=== PATIENT | male | born 1985 | race Caucasian/White ===

== ENCOUNTER 2017-11-02 05:52 | Emergency (ER) | payer OTHER ==
[~2017-11-02] VITALS: Ht 190.5 cm; Wt 108.9 kg
[2017-11-02] MEDS ORDERED: NORCO 5-325 TA1 EACH PO (06:20)
== END 2017-11-02 06:31 | disposition home or self-care (01) ==
LOC: ED 05:52
DX: M54.41 Lumbago with sciatica, right side (principal); Z79.899 Other long term (current) drug therapy
CPT/HCPCS: 99283

== ENCOUNTER 2019-03-28 10:15 | Emergency (ER) | payer OTHER ==
[~2019-03-28] VITALS: Ht 190.5 cm; Wt 90.7 kg
--- OUTSIDE RECORDS SUMMARY | ~2019-03-28 | XMS | Encounter Summary ---
Demographics + + + | Address | [address] | | | [place] [address] | + + + | Home Phone | | + + + | Preferred Language | Unknown | + + + | Marital Status | Single | + + + | Yazidism Affiliation | 1013 | + + + | Race | Unknown | + + + | Ethnic Group | Unknown | + + + Author + + + | Author | [facility] | | | and [place] | + + + | Organization | [facility] | | | and [place] [...] Team Providers + +------+ + | Care Rivet Passer Name | Role | Phone | + +------+ + PCP | Unavailable | + +------+ + Encounter Details +--------+ + + + + | Date | Type | Department | Care Team | Description | +--------+ + + + + | 08/11/ | Hospital | [facility] | | | | 1996 | Encounter | MED CTR GENERIC OP | | | | | | CONV DEPT [address] | | | | | | [place], | | | | | | [place] [address] | | | | | | [phone] | | | +--------+ + + + [...]
--- OUTSIDE RECORDS SUMMARY | ~2019-03-28 | XMS | Clinical Summary ---
Demographics + + + | Address | [address] | | | [place] [address] | + + + | Home Phone | | + + + | Preferred Language | Unknown | + + + | Marital Status | Single | + + + | Gnosticism Affiliation | 1013 | + + + | Race | Unknown | + + + | Ethnic Group | Unknown | + + + Author + + + | Author | [facility] | | | and [place] | + + + | Organization | [facility] | | | and [place] [...] Team Providers + +------+ + | Care Personal Computer Network Analyst Name | Role | Phone | [...]
--- OUTSIDE RECORDS SUMMARY | ~2019-03-28 | XMS | Clinical Summary ---
Demographics + + + | Address | [address] | | | [place] [address] | + + + | Home Phone | | + + + | Preferred Language | Unknown | + + + | Marital Status | Single | + + + | Yazdanism Affiliation | 1013 | + + + | Race | Unknown | + + + | Ethnic Group | Unknown | + + + Author + + + | Author | [facility] | | | and [place] | + + + | Organization | [facility] | | | and [...] Team Providers + +------+ + | Care Commercial Field Inspector Name | Role | Phone | [...]
--- OUTSIDE RECORDS SUMMARY | ~2019-03-28 | XMS | Encounter Summary ---
Demographics + + + | Address | [address] | | | [place] [address] | + + + | Home Phone | | + + + | Preferred Language | Unknown | + + + | Marital Status | Single | + + + | Jainism Affiliation | 1013 | + + + | Race | Unknown | + + + | Ethnic Group | Unknown | + + + Author + + + | Author | [facility] | | | and [place] | + + + | Organization | [facility] | | | and [...] Team Providers + +------+ + | Care Quill Fixer Name | Role | Phone | + +------+ + PCP | Unavailable | + +------+ + Encounter Details +--------+ + + + + | Date | Type | Department | Care Team | Description | +--------+ + + + + | 08/11/ | Hospital | [facility] | | | | 1996 | Encounter | MED CTR GENERIC OP | | | | | | CONV DEPT [address] | | | | | | [place], | | | | | | [place] [address] | | | | | | [phone] | | | +--------+ + + + [...]
[~2019-03-28 10:15] MED LIST: NORCO 5-325 TA1 EACH PO
== END 2019-03-28 14:20 | disposition home or self-care (01) ==
LOC: ED 10:15
DX: J10.1 Influenza due to other identified influenza virus with other respiratory manifestations (principal)
CPT/HCPCS: 71045; 80053; 80176; 85025; 87502; 96360; 96361; 99283-25; G0480; J7030

== ENCOUNTER 2019-03-29 18:33 | Observation (INO) | payer OTHER ==
[~2019-03-29] VITALS: Ht 190.5 cm; Wt 110.6 kg
--- OUTSIDE RECORDS SUMMARY | ~2019-03-29 | XMS | Clinical Summary ---
Demographics + + + | Address | [address] | | | [place] [address] | + + + | Home Phone | | + + + | Preferred Language | Unknown | + + + | Marital Status | Single | + + + | Sikhism Affiliation | 1013 | + + + | Race | Unknown | + + + | Ethnic Group | Unknown | + + + Author + + + | Author | [facility] | | | and [place] | + + + | Organization | [facility] | | | and [place] | [...] Team Providers + +------+ + | Care Top Spotter Name | Role | Phone | + +------+ + PCP | Unavailable | + +------+ + Allergies Not on File Medications Not on file Active Problems Not on file Social History + +-------+ +--------+------+ | Tobacco [...] recent travel history available. | + + Last Filed Vital Signs Not on file Plan of Treatment + + + + + | Health Maintenance | Due Date | Last Done | Comments | + + + + + | Vaccine: | | | | | Dtap/Tdap/Td (1 - | 2 | | | | Tdap) | | | | + + + + + | Vaccine: Influenza | | | | | (#1) | 9 | | | + + + + + Results Not on filefrom Last 3 Months"
--- OUTSIDE RECORDS SUMMARY | ~2019-03-29 | XMS | Encounter Summary ---
Demographics + + + | Address | [address] | | | [place] [address] | + + + | Home Phone | | + + + | Preferred Language | Unknown | + + + | Marital Status | Single | + + + | Latter Day Affiliation | 1013 | + + + | Race | Unknown | + + + | Ethnic Group | Unknown | + + + Author + + + | Author | [facility] | | | and [place] | + + + | Organization | [facility] [...] Team Providers + +------+ + | Care Customer Management Specialist Name | Role | Phone | + +------+ + PCP | Unavailable | + +------+ + Encounter Details +--------+ + + + + | Date | Type | Department | Care Team | Description | +--------+ + + + + | 08/11/ | Hospital | [facility] | | | | 1996 | Encounter | MED CTR GENERIC OP | | | | | | CONV DEPT [address] | | | | | | [place], | | | | | | [place] [address] | | | | | | [phone] | | | +--------+ + + + [...]
--- OUTSIDE RECORDS SUMMARY | ~2019-03-29 | XMS | Encounter Summary ---
Demographics + + + | Address | [address] | | | [place] [address] | + + + | Home Phone | | + + + | Preferred Language | Unknown | + + + | Marital Status | Single | + + + | Adventism Affiliation | 1013 | + + + | Race | Unknown | + + + | Ethnic Group | Unknown | + + + Author + + + | Author | [facility] | | | and [place] | + + + | Organization | [facility] | | | and [place] [...] Team Providers + +------+ + | Care Laminating Machine Operator Helper Name | Role | Phone | + +------+ + PCP | Unavailable | + +------+ + Encounter Details +--------+ + + + + | Date | Type | Department | Care Team | Description | +--------+ + + + + | 08/11/ | Hospital | [facility] | | | | 1996 | Encounter | MED CTR GENERIC OP | | | | | | CONV DEPT [address] | | | | | | [place], | | | | | | [place] [address] | | | | | | [phone] | | | +--------+ + + + [...]
--- OUTSIDE RECORDS SUMMARY | ~2019-03-29 | XMS | Encounter Summary ---
Demographics + + + | Address | [address] | | | [place] [address] | + + + | Home Phone | | + + + | Preferred Language | Unknown | + + + | Marital Status | Single | + + + | Lutheran Affiliation | 1013 | + + + | Race | Unknown | + + + | Ethnic Group | Unknown | + + + Author + + + | Author | [facility] | | | and [place] | + + + | Organization | [facility] | | | and [place] [...] Team Providers + +------+ + | Care Clicker Operator Name | Role | Phone | + +------+ + PCP | Unavailable | + +------+ + Encounter Details +--------+ + + + + | Date | Type | Department | Care Team | Description | +--------+ + + + + | 08/11/ | Hospital | [facility] | | | | 1996 | Encounter | MED CTR GENERIC OP | | | | | | CONV DEPT [address] | | | | | | [place], | | | | | | [place] [address] | | | | | | [phone] | | | +--------+ + + + [...]
--- OUTSIDE RECORDS SUMMARY | ~2019-03-29 | XMS | Encounter Summary ---
Demographics + + + | Address | [address] | | | [place] [address] | + + + | Home Phone | | + + + | Preferred Language | Unknown | + + + | Marital Status | Single | + + + | Jewish Affiliation | 1013 | + + + | Race | Unknown | + + + | Ethnic Group | Unknown | + + + Author + + + | Author | [facility] | | | and [place] | + + + | Organization | [facility] [...] Team Providers + +------+ + | Care Retail Service Specialist Name | Role | Phone | + +------+ + PCP | Unavailable | + +------+ + Encounter Details +--------+ + + + + | Date | Type | Department | Care Team | Description | +--------+ + + + + | 08/11/ | Hospital | [facility] | | | | 1996 | Encounter | MED CTR GENERIC OP | | | | | | CONV DEPT [address] | | | | | | [place], | | | | | | [place] [address] | | | | | | [phone] | | | +--------+ + + + [...]
--- OUTSIDE RECORDS SUMMARY | ~2019-03-29 | XMS | Clinical Summary ---
Demographics + + + | Address | [address] | | | [place] [address] | + + + | Home Phone | | + + + | Preferred Language | Unknown | + + + | Marital Status | Single | + + + | Mu-Ism Affiliation | 1013 | + + + | Race | Unknown | + + + | Ethnic Group | Unknown | + + + Author + + + | Author | [facility] | | | and [place] | + + + | Organization | [facility] | | | and [place] [...] Team Providers + +------+ + | Care Tentmaker Name | Role | Phone | + +------+ + | No, Physician | PCP | Unavailable | + +------+ + Allergies No Known Allergies Medications No known medications Active Problems + + + | Problem | Noted Date | + + + | 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 | + + + Encounters +--------+ + + + + | Date | Type | Specialty | Care Team | Description | +--------+ + + + + | 03/30/ | Hospital | Internal Medicine | Adilia Powers MD | | | 2019 | Encounter | | | | +--------+ + + + [...] + + + | Blood Pressure | 127/76 | 03/30/2019 3:48 PM | | | | | PST | | + + + + + | Pulse | 72 | 03/30/2019 3:48 PM | | | | | PST | | + + + + + | Temperature | 36.8 C (98.2 F) | 03/30/2019 3:48 PM | | | | | PST | | + + + + + | Respiratory Rate | 16 | 03/30/2019 3:48 PM | | | | | PST | | + + + + + | Oxygen Saturation | 95% | 03/30/2019 3:48 PM | | | | | PST | | + + + + + | Inhaled Oxygen | - | - | | | Concentration | | | | + + + + + | Weight | - | - | | + + + + + | Height | 190.5 cm (6' 3") | 03/30/2019 1:10 PM | | | | | PST | | + + + + + | Body Mass Index | - | - | | + + + + + Plan of Treatment + + + + [...] | | + + + + + Procedures The patient is currently admitted. The information in this section might not be complete un til the patient is discharged. + +--------+ + + + | Procedure [...] section. | + +--------+ + + + from Last [address] Angiogram Head Neck w Contrast (03/30/2019 [...] | | | + +---------+ + + from Last 3 Months Advance Directives + + + + + | Type | Date Recorded | Patient | Explanation | | | | Crosstie Inspector | | + + + + + | Power of | | | | | Pathology Laboratory Director | | | | + + + + + | Advance | 03/30/2019 | | | | Directive | 3:09 PM | | | + + + + + + + + + + | Code Status | Date | Date | Comments | | | Activated | Inactivated | | + + + + + | Full Code | 03/30/2019 | | | | | 1:16 PM | | | + + + + +
--- OUTSIDE RECORDS SUMMARY | ~2019-03-29 | XMS | Encounter Summary ---
Demographics + + + | Address | [address] | | | [place] [address] | + + + | Home Phone | | + + + | Preferred Language | Unknown | + + + | Marital Status | Single | + + + | Moravian Affiliation | 1013 | + + + | Race | Unknown | + + + | Ethnic Group | Unknown | + + + Author + + + | Author | [facility] | | | and [place] | + + + | Organization | [facility] | | | and [place] | [...] Team Providers + +------+ + | Care Information Support Project Manager Name | Role | Phone | + +------+ + | No, Physician | PCP | Unavailable | + +------+ + Encounter Details +--------+ + + + + | Date | Type | Department | Care Team | Description | +--------+ + + + + | 03/30/ | Hospital | [facility] | Adilia Powers MD | | | 2019 | Encounter | [facility] | [address] | | | | | CARE [address]LO[address] | [place] [address] | | | | | [address] | [phone] | | | | | [place], [place] | | | | | | [address] | | | | | | [phone] | | | +--------+ + + + [...] + + + documented in this encounter Plan of Treatment + +------+--------+ + + | Name | Type | Priori | Associated Diagnoses | Date/Time | | | | ty | | | + +------+--------+ + + | Hypercoag Consult, | Lab | Routin | | 03/30/2019 2:21 PM | | Extended Panel | | e | | PST | + +------+--------+ + + + + +--------+ + + | Name | Type | Priori | Associated Diagnoses | Order Schedule | | | | ty | | | + + +--------+ + + | ECHO Complete | Echocardiog | Routin | | One time imaging One | | | magdaleno | e | | time imaging for 1 | | | | | | Occurrences starting | | | | | | 03/30/2019 until | | | | | | 03/30/2019 | + + +--------+ + + | Oxygen Therapy | Respiratory | Routin | | Until Discontinued | | | Care | e | | until discontinued | | | | | | starting 03/30/2019 | + + +--------+ + + | POCT Glucose | Point of | Routin | | BID As Needed until | | | Care | e | | discontinued | | | Testing | | | starting 03/30/2019 | + + +--------+ + + | CBC with | Lab | Routin | | AM Lab Morning Lab | | Differential | | e | | for 1 Days starting | | | | | | 03/31/2019 until | | | | | | 03/31/2019 | + + +--------+ + + | Comprehensive | Lab | Routin | | AM Lab Morning Lab | | Metabolic Panel | | e | | for 1 Days starting | | | | | | 03/31/2019 until | | | | | | 03/31/2019 | + + +--------+ + + | Hemoglobin A1C | Lab | Routin | | AM Lab Morning Lab | | | | e | | for 1 Days starting | | | | | | 03/31/2019 until | | | | | | 03/31/2019 | + + +--------+ + + | Lipid Panel | Lab | Routin | | AM Lab Morning Lab | | | | e | | for 1 Days starting | | | | | | 03/31/2019 until | | | | | | 03/31/2019 | + + +--------+ + + | MRI Brain w wo | Imaging | Routin | | One time imaging One | | Contrast | | e | | time imaging for 1 | | | | | | Occurrences starting | | | | | | 03/30/2019 until | | | | | | 03/30/2019 | + + +--------+ + + | Hypercoag Consult, | Lab | Routin | | One Time for 1 | | Extended Panel | | e | | Occurrences starting | | | | | | 03/30/2019 until | | | | | | 03/30/2019 | + + +--------+ + + documented as of this encounter Procedures The patient is currently admitted. The [...] + + documented in this encounter Results CT Angiogram Head Neck w Contrast [...] | Signed by: John Paul Emanuel Richard Sign Date/Time: 03/30/2019 4:24 | | | [...] + | Diagnosis | + + | embolic CVA - Primary | + + documented in this encounter Administered Medications + +--------+---------+------+------+------+ | Medication Order | MAR | Action | Dose | Rate | Site | | | Action | Date | | | | + +--------+---------+------+------+------+ + +---+ | aspirin EC tablet 325 mg 325 | | | mg, Oral, DAILY, First dose on | | | 03/31/19 at 0900, Do not cut | | | or crush., | | + +---+ | | | + +---+ | aspirin suppository 300 mg 300 | | | mg, Rectal, DAILY, First dose on | | | 03/31/19 at 0900 | | + +---+ | | | + +---+ + +-------+ +-------+---+---+ | atorvaSTATin (LIPITOR) tablet | Given | 03/30/20 | 80 mg | | | | 80 mg 80 mg, Oral, DAILY, First | | 19 2:26 | | | | | dose on Fri03/30/19 at 1345 | | PM PST | | | | + +-------+ +-------+---+---+ +---+---+ | | | +---+---+ + +-------+ +-------+---+ + | enoxaparin (LOVENOX) 40 mg/0.4 | Given | 03/30/20 | 40 mg | | Abdomen- | | mL injection 40 mg 40 mg, | | 19 2:26 | | | RLQ | | Subcutaneous, EVERY 24 HOURS | | PM PST | | | | | (Daily), First dose on Fri | | | | | | | 03/30/19 at 1400 | | | | | | + +-------+ +-------+---+ + + +---+ | | | + +---+ | gadobutrol (GADAVIST) injection | | | 10 mL 10 mL, Intravenous, ONCE | | | PRN, Other, Starting 03/30/19 | | | at 1654, For 1 dose, MRI | | + +---+ | | | + +---+ | influenza quadrivalent | | | (FLUZONE, FLUARIX, AFLURIA | | | QUADRIVALENT) vaccine injection | | | (syringe) 0.5 mL 0.5 mL, | | | Intramuscular, ONE TIME VACCINE, | | | 03/31/19 at 1000, For 1 dose, | | | Give patient education | | | information. Jonatan prior to use., | | | | | + +---+ | | | + +---+ +---+ | | +---+ + +--------+ +--------+------+------+ | Medication Order | MAR | Action | Dose | Rate | Site | | | Action | Date | | | | + +--------+ +--------+------+------+ | aspirin chewable tablet 324 mg | Given | 03/30/20 | 324 mg | | | | 324 mg, Oral, ONCE, e 03/30/19 | | 19 2:26 | | | | | at 1345, For 1 dose | | PM PST | | | | + +--------+ +--------+------+------+ +---+---+ | | | +---+---+ + +-------+ +---------+---+---+ | iohexol (OMNIPAQUE 350) [...]
--- OUTSIDE RECORDS SUMMARY | ~2019-03-29 | XMS | Clinical Summary ---
Demographics + + + | Address | [address] | | | [place] [address] | + + + | Home Phone | | + + + | Preferred Language | Unknown | + + + | Marital Status | Single | + + + | Latter-Day Affiliation | 1013 | + + + | Race | Unknown | + + + | Ethnic Group | Unknown | + + + Author + + + | Author | [facility] | | | and [place] | + + + | Organization | [facility] | | | and [place] [...] Team Providers + +------+ + | Care Employment Attorney Name | Role | Phone | + [...]
--- OUTSIDE RECORDS SUMMARY | ~2019-03-29 | XMS | Clinical Summary ---
Demographics + + + | Address | [address] | | | [place] [address] | + + + | Home Phone | | + + + | Preferred Language | Unknown | + + + | Marital Status | Single | + + + | Scientology Affiliation | 1013 | + + + | Race | Unknown | + + + | Ethnic Group | Unknown | + + + Author + + + | Author | [facility] | | | and [place] | + + + | Organization | [facility] | [...] Team Providers + +------+ + | Care Business Management Manager Name | Role | Phone | [...]
--- OUTSIDE RECORDS SUMMARY | 2019-03-29 18:36 | XMS ---
PreManage Notification: EILEEN ROWE Security Visual Educator Events No recent Security Events currently on file CRITERIA MET - [facility] - 2 Visits in 30 Days CARE PROVIDERS There are no care providers on record at this time. Eugenio has no Care Guidelines for this patient. [facility] NOTE: Visits indicate total known visits. ED/C VISIT TRACKING (12 MO.) 03/29/2019 18:[address] [facility] [place] TYPE: Emergency COMPLAINT: - ALTERED LOC 03/28/2019 10:15 [facility] [place] TYPE: Emergency COMPLAINT: - DISORIENTED INPATIENT VISIT TRACKING (12 MO.) No inpatient visits to display in this time frame [email or web address]
--- NOTE | 2019-03-29 23:24 | NUR ---
PT ADMITTED TO ROOM 121 FROM ED. ALTERED MENTAL STATUS. PT ANSWERED QUESTIONS, BUT DID ASK FATHER FOR ANSWERS. AWARE OF SURROUNDINGS. STEADY ON FEET, HOWEVER WITH HIS RECENT MENTAL STATUS, BED ALARM WILL BE USED. DENIED NEED TO USE BATHROOM. EDUCATED TO CALL LIGHT, AND TO NOT GET UP, HE WAS TOLD THE BED ALARM WAS PLACED FOR HIS SAFETY.
--- NOTE | 2019-03-30 00:01 | NUR ---
ASSESSMENT COMPLETE. SCHEDULED MEDS GIVEN WITH PUDDING TO PREVENT STOMACH IRRITATION, NO ISSUES NOTED. PT ANSWERING QUESTIONS APPROPRIATELY, ALERT AND ORIENTED X 3. DENIES PAIN OR NAUSEA. REORIENTED TO ROOM AND CALL LIGHT. BED ALARM ON FOR SAFETY. CALL LIGHT IN REACH.
--- NOTE | 2019-03-30 02:16 | NUR ---
FAMILY AT BEDSIDE. PT RESTING WITH EYES CLOSED ON LEFT SIDE, NO APPARENT DISTRESS. RR EVEN AND UNLABORED. IVF INFUSING PER ORDER. CALL LIGHT IN REACH.
--- NOTE | 2019-03-30 05:55 | NUR ---
PT UP TO BR WITH SBA TO VOID 500 ML YELLOW URINE. PT A LITTLE UNSTEADY WHEN FIRST STANDING BUT AFTER STANDING FOR A FEW SECONDS GAIT BECAME STEADY. BACK TO BED, RAHAT WELL. PT ALERT AND ORIENTED X 3. SLOW TO RESPOND AT TIMES WHEN ASKED QUESTIONS BUT ANSWERS APPROPRIATELY. RECALLS THAT HIS FATHER AND SISTER BROUGHT HIM TO THE ED BECAUSE THEY WERE CONCERNED ABOUT HIS WELL BEING. IVF INFUSING. PT DENIES OTHER NEEDS, CALL LIGHT WITHIN REACH. BED ALARM ON.
--- NOTE | 2019-03-30 06:00 | NUR ---
PT ADMITTED FOR ALTERED SENSORIUM. SLEPT WELL. ALERT AND ORIENTED TO PERSON, PLACE, AND TIME. AT TIMES SLOW TO RESPOND TO QUESTIONS OR COMMANDS. DENIES PAIN OR NAUSEA. IVF. VOIDING QS. SBA. BED ALARM. REG DIET.
--- NOTE | 2019-03-30 07:15 | NUR ---
Patient leaves unit with imaging to MRI
--- NOTE | 2019-03-30 07:30 | NUR ---
Report received, orders acknowledged.
--- NOTE | 2019-03-30 07:45 | NUR ---
Patient returned to floor from imaging
--- NOTE | 2019-03-30 08:30 | NUR ---
Patient laying in bed watching tv with parents at bedside. Patient reports nausea, prn antiemetic given. Denies pain. LR running at 150 mls/hr. Assessment complete. Denies further needs at this time, call light within reach.
--- NOTE | 2019-03-30 09:20 | NUR ---
No breakfast delivered, patient denies need for breakfast. Patient encouraged to eat breakfast, continues to deny need for breakfast. Family in room, call light within reach.
--- NOTE | 2019-03-30 09:40 | NUR ---
PATIENT RESTING IN BED. PARENTS IN ROOM. VITAL SIGNS AND I&O DONE. PATIENT REFUSED TO ORDER BREAKFAST. CALL LIGHT WITHIN REACH. NO OTHER NEEDS AT THIS TIME
--- NOTE | 2019-03-30 09:45 | NUR ---
Patient sleeping in bed, rouses to voice. Denies nausea, states antiemetic helped. Family in room. Denies further needs at this time, call light within reach.
--- NOTE | 2019-03-30 11:40 | NUR ---
Transport arrived to take patient to [facility]. Report given. Patient leaves unit via stretcher. 1150: Report given to JOHN Villa at [facility]
--- NOTE | 2019-03-30 13:05 | NUR ---
SPENT QUITE A BIT OF TIME WITH PARENTS. HE SHARED WITH ME THAT HE HAD A STROKE AT THE SAME AGE HIS SON-ALITTLE UNNERVING FOR HIM. HAD PRAYER WITH PARENTS, GAVE THEM A LF PACKING LIST AND ESCORTED THEM OUT WITH PT EMT ARRIVED TO TRANSFER TO [facility]. GAVE ENCOURAGEMENT TO PT WELL.
== END 2019-03-30 11:40 | disposition short-term general hospital (02) ==
LOC: ED 18:33 → MS 18:34 → ED 22:36 → MS 22:36
PROVIDERS: ADMIT Internal Medicine
DX: I63.9 Cerebral infarction, unspecified (principal); E87.6 Hypokalemia; R93.0 Abnormal findings on diagnostic imaging of skull and head, not elsewhere classified; Z82.49 Family history of ischemic heart disease and other diseases of the circulatory system
CPT/HCPCS: 70450; 70551; 80053; 81001; 84270; 84403; 85025; 86140; 96360; 96361; 96374; 99284-25; G0378; J2405; J7030; J7121

== ENCOUNTER 2019-04-03 16:01 | Emergency (ER) | payer OTHER ==
[~2019-04-03] VITALS: Ht 190.5 cm; Wt 110.7 kg
--- OUTSIDE RECORDS SUMMARY | ~2019-04-03 | XMS | Encounter Summary ---
Demographics + + + | Address | [address] | | | [place] [address] | + + + | Home Phone | | + + + | Preferred Language | Unknown | + + + | Marital Status | Single | + + + | Scientologist Affiliation | [id number] | + + + | Race | Unknown | + + + | Ethnic Group | Unknown | + + + Author + + + | Author | [facility] | | | and [place] | + + + | Organization | [facility] | | | and [place] | + + + | Address | [...] Team Providers + +------+ + | Care [employer] Name | Role | Phone | + +------+ + | Ignacio Little DO | PCP | | + +------+ + Reason for Visit + + + | Reason | Comments | + + + | Disability Form | | + + + Encounter Details +--------+ + + + + | Date | Type | Department | Care Team | Description | +--------+ + + + + | 04/02/ | Telephone | [facility] | Janie Patel | Disability Form | | 2019 | | [address] | T, RN | | | | | [place] | | | | | | [phone] | | | | | | [phone] | | | +--------+ + + + [...] as of this encounter Plan of Treatment Not on filedocumented as of this encounter Visit Diagnoses Not on filedocumented in this encounter"
--- OUTSIDE RECORDS SUMMARY | ~2019-04-03 | XMS | Encounter Summary ---
Demographics + + + | Address | [address] | | | [place] [address] | + + + | Home Phone | | + + + | Preferred Language | Unknown | + + + | Marital Status | Single | + + + | Taoist Affiliation | 1013 | + + + | Race | Unknown | + + + | Ethnic Group | Unknown | + + + Author + + + | Author | [facility] | | | and [place] | + + + | Organization | [facility] | | | and [place] | [...] Team Providers + +------+ + | Care Platform Builder Name | Role | Phone | + +------+ + | No, Physician | PCP | Unavailable | + +------+ + Reason for Referral Evaluate & Treat (Urgent) +--------+ + + + + + | Status | Reason | Specialty | Diagnoses / | Referred By | Referred To | | | | | Procedures | Contact | Contact | +--------+ + + + + + | Closed | Specialty | Occupational | Diagnoses | Koko, | [facility] | | | Services | Therapy | | MD Jessica | [address] | | | Required | | Cerebrovascu | [address] | | | | | lar accident | [address] | [place] | | | | | (CVA) due | [place] | [address] | | | | | to embolism | [address] | Phone: | | | | | of middle | Phone: | [phone] | | | | | cerebral | [phone] | Fax: | | | | | artery, | Fax: | [phone] | | | | | unspecified | [phone] | | | | | | blood vessel | | | | | | | laterality | | | | | | | (HCC) | | | | | | | Procedures | | | | | | | OT Adult | | | +--------+ + + + + + Evaluate & Treat (Routine) +--------+ + + + + + | Status | Reason | Specialty | Diagnoses / | Referred By | Referred To | | | | | Procedures | Contact | Contact | +--------+ + + + + + | Closed | Specialty | Physical | Diagnoses | Koko | [facility] | | | Services | Therapy | | MD Jessica | [address] | | | Required | | Cerebrovascu | [address] | | | | | lar accident | [address]VD | [place] | | | | | (CVA) due | [place], [place] | [address] | | | | | to embolism | [address] | Phone: | | | | | of middle | Phone: | [phone] | | | | | cerebral | [phone] | Fax: | | | | | artery, | Fax: | [phone] | | | | | unspecified | [phone] | | | | | | blood vessel | | | | | | | laterality | | | | | | | ([facility]) | | | +--------+ + + + + + Evaluate & Treat (Urgent) +--------+ + + + + + | Status | Reason | Specialty | Diagnoses / | Referred By | Referred To | | | | | Procedures | Contact | Contact | +--------+ + + + + + | Closed | Specialty | Speech | Diagnoses | Koko, | | | | Services | Pathology / | | MD Jessica | | | | Required | Speech | Cerebrovascu | [address] | | | | | Therapy | lar accident | [address] | | | | | | (CVA) due | [place] | | | | | | to embolism | [address] | | | | | | of [facility] | Phone: | | | | | | cerebral | [phone] | | | | | | artery, | Fax: | | | | | | unspecified | [phone] | | | | | | blood vessel | | | | | | | laterality | | | | | | | (HCC) | | | +--------+ + + + + + Consultation (Routine) + + + + + + + | Status | Reason | Specialty | Diagnoses / | Referred By | Referred To | | | | | Procedures | Contact | Contact | + + + + + + + | Pending | Specialty | Neurology | Diagnoses | Koko, | | | Review | Services | | | MD Jessica | | | | Required | | Cerebrovascu | [address] | | | | | | lar accident | [address] | | | | | | (CVA) due | [place] | | | | | | to embolism | [address] | | | | | | of [facility] | Phone: | | | | | | cerebral | [phone] | | | | | | artery, | Fax: | | | | | | unspecified | [phone] | | | | | | blood vessel | | | | | | | laterality | | | | | | | (HCC) | | | + + + + + + + Reason for Visit Auth/Cert +--------+--------+ + + + + | Status | Reason | Specialty | Diagnoses / | Referred By | Referred To | | | | | Procedures | Contact | Contact | +--------+--------+ + + + + | | | | Diagnoses | | | | | | | EMbolic CVA | | | +--------+--------+ + + + + Encounter Details +--------+ + + + + | Date | Type | Department | Care Team | Description | +--------+ + + + + | 03/30/ | Hospital | [facility] | Adilia Powers MD | Cerebrovascular | | 2019 - | Encounter | [facility] | [address] | accident (CVA) due | | | | CARE FLOOR [address] | [place] [address] | to embolism of | | 04/01/ | | [address] | [phone] | middle cerebral | | 2019 | | [place], [place] | | artery, unspecified | | | | [address] | Jessica Sutherland MD | blood vessel | | | | [phone] | [address] | laterality (HCC) | | | | | [place] [address] | (Primary Dx); Acute | | | | | [phone] | ischemic stroke | | | | | | (HCC); Acute lacunar | | | | | | stroke (HCC); | | | | | | Encephalopathy acute | +--------+ + + + + Social [...] + + documented as of this encounter Last Filed Vital Signs + + + + + | Vital Sign | Reading | Time Taken | Comments | + + + + + | Blood Pressure | 107/64 | 04/01/2019 11:07 AM | | | | | PST | | + + + + + | Pulse | 72 | 04/01/2019 11:07 AM | | | | | PST | | + + + + + | Temperature | 36.6 C (97.8 F) | 04/01/2019 11:07 AM | | | | | PST | | + + + + + | Respiratory Rate | 17 | 04/01/2019 11:07 AM | | | | | PST | | + + + + + | Oxygen Saturation | 93% | 04/01/2019 11:07 AM | | | | | PST | | + + + + + | Inhaled Oxygen | - | - | | | Concentration | | | | + + + + + | Weight | 111 kg (244 lb 12.8 | 04/01/2019 3:24 AM | | | | oz) | PST | | + + + + + | Height | 190.5 cm (6' 3") | 03/30/2019 1:10 PM | | | | | PST | | + + + + + | Body Mass Index | 30.6 | 03/30/2019 1:10 PM | | | | | PST | | + + + + + documented in this encounter Discharge Summaries Jessica Sutherland MD - 04/01/2019 1:18 PM PSTFormatting of this note might be different from zenobia voss. Patient: Cristino Hickman : 1985 Date of Admission: 03/30/2019 Date of Discharge: 04/01/2019 Treatment Team: Timothy Carson MD Discharging Provider: Jessica Sutherland MD Discharge Diagnoses: Principal Problem: embolic CVA Procedures Performed: Chief Complaint: No chief complaint on file. 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 Patient was living with his girlfriend and parents in [facility] when they noted that he was altered. He had difficulty with com munication and memory impairment. He also had symptoms suggestive of apraxia he was seen i n the emergency department and was diagnosed with influenza B and was discharged home his sister checked up on him and since there was no improvement of his symptoms she decided to t parker him to [facility] yesterday. Patient denies any headache, blurry vision, nausea, vomiting, facial droop but does have slow thought process. Patient denies any upp er or lower extremity weakness or paresthesias he denies any chest pain or shortness of dante th. He denies any tobacco use, alcohol use, illicit drug use. He was taking testosterone shots for questionable low testosterone levels but has not taken anything since the last 1 month. At [facility] his vitals were stable.Labs were unremarkable. UDS was ne gative. CT head showed pituitary lesion likely representing a micro-or macroadenoma but wi th nonspecific white matter changes with consideration of demyelinating process. He was ad mitted overnight for observation by the hospitalist team and underwent an MRI today which sh owed multiple bilateral and small periventricular and subcortical white matter infarcts prim arily involving the middle cerebral artery distribution. Patient has been transferred for further neurological evaluation. He was on tele , remained sinus. ekg showed sinus. Was started on asa, high dose statins. BP management. His bp remained low 100's with no meds. Echo did not show any PFO's, valv e issues. Pt/ot/speech consulted. Recommended outpt f/u. Dr Lieberman consulted for recs. Hypercoag w/u pending. referrral to [facility] neuro done. Needs g enetic testing, notch3 gene testing,etc. Needs pcp, but family said they will get their own pcp setup. I offered CM to setup [facility] pcp, but they declined. [facility] neuro referral al so done. [place] papers signed. Discharge Exam and Data: Vital Signs: BP 107/64 | Pulse 72 | Temp 36.6 C (97.8 F) (Oral) | Resp 17 | Ht 1.905 m (6' 3") | Wt 111 kg (244 lb 12.8 oz) | SpO2 93% | BMI 30.60 kg/m Physical Exam Physical Exam: Constitutional: Alert and oriented to person, place, and time. Appears well-developed and w ell-nourished. HEENT: Neck supple, no JVD, non icteric sclera. Cardiovascular: Normal rate, regular rhythm, normal heart sounds with S1 and S2, Exam re veals no gallop and no friction rub. No murmur heard. No S3, No S4 Pulmonary/Chest: Effort normal and breath sounds normal. No stridor. No respiratory distres s. no wheezes. no rales. exhibits no tenderness. Abdominal: Soft. Bowel sounds are normal. exhibits no distension and no palpable mass. Ther e is no tenderness. There is no rebound and no guarding. Extremeties/Musculoskeletal: Normal range of motion.exhibits no tenderness. exhibits no ed sho. Neurological: Alert and oriented to person, place, and time. Motor, sensation intact. Fol lows commands. Perrla language and speech seem adequate. No slurred speech. Skin: Skin is warm and dry. Recent Labs Recent Labs Lab 03/31/19 0512 WBC 8.46 HGB 15.7 HCT 44.1 PLT 269 Recent Labs Lab 03/31/19 0512 NA 139 K 3.7 CL 108 CO2 26 BUN 12 CALCIUM 9.5 No results for input(s): INR in the last 168 hours. Recent Radiology Results Recent Results (from the past 360 hour(s)) CT Angiogram Head Neck w Contrast Impression 1. Decreased attenuation corresponds to areas of diffusion restriction seen on MRI consistent with subacute ischemia. No new areas identified. 2. No hemorrhagic transformation is demonstrated. 3. No intracranial aneurysm or occlusion. 4. No high-grade stenosis, aneurysm or dissection of the cervical arterial vasculature. Signed by: John Paul Emanuel Richard Sign Date/Time: 03/30/2019 4:[address] Angiogram Head Neck W Contrast Result Date: 03/30/2019 CT ANGIOGRAM OF THE HEAD WITHOUT AND WITH CONTRAST; CT ANGIOGRAM OF THE NECK WITH CONTRAST CLINICAL INFORMATION: Stroke yesterday. COMPARISON: None PROCEDURE: CT Head: Axial images we re obtained through the brain IV without contrast. CT Angiogram Head: Thin section axial daren ges were obtained through the brain during the arterial phase after IV administration. CT An giogram Neck: Thin section axial images were obtained through the neck during the arterial p hase after IV administration. NASCET criteria applied for internal carotid stenosis determin ation. 3D and multiplanar reconstructions were obtained from the acquisition data. Contrast: 100 ml omnipaque 350 IV. At least one of the following CT dose optimization techniques were used: Automated exposure control; Adjustment of mA and/or kV according to patient size; Use of iterative reconstruction technique. FINDINGS: CT Head: Brain: No midline shift is presen t. No uncal or tonsillar herniation is present. Decreased attenuation of the periventricul ar and subcortical white matter is noted, in similar distribution to areas of diffusion rest riction and prior T2 FLAIR signal. Ventricles and extra-axial fluid spaces: Normal. Paranasa l sinuses and mastoid air cells: There is mild mucosal thickening of the bilateral maxillary sinuses. There is debris along the external auditory canal bilaterally. Calvarium and extr acranial soft tissues: Normal. Orbits: Imaged portions of the orbits are normal. CTA Head: I ntracranial Segments of the Internal Carotid Arteries: Normal contrast enhancement without e vidence of occlusion, intraluminal thrombus, significant stenosis, or aneurysm. Middle Cereb ral Arteries: Normal contrast enhancement without evidence of occlusion, intraluminal thromb us, significant stenosis, or aneurysm. Anterior Cerebral Arteries: Normal contrast enhanceme nt without evidence of occlusion, intraluminal thrombus, significant stenosis, or aneurysm. Posterior Circulation: Intracranial segments of the vertebral arteries, basilar artery, infe rior cerebellar, superior cerebellar, and posterior cerebral arteries demonstrate normal con trast enhancement without evidence of occlusion, intraluminal thrombus, significant stenosis , or aneurysm. CTA Neck: Aortic Arch: Conventional anatomy. Brachiocephalic and subclavian a rteries demonstrate normal contrast enhancement without evidence of occlusion, intraluminal thrombus, or significant stenosis. Right Carotid Artery: Carotid origin, common carotid lissa ry, carotid bifurcation, external carotid artery, and cervical segments of the internal lynch tid artery demonstrate normal contrast enhancement without evidence of occlusion, intralumin al thrombus, dissection, or significant stenosis. The internal carotid artery measures 6.4 mm on image 130 of series 8 and distally measures 4.3 mm consistent with 0% stenosis. Left C arotid Artery: Carotid origin, common carotid artery, carotid bifurcation, external carotid artery, and cervical segments of the internal carotid artery demonstrate normal contrast enh ancement without evidence of occlusion, intraluminal thrombus, dissection, or significant st enosis. The internal carotid artery measures 7.1 mm on image 133 of series 8 and distally m easures 5.7 mm consistent with 0% stenosis by NASCET criteria. Vertebral Arteries: Vertebral artery origins and cervical segments of the vertebral arteries demonstrate normal contrast enhancement without evidence of occlusion, intraluminal thrombus, dissection, or significant stenosis. 1. Decreased attenuation corresponds to areas of diffusion restriction seen on MRI consiste nt with subacute ischemia. No new areas identified. 2. No hemorrhagic transformation is dem onstrated. 3. No intracranial aneurysm or occlusion. 4. No high-grade stenosis, aneurysm or dissection of the cervical arterial vasculature. Signed by: John Paul Emanuel Richard Sign Date/ Time: 03/30/2019 4:24 PM Outstanding Issues: Neuro f/u Discharge Information: Follow up: Current active diet order is: Diet Diet fat and cholesterol modified; Effective Now No follow-up provider specified. Discharge Medications New Medications Details aspirin 325 MG EC tablet Take 1 tablet by mouth Daily. Start: April 02, 2019 atorvaSTATin 40 mg tablet Take 1 tablet by mouth Daily. aka: LIPITOR Start: April 02, 2019 . Disposition: home Condition: Stable Code Status: Full Code Discharge took 40 minutes, to include final examination, discussion of admission, and prepa ration of prescriptions, instructions for on-going care, follow-up and documentation of disc harge summary. Jessica Sutherland MD 1:27 PM 04/01/2019 documented in this encou nter Discharge Instructions AttachmentsThe following attachments cannot be sent through Care Everywhere.Aspirin, ASA or al tablets (Belgian)Atorvastatin tablets (Belgian)documented in this encounter Medications at Time of Discharge + + + +---------+ + + | Medication | Sig | Dispensed | Refills | Start | End Date | | | | | | Date | | + + + +---------+ + + | aspirin 325 MG EC | Take 1 tablet by | | 0 | 04/02/20 | | | tablet | mouth Daily. | | | 19 | | + + + +---------+ + + | atorvaSTATin | Take 1 tablet by | 30 | 2 | 04/02/20 | | | (LIPITOR) 40 mg | mouth Daily. | tablet | | 19 | | | tablet | | | | | | + + + +---------+ + + documented as of this encounter Progress Notes Janie Garcia RN - 04/01/2019 1:58 PM PSTPt alert and oriented x4. VSS. Neuro checks done. 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 Patient was living with his girlfriend and parents in [facility] when they noted that he was altered. He had difficulty with communi cation and memory impairment. He also had symptoms suggestive of apraxia he was seen in the emergency department 2 days ago and was diagnosed with influenza B and was discharged home his sister checked up on him and since there was no improvement of his symptoms she decided to take him to [facility] yesterday. Patient denies any headache, blurry visi on, nausea, vomiting, facial droop but does have slow thought process. Patient denies any u pper or lower extremity weakness or paresthesias he denies any chest pain or shortness of br eath. He denies any tobacco use, alcohol use, illicit drug use. He was taking testosterone shots for questionable low testosterone levels but has not taken anything since the last 1 month. At [facility] his vitals were stable. Labs were unremarkable. UDS was negat jesus manuel. CT head showed pituitary lesion likely representing a micro-or macroadenoma but with n onspecific white matter changes with consideration of demyelinating process. He was admitte d overnight for observation by the hospitalist team and underwent an MRI today which showed multiple bilateral and small periventricular and subcortical white matter infarcts primarily involving the middle cerebral artery distribution. Patient has been transferred for [facility] neurological evaluation. SUBJECTIVE Feels fine. Denies any weakness, sob, numbness OBJECTIVE Vital Signs: BP 109/61 | Pulse 56 | Temp 36.6 C (97.9 F) (Oral) | Resp 16 | Ht 1.905 m (6' 3") | SpO2 94% Physical Exam Physical Exam: Constitutional: Alert and oriented to person, place, and time. Appears well-developed and w ell-nourished. HEENT: Neck supple, no JVD, non icteric sclera. Cardiovascular: Normal rate, regular rhythm, normal heart sounds with S1 and S2, Exam re veals no gallop and no friction rub. No murmur heard. No S3, No S4 Pulmonary/Chest: Effort normal and breath sounds normal. No stridor. No respiratory distres s. no wheezes. no rales. exhibits no tenderness. Abdominal: Soft. Bowel sounds are normal. exhibits no distension and no palpable mass. Ther e is no tenderness. There is no rebound and no guarding. Extremeties/Musculoskeletal: Normal range of motion.exhibits no tenderness. exhibits no ed sho. Neurological: Alert and oriented to person, place, and time. PERRLA FOLLOWS SIMPLE COMMANDS Skin: Skin is warm and dry. MEDS Scheduled Meds: aspirin 325 mg Oral Daily Or aspirin 300 mg Rectal Daily atorvaSTATin 80 mg Oral Daily enoxaparin 40 mg Subcutaneous Daily influenza IM vaccine 0.5 mL Intramuscular One Time Vaccine Continuous Infusions: PRN Meds:.gadobutrol DATA No results for input(s): INR in the last 168 hours. Recent Labs Lab 03/31/19 0512 WBC 8.46 HGB 15.7 HCT 44.1 PLT 269 No results for input(s): TROPONINT, CKMB in the last 168 hours. Invalid input(s): CKTOTAL, TROPONINI, CKMBINDEX, PCOTNI No results for input(s): CLARITYU, LEUKOCYTESUR, UROBILINOGEN, PHUR, BLOODU, KETONES, BILIR UBINUR, GLUCOSEU, RBCU, BACTERIA, COMU in the last 168 hours. Invalid input(s): UCOL, SPECGRAV, NITRITE, UPRO Ct Angiogram Head Neck W Contrast Result Date: 03/30/2019 1. Decreased attenuation corresponds to areas of diffusion restriction seen on MRI consiste nt with subacute ischemia. No new areas identified. 2. No hemorrhagic transformation is dem onstrated. 3. No intracranial aneurysm or occlusion. 4. No high-grade stenosis, aneurysm or dissection of the cervical arterial vasculature. Signed by: John Paul Emanuel Richard Sign Date/ Time: 03/30/2019 4:24 PM PROBLEM LIST Principal Problem: embolic CVA IMPRESSION/PLAN: Subacute CVA: Patient has short-term memory impairment and acute encephalopathy. Hx mentions taking excessive use of dayquil, nyquill. Recent Flu B infection. Imaging reviewed. Neuro consulted for recs Echo with bubble hypercoagulable work-up. labs pending He may need genetic testing for CADASIL due to his family history. We will continue aspirin, statin. Pituitary adenoma: Evident on CT but not on MRI. He has been told of low testosterone leve ls in the past. MRI with contrast has been ordered for further Recent Flu B infection Not sure if was treated, Tamiflu? Looks clinically improved. Jessica Sutherland MD 8:54 AM 03/31/2019 documented in this encou nter Plan of Treatment + +------+--------+ + + | Name | Type | Priori | Associated Diagnoses | Date/Time | | | | ty | | | + +------+--------+ + + | Lipid Panel | Lab | Routin | | 03/31/2019 5:12 AM | | | | e | | PST | + +------+--------+ + + | Hypercoag Consult, | Lab | Routin | | 03/30/2019 2:21 PM | | Extended Panel | | e | | PST | + +------+--------+ + + + + +--------+ + + | Name | Type | Priori | Associated Diagnoses | Order Schedule | | | | ty | | | + + +--------+ + + | Ambulatory referral | Outpatient | Routin | Cerebrovascular | Ordered: 04/01/2019 | | to Neurology | Referral | e | accident (CVA) due | | | | | | to embolism of | | | | | | middle cerebral | | | | | | artery, unspecified | | | | | | blood vessel | | | | | | laterality (HCC) | | + + +--------+ + + | AMB REFERRAL TO | Outpatient | Routin | Cerebrovascular | Ordered: 04/01/2019 | | [facility] | Referral | e | accident (CVA) due | | | THERAPY | | | to embolism of | | | | | | middle cerebral | | | | | | artery, unspecified | | | | | | blood vessel | | | | | | laterality ([facility]) | | + + +--------+ + + | Ambulatory Referral | Outpatient | Routin | Cerebrovascular | Ordered: 04/01/2019 | | to Located Within [facility] Physical | Referral | e | accident (CVA) due | | | Therapy | | | to embolism of | | | | | | middle cerebral | | | | | | artery, unspecified | | | | | | blood vessel | | | | | | laterality ([facility]) | | + + +--------+ + + | Ambulatory Referral | Outpatient | Routin | Cerebrovascular | Ordered: 04/01/2019 | | to Located Within [facility] | Referral | e | accident (CVA) due | | | Occupational Therapy | | | to embolism of | | | | | | middle cerebral | | | | | | artery, unspecified | | | | | | blood vessel | | | | | | laterality ([facility]) | | + + +--------+ + + documented as of this encounter Procedures + +--------+ + + + | Procedure Name | Priori | Date/Time | Associated Diagnosis | Comments | | | ty | | | | + +--------+ + + + | DIAGNOSTIC REPORT - | | 04/02/2019 | | Results for this | | EXTERNAL SCAN | | 12:00 AM | | procedure are in the | | | | PST | | results section. | + +--------+ + + + | ECHO COMPLETE | Routin | 03/31/2019 | | Results for this | | | e | 3:00 PM | | procedure are in the | | | | PST | | results section. | + +--------+ + + + | CBC WITH | Routin | 03/31/2019 | | Results for this | | DIFFERENTIAL | e | 5:12 AM | | procedure are in the | | | | PST | | results section. | + +--------+ + + + | HEMOGLOBIN A1C | Routin | 03/31/2019 | | Results for this | | | e | 5:12 AM | | procedure are in the | | | | PST | | results section. | + +--------+ + + + | COMPREHENSIVE | Routin | 03/31/2019 | | Results for this | | METABOLIC PANEL | e | 5:12 AM | | procedure are in the | | | | PST | | results section. | + +--------+ + + + | CT ANGIOGRAM HEAD | Routin | 03/30/2019 | | Results for this | | NECK | e | 3:49 PM | | procedure are in the | | | | PST | | results section. | + +--------+ + + + documented in this encounter Results DIAGNOSTIC REPORT - EXTERNAL SCAN (04/02/2019 12:00 AM PST) + + + | Narrative | Performed At | + + + | Ordered by an | | | unspecified provider. | | + + + ECHO Complete (03/31/2019 3:00 PM PST) + +--------+ + + + | Component | Value | Ref Range | Performed | Pathologist | | | | | At | Signature | + +--------+ + + + | Patient | [address] LB | | [facility] IMAGING | | | Weight | | | | | | (lbs) | | | | | + +--------+ + + + | Patient | 73 IN | | [facility] | | | Height | | | | | + +--------+ + + + | LVIDd | 4.83 | cm | [facility] | | + +--------+ + + + | FS | 37 | % | [facility] | | + +--------+ + + + | LA volume | 60.4 | mL | [facility] | | + +--------+ + + + | Ascending | 3.3 | cm | [facility] | | | aorta | | | | | + +--------+ + + + | AV mean | 3.24 | mmHg | [facility] | | | gradient | | | | | + +--------+ + + + | Aortic | 3.58 | cm2 | [facility] | | | Valve Area | | | | | | by | | | | | | Continuity | | | | | | VTI | | | | | + +--------+ + + + | MV Area by | 2.24 | cm2 | [facility] | | | P 1/2 | | | | | | method | | | | | + +--------+ + + + | PV peak | 5.08 | mmHg | [facility] | | | gradient | | | | | + +--------+ + + + | Pulm vein | 26.86 | | [facility] | | | S/D ratio | | | | | + +--------+ + + + | LVOT | 2.28 | cm | [facility] | | | diameter | | | | | + +--------+ + + + | LVOT peak | 90.65 | cm/s | [facility] | | | medardo | | | | | + +--------+ + + + | LVOT peak | 18.54 | cm | [facility] | | | VTI | | | | | + +--------+ + + + | AV peak medardo | 124.73 | cm/s | [facility] | | + +--------+ + + + | AV VTI | 21.12 | cm | [facility] | | + +--------+ + + + | AV peak | 6.22 | mmHg | [facility] | | | gradient | | | | | + +--------+ + + + | TV peak | 0.69 | mmHg | [facility] | | | gradient | | | | | + +--------+ + + + | PV mean | 2.68 | mmHg | [facility] | | | gradient | | | | | + +--------+ + + + | MV Pressure | 98.07 | msec | [facility] | | | 1/2 time | | | | | + +--------+ + + + | Pulm Vein | 48.85 | cm/s | [facility] | | | Peak S Medardo | | | | | + +--------+ + + + | Pulm Vein | 40.18 | cm/s | [facility] | | | Peak D Medardo | | | | | + +--------+ + + + | LA Volume | 25 | mL/m2 | [facility] | | | Index | | | | | + +--------+ + + + | AV LVOT | 3.29 | mmHg | [facility] | | | Peak | | | | | | Gradient | | | | | + +--------+ + + + | AV LVOT | 1.81 | mmHg | [facility] | | | Mean | | | | | | Gradient | | | | | + +--------+ + + + | TR Peak | 32 | mmHg | [facility] | | | Gradient | | | | | + +--------+ + + + | TR Velocity | 283.58 | cm | [facility] | | + +--------+ + + + | PI Peak | 112.69 | cm/s | [facility] | | | Velocity | | | | | + +--------+ + + + | LV | 8.92 | cm | [facility] | | | Diastolic | | | | | | Length 4C | | | | | + +--------+ + + + | RV | 3.49 | cm | [facility] | | | Diastolic | | | | | | Basal | | | | | | Diameter | | | | | + +--------+ + + + | LV | 67 | % | [facility] | | | Davidson's | | | | | | Biplane EF | | | | | + +--------+ + + + | LV ED | 132.83 | ml | [facility] | | | Volume | | | | | | (Davidson's) | | | | | + +--------+ + + + | LV ED | 56 | ml/m2 | [facility] | | | Volume | | | | | | Index | | | | | + +--------+ + + + | LV ES | 44.48 | ml | [facility] | | | Volume | | | | | + +--------+ + + + | LVOT Mean | 63.06 | cm/s | [facility] | | | Velocity | | | | | + +--------+ + + + | MV E' | 10.61 | cm/s | [facility] | | | Lateral | | | | | | Velocity | | | | | + +--------+ + + + | MV E' | 7.77 | cm/s | [facility] | | | Septal | | | | | | Velocity | | | | | + +--------+ + + + | MV | 302.82 | msec | [facility] | | | Deceleratio | | | | | | n Time | | | | | + +--------+ + + + | MV E/A | 1.05 | | [facility] | | | Ratio | | | | | + +--------+ + + + | MV Peak | 56.55 | cm/s | [facility] | | | A-Wave | | | | | + +--------+ + + + | MV Peak | 59.11 | cm/s | [facility] | | | E-Wave | | | | | + +--------+ + + + | TV | 255.39 | msec | [facility] | | | Deceleratio | | | | | | n Time | | | | | + +--------+ + + + | TV Peak | 27.52 | cm/s | [facility] | | | A-Wave | | | | | + +--------+ + + + | TV Peak | 41.43 | cm/s | [facility] | | | E-Wave | | | | | + +--------+ + + + | PV Mean | 76.23 | cm/s | [facility] | | | Velocity | | | | | + +--------+ + + + | AV Mean | 85.03 | cm/s | [facility] | | | Velocity | | | | | + +--------+ + + + | RA Area | 16.55 | cm2 | [facility] | | + +--------+ + + + | LA Area | 18.41 | cm2 | [facility] | | + +--------+ + + + | LA Systolic | 8.96 | mmHg | [facility] | | | Pressure | | | | | + +--------+ + + + | MV E/E | 7.61 | | [facility] | | | SEPTAL | | | | | + +--------+ + + + | MV E/E | 5.57 | | [facility] | | | LATERAL | | | | | + +--------+ + + + | LA Major | 0.2112 | cm | [facility] | | + +--------+ + + + | LV ES | 19 | ml/m2 | [facility] | | | Volume | | | | | | Index | | | | | + +--------+ + + + | Cardiac | 5.3 | l/min | [facility] | | | Output | | | | | + +--------+ + + + | Cardiac | 2.22 | l/min/m2 | [facility] | | | Index | | | | | + +--------+ + + + | Vitals | 70 | | [facility] | | | Heart Rate | | | | | | Rest | | | | | + +--------+ + + + | Vitals BP | 109 | | [facility] | | | Systolic | | | | | + +--------+ + + + | Vitals BP | 61 | | [facility] | | | Diastolic | | | | | + +--------+ + + + | IVS | 1.2 | cm | [facility] | | | Diastolic | | | | | | Thickness | | | | | | MM | | | | | + +--------+ + + + | LVPW | 1.11 | cm | [facility] | | | Diastolic | | | | | | Thickness | | | | | | MM | | | | | + +--------+ + + + | IVS | 1.46 | cm | [facility] | | | Systolic | | | | | | Thickness | | | | | | MM | | | | | + +--------+ + + + | LV Systolic | 3.04 | cm | [facility] | | | Diameter | | | | | | MM | | | | | + +--------+ + + + | LVPW | 1.76 | cm | [facility] | | | Systolic | | | | | | Thickness | | | | | | MM | | | | | + +--------+ + + + | TAPSE | 2.23 | cm | [facility] | | + +--------+ + + + | LVEF-TTE | 65 | % | [facility] | | | TRANSTHORAC | | | | | | IC ECHO | | | | | + +--------+ + + + + + | Specimen | + + | | + + + + + | Narrative | Performed At | + + + | This is a | [facility] | | normal echocardiographic study, with no evidence for an underlying | | | cardiac cause of his neurologic event. Normal left ventricular | | | systolic function. The left ventricular ejection fraction is 65%. | | | Normal size right ventricle, with normal right ventricular systolic | | | function. No significant valvular abnormalities are noted. There | | | is no interatrial shunt by Doppler and saline contrast. | | | There is no interatrial shunt by Doppler and saline contrast. | | | | | + + + + +---------+ + + | Performing | Address | City/State/Zipcode | Phone Number | | Organization | | | | + +---------+ + + | [facility] | | | | + +---------+ + + Hemoglobin A1C (03/31/2019 5:12 AM PST) + + + + + + | Component | Value | Ref Range | Performed | Pathologist | | | | | At | Signature | + + + + + + | Hemoglobin | 5.8Comment: HbA1c method | 4.0 - 6.0 % | [facility] | | | A1c | is certified by [facility] | | LABORATORY | | | | and traceable to the | | | | | | DCCT reference | | | | | | method.ADA guidelines | | | | | | indicate: | | | | | | Prediabetes: 5.7 - 6.4 | | | | | | Diabetes: >6.4 | | | | | | Glycemic control for | | | | | | adults with diabetes: | | | | | | <7.0Effective 04/29/2018: | | | | | | Note New Method | | | | + + + + + + | Estimated | 120Comment: Estimated | <154 mg/dL | [facility] | | | Average | Average Glucose | | LABORATORY | | | Glucose | calculated from | | | | | | hemoglobin A1c by use of | | | | | | the ADArecommended | | | | | | formula.Testing | | | | | | performed at [facility], [address] | | | | | | [place] [place], | | | | | | [place] [address] | | | | + + + + + + + + | Specimen | + + | Blood | + + + + + + + | Performing | Address | City/State/Zipcode | Phone Number | | Organization | | | | + + + + + | [facility] | [address] | [place] [address] | [phone] | + + + + + Comprehensive Metabolic Panel (03/31/2019 5:12 AM PST) + + + + + + | Component | Value | Ref Range | Performed | Pathologist | | | | | At | Signature | + + + + + + | Na | 139 | 135 - 145 | [facility] | | | | | mmol/L | LABORATORY | | + + + + + + | K | 3.7 | 3.5 - 4.9 | [facility] | | | | | mmol/L | LABORATORY | | + + + + + + | Cl | 108 | 99 - 109 mmol/L | [facility] | | | | | | LABORATORY | | + + + + + + | CO2 | 26 | 23 - 32 mmol/L | [facility] | | | | | | LABORATORY | | + + + + + + | Anion Gap | 9 | 5 - 20 mmol/L | [facility] | | | | | | LABORATORY | | + + + + + + | Glucose | 96 | 65 - 99 mg/dL | [facility] | | | | | | LABORATORY | | + + + + + + | BUN | 12 | 8 - 25 mg/dL | [facility] | | | | | | LABORATORY | | + + + + + + | Creatinine | 1.3 | 0.70 - 1.30 | [facility] | | | | | mg/dL | LABORATORY | | + + + + + + | BUN/Creatin | 9 | | [facility] | | | ine Ratio | | | LABORATORY | | + + + + + + | Calcium | 9.5 | 8.5 - 10.5 | [facility] | | | | | mg/dL | LABORATORY | | + + + + + + | Protein, | 6.9 | 6.3 - 8.2 g/dL | [facility] | | | Total | | | LABORATORY | | + + + + + + | Albumin | 3.4 (L) | 3.6 - 5.0 g/dL | [facility] | | | | | | LABORATORY | | + + + + + + | Globulin | 3.5 | 1.3 - 4.9 g/dL | [facility] | | | | | | LABORATORY | | + + + + + + | A/G Ratio | 1.0 | 1.0 - 2.4 | [facility] | | | | | | LABORATORY | | + + + + + + | BILIRUBIN, | 0.8 | 0.1 - 1.5 mg/dL | [facility] | | | TOTAL | | | LABORATORY | | + + + + + + | ALK PHOS | 65 | 35 - 115 U/L | [facility] | | | | | | LABORATORY | | + + + + + + | AST | 35 | 10 - 45 U/L | [facility] | | | | | | LABORATORY | | + + + + + + | ALT | 88 (H) | 10 - 65 U/L | [facility] | | | | | [facility] | | + + + + + + | Estimated | >60Comment: GFR <60: | >60 | [facility] | | | GFR | CHRONIC KIDNEY DISEASE, | mL/min/1.73m2 | LABORATORY | | | | IF FOUND OVER A 3 MONTH | | | | | | PERIOD.GFR <15: KIDNEY | | | | | | FAILURE.FOR | | | | | | AMERICANS, MULTIPLY THE | | | | | | CALCULATED GFR BY | | | | | | 1.210.This eGFR is | | | | | | calculated using the | | | | | | MDRD IDMS traceable | | | | | | equation.Testing | | | | | | performed at [facility], [address] | | | | | [facility], | | | | | | [place] [address] | | | | + + + + + + + + | Specimen | + + | Blood | + + + + + + + | Performing | Address | City/State/Zipcode | Phone Number | | Organization | | | | + + + + + | [facility] | [address] | [place] [address] | [phone] | + + + + + CBC with Differential (03/31/2019 5:12 AM PST) + + + + + + | Component | Value | Ref Range | Performed | Pathologist | | | | | At | Signature | + + + + + + | WBC | 8.46 | 3.80 - 11.00 | [facility] | | | | | K/uL | LABORATORY | | + + + + + + | RBC | 4.88 | 4.20 - 5.70 | [facility] | | | | | M/uL | LABORATORY | | + + + + + + | Hemoglobin | 15.7 | 13.2 - 17.0 | [facility] | | | | | g/dL | LABORATORY | | + + + + + + | Hematocrit | 44.1 | 39.0 - 50.0 % | [facility] | | | | | | LABORATORY | | + + + + + + | MCV | 90.4 | 80.0 - 100.0 fl | [facility] | | | | | | LABORATORY | | + + + + + + | MCH | 32.2 | 27.0 - 34.0 pg | [facility] | | | | | | LABORATORY | | + + + + + + | MCHC | 35.6 (H) | 32.0 - 35.5 | [facility] | | | | | g/dL | LABORATORY | | + + + + + + | RDW-SD | 41.6 | 37 - 53 fl | [facility] | | | | | | LABORATORY | | + + + + + + | Platelet | 269 | 150 - 400 K/uL | [facility] | | | Count | | | LABORATORY | | + + + + + + | MPV | 10.8 | fl | [facility] | | | | | | LABORATORY | | + + + + + + | Diff Type | AUTOMATED | | [facility] | | | | | | LABORATORY | | + + + + + + | % | 56.02 | % | [facility] | | | Neutrophils | | | LABORATORY | | + + + + + + | % | 31.14 | % | [facility] | | | Lymphocytes | | | LABORATORY | | + + + + + + | Monocyte % | 10.93 | % | [facility] | | | | | | LABORATORY | | + + + + + + | Eosinophils | 1.48 | % | [facility] | | | % | | | LABORATORY | | + + + + + + | Basophils % | 0.43 | % | [facility] | | | | | | LABORATORY | | + + + + + + | Neutrophils | 4.74 | 1.90 - 7.40 | [facility] | | | , Absolute | | K/uL | LABORATORY | | + + + + + + | Absolute | 2.63 | 1.00 - 3.90 | [facility] | | | Lymphocytes | | K/uL | LABORATORY | | + + + + + + | Absolute | 0.92 (H) | 0.00 - 0.80 | [facility] | | | Monocytes | | K/uL | LABORATORY | | + + + + + + | Eosinophils | 0.13 | 0.00 - 0.50 | [facility] | | | , Absolute | | K/uL | LABORATORY | | + + + + + + | Basophils, | 0.04Comment: Testing | 0.00 - 0.10 | [facility] | | | Absolute | performed at [facility], [address] | K/uL | LABORATORY | | | | [address], | | | | | | [place] [address] | | | | + + + + + + + + | Specimen | + + | Blood | + + + + + + + | Performing | Address | City/State/Zipcode | Phone Number | | Organization | | | | + + + + + | [facility] | [address] | [place] [address] | [phone] | + + + + + CT Angiogram Head Neck w Contrast (03/30/2019 3:49 PM PST) + + | Specimen | + + | | + + + + + | Impressions | Performed At | + + + | 1. Decreased attenuation corresponds to areas of diffusion | [facility] | | restriction seen on MRI consistent with subacute ischemia. No new | | | areas identified. 2. No hemorrhagic transformation is demonstrated. | | | 3. No intracranial aneurysm or occlusion. 4. No high-grade stenosis, | | | aneurysm or dissection of the cervical arterial vasculature. | | | Signed by: John Paul Emanuel, Rufus Sign Date/Time: 03/30/2019 4:24 | | | PM | | + + + + + + | Narrative | Performed At | + + + | CT ANGIOGRAM OF THE HEAD WITHOUT AND WITH CONTRAST; CT ANGIOGRAM | [facility] | | OF THE NECK WITH CONTRAST CLINICAL INFORMATION: Stroke | | | yesterday. COMPARISON: None PROCEDURE: CT Head: Axial images | | | were obtained through the brain IV without contrast. CT | | | Angiogram Head: Thin section axial images were obtained through the | | | brain during the arterial phase after IV administration. CT | | | Angiogram Neck: Thin section axial images were obtained through the | | | neck during the arterial phase after IV administration. NASCET | | | criteria applied for internal carotid stenosis determination. 3D | | | and multiplanar reconstructions were obtained from the acquisition | | | data. Contrast: 100 ml omnipaque 350 IV. At least one of the | | | following CT dose optimization techniques were used: Automated | | | exposure control; Adjustment of mA and/or kV according to patient | | | size; Use of iterative reconstruction technique. FINDINGS: CT | | | Head: Brain: No midline shift is present. No uncal or tonsillar | | | herniation is present. Decreased attenuation of the periventricular | | | and subcortical white matter is noted, in similar distribution to | | | areas of diffusion restriction and prior T2 FLAIR signal. | | | Ventricles and extra-axial fluid spaces: Normal. Paranasal sinuses | | | and mastoid air cells: There is mild mucosal thickening of the | | | bilateral maxillary sinuses. There is debris along the external | | | auditory canal bilaterally. Calvarium and extracranial soft | | | tissues: Normal. Orbits: Imaged portions of the orbits are normal. | | | CTA Head: Intracranial Segments of the Internal Carotid | | | Arteries: Normal contrast enhancement without evidence of occlusion, | | | intraluminal thrombus, significant stenosis, or aneurysm. Middle | | | Cerebral Arteries: Normal contrast enhancement without evidence of | | | occlusion, intraluminal thrombus, significant stenosis, or aneurysm. | | | Anterior Cerebral Arteries: Normal contrast enhancement without | | | evidence of occlusion, intraluminal thrombus, significant stenosis, or | | | aneurysm. Posterior Circulation: Intracranial segments of the | | | vertebral arteries, basilar artery, inferior cerebellar, superior | | | cerebellar, and posterior cerebral arteries demonstrate normal | | | contrast enhancement without evidence of occlusion, intraluminal | | | thrombus, significant stenosis, or aneurysm. CTA Neck: Aortic | | | Arch: Conventional anatomy. Brachiocephalic and subclavian arteries | | | demonstrate normal contrast enhancement without evidence of | | | occlusion, intraluminal thrombus, or significant stenosis. Right | | | Carotid Artery: Carotid origin, common carotid artery, carotid | | | bifurcation, external carotid artery, and cervical segments of the | | | internal carotid artery demonstrate normal contrast enhancement | | | without evidence of occlusion, intraluminal thrombus, dissection, or | | | significant stenosis. The internal carotid artery measures 6.4 mm | | | on image 130 of series 8 and distally measures 4.3 mm consistent with | | | 0% stenosis. Left Carotid Artery: Carotid origin, common carotid | | | artery, carotid bifurcation, external carotid artery, and cervical | | | segments of the internal carotid artery demonstrate normal contrast | | | enhancement without evidence of occlusion, intraluminal thrombus, | | | dissection, or significant stenosis. The internal carotid artery | | | measures 7.1 mm on image 133 of series 8 and distally measures 5.7 mm | | | consistent with 0% stenosis by NASCET criteria. Vertebral | | | Arteries: Vertebral artery origins and cervical segments of the | | | vertebral arteries demonstrate normal contrast enhancement without | | | evidence of occlusion, intraluminal thrombus, dissection, or | | | significant stenosis. | | + + + + + | Procedure Note | + + | Gabino, Rad Results In - 03/30/2019 4:28 PM PST | | CT ANGIOGRAM OF THE HEAD WITHOUT AND WITH CONTRAST; CT ANGIOGRAM OF THE | | NECK WITH CONTRAST | | | | CLINICAL INFORMATION: | | Stroke yesterday. | | | | COMPARISON: | | None | | | | PROCEDURE: | | CT Head: Axial images were obtained through the brain IV without | | contrast. | | | | CT Angiogram Head: Thin section axial images were obtained through the | | brain during the arterial phase after IV administration. | | | | CT Angiogram Neck: Thin section axial images were obtained through the | | neck during the arterial phase after IV administration. | | | | NASCET criteria applied for internal carotid stenosis determination. | | | | 3D and multiplanar reconstructions were obtained from the acquisition | | data. | | | | Contrast: 100 ml omnipaque 350 IV. | | | | At least one of the following CT dose optimization techniques were | | used: Automated exposure control; Adjustment of mA and/or kV according | | to patient size; Use of iterative reconstruction technique. | | | | FINDINGS: | | CT Head: | | Brain: No midline shift is present. No uncal or tonsillar herniation | | is present. Decreased attenuation of the periventricular and | | subcortical white matter is noted, in similar distribution to areas of | | diffusion restriction and prior T2 FLAIR signal. | | | | Ventricles and extra-axial fluid spaces: Normal. | | | | Paranasal sinuses and mastoid air cells: There is mild mucosal | | thickening of the bilateral maxillary sinuses. There is debris along | | the external auditory canal bilaterally. | | | | Calvarium and extracranial soft tissues: Normal. | | | | Orbits: Imaged portions of the orbits are normal. | | | | | | CTA Head: | | Intracranial Segments of the Internal Carotid Arteries: Normal contrast | | enhancement without evidence of occlusion, intraluminal thrombus, | | significant stenosis, or aneurysm. | | | | Middle Cerebral Arteries: Normal contrast enhancement without evidence | | of occlusion, intraluminal thrombus, significant stenosis, or aneurysm. | | | | Anterior Cerebral Arteries: Normal contrast enhancement without | | evidence of occlusion, intraluminal thrombus, significant stenosis, or | | aneurysm. | | | | Posterior Circulation: Intracranial segments of the vertebral arteries, | | basilar artery, inferior cerebellar, superior cerebellar, and posterior | | cerebral arteries demonstrate normal contrast enhancement without | | evidence of occlusion, intraluminal thrombus, significant stenosis, or | | aneurysm. | | | | | | CTA Neck: | | Aortic Arch: Conventional anatomy. Brachiocephalic and subclavian | | arteries demonstrate normal contrast enhancement without evidence of | | occlusion, intraluminal thrombus, or significant stenosis. | | | | Right Carotid Artery: Carotid origin, common carotid artery, carotid | | bifurcation, external carotid artery, and cervical segments of the | | internal carotid artery demonstrate normal contrast enhancement without | | evidence of occlusion, intraluminal thrombus, dissection, or | | significant stenosis. The internal carotid artery measures 6.4 mm on | | image 130 of series 8 and distally measures 4.3 mm consistent with 0% | | stenosis. | | | | Left Carotid Artery: Carotid origin, common carotid artery, carotid | | bifurcation, external carotid artery, and cervical segments of the | | internal carotid artery demonstrate normal contrast enhancement without | | evidence of occlusion, intraluminal thrombus, dissection, or | | significant stenosis. The internal carotid artery measures 7.1 mm on | | image 133 of series 8 and distally measures 5.7 mm consistent with 0% | | stenosis by NASCET criteria. | | | | Vertebral Arteries: Vertebral artery origins and cervical segments of | | the vertebral arteries demonstrate normal contrast enhancement without | | evidence of occlusion, intraluminal thrombus, dissection, or | | significant stenosis. | | | | IMPRESSION: | | 1. Decreased attenuation corresponds to areas of diffusion restriction | | seen on MRI consistent with subacute ischemia. No new areas identified. | | 2. No hemorrhagic transformation is demonstrated. | | 3. No intracranial aneurysm or occlusion. | | 4. No high-grade stenosis, aneurysm or dissection of the cervical | | arterial vasculature. | | | | | | | | | | Signed by: John Paul Emanuel Richard | | Sign Date/Time: 03/30/2019 4:24 PM | + + + +---------+ + + | Performing | Address | City/State/Zipcode | Phone Number | | Organization | | | | + +---------+ + + | [facility] | | | | + +---------+ + + documented in this encounter Visit Diagnoses + + | Diagnosis | + + | Cerebrovascular accident (CVA) due to embolism of middle cerebral artery, unspecified | | blood vessel laterality (HCC) | + + | Acute ischemic stroke (HCC) Unspecified cerebral artery occlusion with cerebral | | infarction | + + | Acute lacunar stroke (HCC) Unspecified cerebral artery occlusion with cerebral | | infarction | + + | Encephalopathy acute Encephalopathy, unspecified | + + documented in this encounter Administered Medications + +--------+ +--------+------+------+ | Medication Order | MAR | Action | Dose | Rate | Site | | | Action | Date | | | | + +--------+ +--------+------+------+ | aspirin chewable tablet 324 mg | Given | 03/30/20 | 324 mg | | | | 324 mg, Oral, ONCE, 03/30/19 | | 19 2:26 | | | | | at 1345, For 1 dose | | PM PST | | | | + +--------+ +--------+------+------+ +---+---+ | | | +---+---+ + +-------+ +--------+---+---+ | aspirin EC tablet 325 mg 325 | Given | 04/01/20 | 325 mg | | | | mg, Oral, DAILY, First dose on | | 19 10:23 | | | | | 03/31/19 at 0900, Do not cut | | AM PST | | | | | or crush., | | | | | | + +-------+ +--------+---+---+ +-------+ +--------+---+---+ | Given | 03/31/20 | 325 mg | | | | | 19 8:10 | | | | | | AM PST | | | | +-------+ +--------+---+---+ + +---+ | | | + +---+ | aspirin suppository 300 mg 300 | | | mg, Rectal, DAILY, First dose on | | | 03/31/19 at 0900 | | + +---+ | | | + +---+ + +-------+ +-------+---+---+ | atorvaSTATin (LIPITOR) tablet | Given | 04/01/20 | 80 mg | | | | 80 mg 80 mg, Oral, DAILY, First | | 19 10:23 | | | | | dose on 03/30/19 at 1345 | | AM PST | | | | + +-------+ +-------+---+---+ +-------+ +-------+---+---+ | Given | 03/31/20 | 80 mg | | | | | 19 8:10 | | | | | | AM PST | | | | +-------+ +-------+---+---+ | Given | 03/30/20 | 80 mg | | | | | 19 2:26 | | | | | | PM PST | | | | +-------+ +-------+---+---+ +---+---+ | | | +---+---+ + +-------+ +-------+---+ + | enoxaparin (LOVENOX) 40 mg/0.4 | Given | 03/31/20 | 40 mg | | Abdomen- | | mL injection 40 mg 40 mg, | | 19 2:23 | | | RLQ | | Subcutaneous, EVERY 24 HOURS | | PM PST | | | | | (Daily), First dose on Fri | | | | | | | 03/30/19 at 1400 | | | | | | + +-------+ +-------+---+ + +-------+ +-------+---+ + | Given | 03/30/20 | 40 mg | | Abdomen- | | | 19 2:26 | | | RLQ | | | PM PST | | | | +-------+ +-------+---+ + + +---+ | | | + +---+ | gadobutrol (GADAVIST) injection | | | 10 mL 10 mL, Intravenous, ONCE | | | PRN, Other, Starting Fri03/30/19 | | | at 1654, For 1 dose, MRI | | + +---+ | | | + +---+ | guaiFENesin-dextromethorphan | | | (ROBITUSSIN DM) 100-10 mg/5 mL | | | liquid 10 mL 10 mL, Oral, EVERY | | | 4 HOURS PRN, Cough, Starting Wed | | | 03/31/19 at 0902 | | + +---+ | | | + +---+ + +-------+ +---------+---+---+ | iohexol (OMNIPAQUE 350) 350 | Given | 03/30/20 | 100 mLs | | | | mg/mL injection 100 mL 100 mL, | | 19 3:33 | | | | | Intravenous, ONCE PRN, Other, | | PM PST | | | | | Starting Fri03/30/19 at 1533, | | | | | | | For 1 dose, Cat Scanner | | | | | | + +-------+ +---------+---+---+ +---+---+ | | | +---+---+ documented in this encounter
--- OUTSIDE RECORDS SUMMARY | ~2019-04-03 | XMS | Encounter Summary ---
Demographics + + + | Address | [address] | | | [place] [address] | + + + | Home Phone | | + + + | Preferred Language | Unknown | + + + | Marital Status | Single | + + + | Holiness Affiliation | 1013 | + + + | Race | Unknown | + + + | Ethnic Group | Unknown | + + + Author + + + | Author | [facility] | | | and [place] | + + + | Organization | [facility] | | | and [place] [...] Team Providers + +------+ + | Care Medical Laboratory Technical Officer Name | Role | Phone | + +------+ + PCP | Unavailable | + +------+ + Encounter Details +--------+ + + + + | Date | Type | Department | Care Team | Description | +--------+ + + + + | 08/11/ | Hospital | [facility] | | | | 1996 | Encounter | MED CTR GENERIC OP | | | | | | CONV DEPT [address] | | | | | | [place], | | | | | | [place] [address] | | | | | | [phone] | | | +--------+ + + + [...]
--- OUTSIDE RECORDS SUMMARY | ~2019-04-03 | XMS | Encounter Summary ---
Demographics + + + | Address | [address] | | | [place] [address] | + + + | Home Phone | | + + + | Preferred Language | Unknown | + + + | Marital Status | Single | + + + | Congregation Affiliation | 1013 | + + + | Race | Unknown | + + + | Ethnic Group | Unknown | + + + Author + + + | Author | [facility] | | | and [place] | + + + | Organization | [facility] | | | and [place] [...] Team Providers + +------+ + | Care Billing Analyst Name | Role | Phone | [...] | +--------+ + + + + | 12/19/ | Telephone | [facility] | Pratik Garvin, RN | Paperwork (FMLA) | | 2019 | | [address] | | | | | | [place], [place] | | | | | | [address] | | | | | | [phone] | | | +--------+ + + + [...]
--- OUTSIDE RECORDS SUMMARY | ~2019-04-03 | XMS | Encounter Summary ---
Demographics + + + | Address | [address] | | | [place] [address] | + + + | Home Phone | | + + + | Preferred Language | Unknown | + + + | Marital Status | Single | + + + | Congregational Affiliation | 1013 | + + + | Race | Unknown | + + + | Ethnic Group | Unknown | + + + Author + + + | Author | [facility] | | | and [place] | + + + | Organization | [facility] | | | and [place] [...] Team Providers + +------+ + | Care Hand Marker Name | Role | Phone | + [...] + + | 03/31/ | Telephone | [facility] | Юлия Yeh | Letter for | | 2019 | | [address] | School/Work ([employer] | | | | [place], [place] | | STD) | | | | [address] | | | | | | [phone] | | | +--------+ + + + [...]
--- OUTSIDE RECORDS SUMMARY | ~2019-04-03 | XMS | Encounter Summary ---
Demographics + + + | Address | [address] | | | [place] [address] | + + + | Home Phone | | + + + | Preferred Language | Unknown | + + + | Marital Status | Single | + + + | Episcopal Affiliation | 1013 | + + + | Race | Unknown | + + + | Ethnic Group | Unknown | + + + Author + + + | Author | [facility] | | | and [place] | + + + | Organization | [facility] | | | and [place] | [...] Team Providers + +------+ + | Care Utility Repairer Name | Role | Phone | + [...] + + | 12/20/ | Telephone | [facility] | Janie Patel | Referral | | 2019 | | [address] | | | | | [place], [place] | | | | | | [address] | | | | | | [phone] | | | +--------+ + + + [...]
--- OUTSIDE RECORDS SUMMARY | ~2019-04-03 | XMS | Clinical Summary ---
Demographics + + + | Address | [address] | | | [place] [address] | + + + | Home Phone | | + + + | Preferred Language | Unknown | + + + | Marital Status | Single | + + + | Methodist Affiliation | 1013 | + + + | Race | Unknown | + + + | Ethnic Group | Unknown | + + + Author + + + | Author | [facility] | | | and [place] | + + + | Organization | [facility] | | | and [...] Team Providers + +------+ + | Care Cutter Down Name | Role | Phone | + [...] tablet by | 30 | 2 | 03/15 | | Activ | | (LIPITOR) 40 mg | mouth Daily. | tablet | | 0/20 | | e | | tablet | | | | 19 | [...] + + | 04/02/ | Telephone | [facility] | Janie Patel | Referral | | 2018 | | | [place]i | | +--------+ + + + + | 04/02/ | Telephone | [facility] | Janie Patel | Disability Form | | 2018 | | | [place]i | | +--------+ + + + + | 04/01/ | Telephone | Hospitalist | Pratik Garvin RN | Paperwork (FMLA) | | 2018 | | | | | +--------+ + + + + | 03/31/ | Telephone | Hospitalist | Юлия Yeh | Letter for | | 2018 | | | [address] | School/Work (FMLA | | | | | | [place]) | +--------+ + + + + | 03/30/ | Hospital | Internal Medicine | Adilia Powers MD | Cerebrovascular | | 2019 - | Encounter | | Jessica Sutherland MD | accident (CVA) due | | | | | | to embolism of | | 04/01/ | | | | middle cerebral | | 2018 | | | | artery, unspecified | | | | | | blood vessel | | | | | | laterality (HCC) | | | | | | (Primary Dx); Acute | | | | | | ischemic stroke | | | | | | (HCC); Acute lacunar | | | | | | stroke (HCC); | | | | | | Encephalopathy acute | +--------+ + + + + from [...] + + | Vaccine: Influenza | | 01/18/2011 | | | (#1) | 9 | | | + + + + + Procedures + +--------+ + + + | [...] PANEL | Routin | 03/31/2019 | | | | | e | 5:12 AM | | | | | | PST | | | + +--------+ + + [...] + + from Last 3 Months Results DIAGNOSTIC REPORT - EXTERNAL SCAN (04/02/2019 [...] | | | + +---------+ + + CBC with Differential (03/31/2019 5:12 [...] | | | Absolute | performed at [facility], [address] | [address] | LABORATORY | | | | [address], | | | | | | [place] [address] | | | | + + + + + + + + | Specimen | + + | Blood | + + + + + + + | Performing | Address | City/State/Zipcode | Phone Number | | Organization | | | | + + + + + | [facility] | [address] | [place] [address] | [phone] | + + + + + Hemoglobin A1C (03/31/2019 5:12 AM PST) + + + + + + | Component | Value | Ref Range | Performed | Pathologist | | | | | At | Signature | + + + + + + | Hemoglobin | 5.8Comment: HbA1c method | 4.0 - 6.0 % | [facility] | | | A1c | is [...] | 120Comment: Estimated | <154 mg/dL | [facility] | | | Average | Average Glucose | | LABORATORY | | | Glucose | calculated from | | | | | | hemoglobin A1c by use of | | | | | | the ADArecommended | | | | | | formula.Testing | | | | | | performed at [facility], [address] | | | | | | [facility], | | | | | | [place] [address] | | | | + + + + + + + + | Specimen | + + | Blood | + + + + + + + | Performing | Address | City/State/Zipcode | Phone Number | | Organization | | | | + + + + + | [facility] | [address] | [place] [address] | [phone] | + + + + + Comprehensive [...] | | | | | | MDRD [facility] traceable | | | | | | equation.Testing | | | | | | performed at [facility], [address] | | | | | | [facility], | | | | | | [place] [address] | | | | + + + + + + + + | Specimen | + + | Blood | + + + + + + + | Performing | Address | City/State/Zipcode | Phone Number | | Organization | | | | + + + + + | [facility] | [address] | [place] [address] | [phone] | + + + + + CT [...] + + | Gabino, Rad Results In 03/30/2019 4:28 PM PST | | CT [...] +---------+ + + from Last 3 Months Insurance +-------+--------+ +--------+ + [...] + +------+ | MODA | MODA | [id number] | 04/14/19 | [phone] | [address] | PPO | | | [place] | | 19-Pre | 9 | [phone] | | | | [place] | | sent | | [place], | | | | [place] | | | | [place] [address] | | | | PPO | | [...] | Self | [birth year] | | [address] | | | al/Fam | | 1985 | [phone] | [place] [address] | | | [place] | | | 6 (Home) | | + +--------+ +--------+ + + Advance Directives + + + + + | Type | Date Recorded | Patient | Explanation | | | | Talent Assistant | | + + + + + | Power of | | | | | Central Supply Technician | | | | + + + [...]
--- OUTSIDE RECORDS SUMMARY | ~2019-04-03 | XMS | Encounter Summary ---
Demographics + + + | Address | [address] | | | [place] [address] | + + + | Home Phone | | + + + | Preferred Language | Unknown | + + + | Marital Status | Single | + + + | Alevism Affiliation | 1013 | + + + | Race | Unknown | + + + | Ethnic Group | Unknown | + + + Author + + + | Author | [facility] | | | and [place] | + + + | Organization | [facility] | | | and [...] Team Providers + +------+ + | Care Water Jet Loom Fixer Name | Role | Phone | [...] + + | 04/02/ | Telephone | [facility] | Janie Patel | Disability Form | | 2019 | | [address] | T, RN | | | | | [place] | | | | | | [address] | | | | | | [phone] | | | +--------+ + + + [...]
--- OUTSIDE RECORDS SUMMARY | ~2019-04-03 | XMS | Clinical Summary ---
Demographics + + + | Address | [address] | | | [place] [address] | + + + | Home Phone [...] Author + + + | Author | [facility] | | | and [place] | + + + | Organization | [facility] | | | and [place] [...] Team Providers + +------+ + | Care Instructor Adjunct Surgical Technician Name | Role | Phone | + [...] | | | Absolute | performed at [facility], [address] | [address] | LABORATORY | | | | [address], | | | | | | [place] [address] | | | | + + + + + + + + | Specimen | + + | Blood | + + + + + + + | Performing | Address | City/State/Zipcode | Phone Number | | Organization | | | | + + + + + | [facility] | [address] | [place] [address] | [phone] | + + + + + Hemoglobin A1C (03/31/2019 5:12 AM PST) + + + + + + | Component | Value | Ref Range | Performed | Pathologist | | | | | At | Signature | + + + + + + | Hemoglobin | 5.8Comment: HbA1c method | 4.0 - 6.0 % | [facility] | | | A1c | is [...] | 120Comment: Estimated | <154 mg/dL | [facility] | | | Average | Average Glucose | | LABORATORY | | | Glucose | calculated from | | | | | | hemoglobin A1c by use of | | | | | | the ADArecommended | | | | | | formula.Testing | | | | | | performed at [facility], [address] | | | | | | [facility], | | | | | | [place] [address] | | | | + + + + + + + + | Specimen | + + | Blood | + + + + + + + | Performing | Address | City/State/Zipcode | Phone Number | | Organization | | | | + + + + + | [facility] | [address] | [place] [address] | [phone] | + + + + + Comprehensive [...] | | | | | | MDRD [facility] traceable | | | | | | equation.Testing | | | | | | performed at [facility], [address] | | | | | | [facility], | | | | | | [place] [address] | | | | + + + + + + + + | Specimen | + + | Blood | + + + + + + + | Performing | Address | City/State/Zipcode | Phone Number | | Organization | | | | + + + + + | [facility] | [address] | [place] [address] | [phone] | + + + + + CT [...] + +------+ | MODA | MODA | [id number] | 04/14/19 | [phone] | [address] | PPO | | | [place] | | 19-Pre | 9 | [phone] | | | | [place] | | sent | | [place], | | | | [place] | | | | [place] [address] | | | | PPO | | [...] | 1985 | [phone] | [place] [address] | | | [place] | | | 6 (Home) | | + +--------+ +--------+ + + Advance Directives + + + + + | Type | Date Recorded | Patient | Explanation | | | | Swimmer | | + + + + + | Power of | | | | | Master Merchandiser | | | | + + + [...]
--- OUTSIDE RECORDS SUMMARY | ~2019-04-03 | XMS | Encounter Summary ---
Demographics + + + | Address | [address] | | | [place] [address] | + + + | Home Phone | | + + + | Preferred Language | Unknown | + + + | Marital Status | Single | + + + | Mandaen Affiliation | 1013 | + + + | Race | Unknown | + + + | Ethnic Group | Unknown | + + + Author + + + | Author | [facility] | | | and [place] | + + + | Organization | [facility] | | | and [place] [...] Providers + +------+ + | Care Aircraft Powertrain Repairer Name | Role | Phone | [...] + + | 03/31/ | Telephone | [facility] | Юлия Yeh | Letter for | | 2019 | | [address] | School/Work ([employer] | | | | [place], [place] | | STD) | | | | [address] | | | | | | [phone] | | | +--------+ + + + [...]
--- OUTSIDE RECORDS SUMMARY | ~2019-04-03 | XMS | Encounter Summary ---
Demographics + + + | Address | [address] | | | [place] [address] | + + + | Home Phone | | + + + | Preferred Language | Unknown | + + + | Marital Status | Single | + + + | Advent Affiliation | 1013 | + + + | Race | Unknown | + + + | Ethnic Group | Unknown | + + + Author + + + | Author | [facility] | | | and [place] | + + + | Organization | [facility] | | | and [place] | + [...] Team Providers + +------+ + | Care Freedom Of Information Officer Name | Role | Phone | [...] [address] | | | | | | [place], [place] | | | | | | [address] | | | | | | [phone] | | | +--------+ + + + [...]
--- OUTSIDE RECORDS SUMMARY | ~2019-04-03 | XMS | Encounter Summary ---
Demographics + + + | Address | [address] | | | [place] [address] | + + + | Home Phone | | + + + | Preferred Language | Unknown | + + + | Marital Status | Single | + + + | Tenriism Affiliation | 1013 | + + + | Race | Unknown | + + + | Ethnic Group | Unknown | + + + Author + + + | Author | [facility] | | | and [place] | + + + | Organization | [facility] | | | and [...] Team Providers + +------+ + | Care Political Scientist Name | Role | Phone | + [...] | | lar accident | [address] | [place] | | | | | (CVA) due | [place] | [address] | | | | | to embolism | [address] | Phone: | | | | | of middle | Phone: | [phone] | | | | | cerebral | [phone] | Fax: | | | | | artery, | Fax: | [phone] | | | | | unspecified | [phone] | | | | | | blood [...] | | | | (CVA) due | [place], [place] | [address] | | | | | to embolism | [address] | Phone: | | | | | of middle | Phone: | [phone] | | | | | cerebral | [phone] | Fax: | | | | | artery, | Fax: | [phone] | | | | | unspecified | [phone] | | | | | | blood vessel | | | | | | | laterality | | | | | | | ([facility]) | | | +--------+ + + + [...] | | | (CVA) due | [place] | | | | | | to embolism | [address] | | | | | | [facility] | Phone: | | | | | | cerebral | [phone] | | | | | | artery, | Fax: | | | | | | unspecified | [phone] | | | | | | blood [...] | | | | to embolism | [address] | | | | | | of [facility] | Phone: | | | | | | cerebral | [phone] | | | | | | artery, | Fax: | | | | | | unspecified | [phone] | | | | | | blood [...] + + | 03/30/ | Hospital | [facility] | Adilia Powers MD | Cerebrovascular | | 2019 - | Encounter | [facility] | [address] | accident (CVA) due | | | | CARE FLOOR [address] | [place] [address] | to embolism of | | 04/01/ | | [address] | [phone] | middle cerebral | | 2019 | | [place], [place] | | artery, unspecified | | | | [address] | Jessica Sutherland MD | blood vessel | | | | [phone] | [address] | laterality (HCC) | | | | | [place] [address] | (Primary Dx); Acute | | | | | [phone] | ischemic stroke | | | | [...] of 46 who was transferred here from [facility] for altered mental status. Patient was living with his girlfriend and parents in [place] when they noted that he was [...] she decided to t parker him to [facility] yesterday. Patient denies any headache, blurry vision, [...] anything since the last 1 month. At [facility] his vitals were stable.Labs were unremarkable. UDS [...] for recs. Hypercoag w/u pending. referrral to [facility] neuro done. Needs g enetic testing, notch3 gene testing,etc. Needs pcp, but family said they will get their own pcp setup. I offered CM to setup [facility] pcp, but they declined. [facility] neuro referral al so done. 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 Patient was living with his girlfriend and parents in [place] when they noted that he was [...] symptoms she decided to take him to [facility] yesterday. Patient denies any headache, blurry visi [...] anything since the last 1 month. At [facility] his vitals were stable. Labs were unremarkable. [...] distribution. Patient has been transferred for [facility] neurological evaluation. SUBJECTIVE Feels fine. Denies any [...] | Cerebrovascular | Ordered: 04/01/2019 | | [facility] | Referral | e | accident (CVA) due | | | THERAPY | | | to embolism of | | | | | | middle cerebral | | | | | | artery, unspecified | | | | | | blood vessel | | | | | | laterality ([facility]) | | + + +--------+ + + [...] | | | | | | laterality ([facility]) | | + + +--------+ + + [...] | | | | | | laterality ([facility]) | | + + +--------+ + + [...] method | 4.0 - 6.0 % | [facility] | | | A1c | is certified by [facility] | | LABORATORY | | | [...] | 120Comment: Estimated | <154 mg/dL | [facility] | | | Average | Average Glucose | | LABORATORY | | | Glucose | calculated from | | | | | | hemoglobin A1c by use of | | | | | | the ADArecommended | | | | | | formula.Testing | | | | | | performed at [facility], [address] | | | | | | [address], | | | | | | [place] [address] | | | | + + + + + + + + | Specimen | + + | Blood | + + + + + + + | Performing | Address | City/State/Zipcode | Phone Number | | Organization | | | | + + + + + | [facility] | [address] | [place] [address] | [phone] | + + + + + Comprehensive [...] | >60Comment: GFR <60: | >60 | [facility] | | | GFR | CHRONIC KIDNEY [...] | | | | | performed at [facility], [address] | | | | | | [facility], | | | | | | [place] [address] | | | | + + + + + + + + | Specimen | + + | Blood | + + + + + + + | Performing | Address | City/State/Zipcode | Phone Number | | Organization | | | | + + + + + | [facility] | [address] | [place] [address] | [phone] | + + + + + CBC [...] | | | Absolute | performed at [facility], [address] | [address] | LABORATORY | | | | [address], | | | | | | [place] [address] | | | | + + + + + + + + | Specimen | + + | Blood | + + + + + + + | Performing | Address | City/State/Zipcode | Phone Number | | Organization | | | | + + + + + | [facility] | [address] | [place] [address] | [phone] | + + + + + CT [...]
--- OUTSIDE RECORDS SUMMARY | ~2019-04-03 | XMS | Encounter Summary ---
Demographics + + + | Address | [address] | | | [place] [address] | + + + | Home Phone | | + + + | Preferred Language | Unknown | + + + | Marital Status | Single | + + + | Zoroastrian Affiliation | 1013 | + + + | Race | Unknown | + + + | Ethnic Group | Unknown | + + + Author + + + | Author | [facility] | | | and [place] | + + + | Organization | [facility] [...] Providers + +------+ + | Care Supervisor Roller Printing Name | Role | Phone | + [...] + + | 12/20/ | Telephone | [facility] | Janie Patel | Referral | | 2019 | | [address] | | | | | [place], [place] | | | | | | [address] | | | | | | [phone] | | | +--------+ + + + [...]
--- OUTSIDE RECORDS SUMMARY | ~2019-04-03 | XMS | Encounter Summary ---
Demographics + + + | Address | [address] | | | [place] [address] | + + + | Home Phone | | + + + | Preferred Language | Unknown | + + + | Marital Status | Single | + + + | Confucianist Affiliation | 1013 | + + + | Race | Unknown | + + + | Ethnic Group | Unknown | + + + Author + + + | Author | [facility] | | | and [place] | + + + | Organization | [facility] | | | and [place] | [...] Team Providers + +------+ + | Care Esthetician/Spa Coordinator Name | Role | Phone | + +------+ + PCP | Unavailable | + +------+ + Encounter Details +--------+ + + + + | Date | Type | Department | Care Team | Description | +--------+ + + + + | 08/11/ | Hospital | [facility] | | | | 1996 | Encounter | MED [facility] GENERIC OP | | | | | | CONV DEPT [address] | | | | | | [address], | | | | | | [place] [address] | | | | | | [phone] | | | +--------+ + + + [...]
--- OUTSIDE RECORDS SUMMARY | 2019-04-03 16:04 | XMS ---
PreManage Notification: EILEEN ROWE Security Mailroom Clerk Events No recent Security Events currently on file CRITERIA MET - Group Notification - [facility] - 2 Visits in 30 Days CARE PROVIDERS Mehreen Castro PA-C Treatment Current PHONE: Unknown Eugenio has no Care Guidelines for this patient. [place] VISIT COUNT (12 MO.) 3 [facility] TOTAL 3 NOTE: Visits indicate total known visits. 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 [place] TYPE: Observation COMPLAINT: - ENCEPHALOPATHY DIAGNOSES: - Hypokalemia - Altered mental status, unspecified - Abnormal findings on dx imaging of skull and head, NEC - Family hx of ischem heart dis and oth dis of the circ sys - Cerebral infarction, unspecified [email or web address]
[2019-04-03] MEDS ORDERED: LIPITOR40 MG PO (16:23)
[2019-04-03] MEDS ORDERED: ASPIRIN325 MG PO (16:23)
--- NOTE | 2019-04-04 11:11 | EKG ---
[facility] [address] [place], [place] [address] Signed Normal sinus rhythm Nonspecific T wave abnormality Abnormal ECG No previous ECGs available Confirmed by STEPHANIE ROSEN DO ([id number]) on 04/04/2019 11:11:21 AM Electronically Signed By: STEPHANIE ROSEN DO 04/04/19 1111 PATIENT NAME: EILEEN ROWE Electrocardiogram DATE OF : 81 PHYSICIAN: STEPHANIE ROSEN DO REPORT #: [id number] REPORT IS CONFIDENTIAL AND NOT TO BE RELEASED WITHOUT AUTHORIZATION
== END 2019-04-03 18:50 | disposition home or self-care (01) ==
LOC: ED 16:01
DX: I67.850 Cerebral autosomal dominant arteriopathy with subcortical infarcts and leukoencephalopathy (principal); Z79.82 Long term (current) use of aspirin; Z79.899 Other long term (current) drug therapy
CPT/HCPCS: 80053; 81001; 84484; 85025; 93005; 93010; 99285-25; G0480

== ENCOUNTER 2019-09-17 21:38 | Emergency (ER) | payer OTHER ==
[~2019-09-17] VITALS: Ht 190.5 cm; Wt 111.1 kg
--- OUTSIDE RECORDS SUMMARY | ~2019-09-17 | XMS | Encounter Summary ---
Demographics + + + | Address | [address] | | | [place] [address] | + + + | Home Phone | | + + + | Preferred Language | Unknown | + + + | Marital Status | Single | + + + | Tenriism Affiliation | 1013 | + + + | Race | Unknown | + + + | Ethnic Group | Unknown | + + + Author + + + | Author | [facility] | | | and Markana | + + + | Organization | [facility] | | | and Markana | + + + | Address | Unknown | + + + | Phone | Unavailable | + + + Support + + +---------+ + | Name | Relationship | Address | Phone | + + +---------+ + | Kenn Bundy ECON | Unknown | | | [place] | | | | + + +---------+ + Care Team Providers + +------+ + | Care Part Time Receptionist Name | Role | Phone | + +------+ + | Ignacio Little DO | PCP | | + +------+ + Reason for Visit +--------+ + | Reason | Comments | +--------+ + | Other | | +--------+ + Encounter Details +--------+ + + + + | Date | Type | Department | Care Team | Description | +--------+ + + + + | 07/05/ | Telephone | [place] [facility] | Ignacio Little | Other | | 2020 | | [facility] | E, DO [address] | | | | | [facility] [address] | [place], [place] | | | | | [address] [place], | [address] | | | | | [place] [address] | [phone] | | | | | [phone] | | | +--------+ + + + + Social History + +-------+ +--------+------+ | Tobacco Use | Types | Packs/Day | Years | Date | | | | | Used | | + +-------+ +--------+------+ | Never Smoker | | | | | + +-------+ +--------+------+ + +---+---+---+ | Smokeless Tobacco: | | | | | Never Used | | | | + +---+---+---+ + + +---------+ + | Alcohol Use | Drinks/Week | oz/Week | Comments | + + +---------+ + | Yes | | | rarely | + + +---------+ + + + + | Sex Assigned at | Date Recorded | | | | + + + | Not on file | | + + + + + + + | Job Start Date | Occupation | Industry | + + + + | Not on file | Not on file | Not on file | + + + + + + + + | Travel History | Travel Start | Travel End | + + + + + + | No recent travel history available. | + + documented as of this encounter Plan of Treatment +--------+---------+ + + + | Date | Type | Specialty | Care Team | Description | +--------+---------+ + + + | 09/27/ | Office | Primary Care | Ignacio Little | | | 2019 | Visit | | [facility] [address] | | | | | | [place] | | | | | | [address] | | | | | | [phone] | | | | | | | | +--------+---------+ + + + | 11/01/ | Office | Neurology | Ignacio Little | | | 2019 | Visit | | E, DO [address] | | | | | | [place] | | | | | | [address] | | | | | | [phone] | | | | | | | | | | | | Elsie Espinosa, | | | | | | [address] | | | | | | [place] | | | | | | [place] [address] | | | | | | [phone] | | | | | | | | +--------+---------+ + + + documented as of this encounter Visit Diagnoses Not on filedocumented in this encounter"
--- OUTSIDE RECORDS SUMMARY | ~2019-09-17 | XMS | Encounter Summary ---
Demographics + + + | Address | [address] | | | [place] [address] | + + + | Home Phone | | + + + | Preferred Language | Unknown | + + + | Marital Status | Single | + + + | Taoist Affiliation | NON | + + + | Race | White | + + + | Ethnic Group | Not or | + + + Author + + + | Author | [facility] | + + + | Organization | [facility] | + + + | Address | Unknown | + + + | Phone | Unavailable | + + + Support + + +---------+ + | Name | Relationship | Address | Phone | + + +---------+ + | Ayesha Hankins | ECON | Unknown | | + + +---------+ + Care Team Providers + +------+ + | Care Bone Glue Maker Name | Role | Phone | + +------+ + | Ignacio Little DO | PCP | | + +------+ + Reason for Visit + + + | Reason | Comments | + + + | Referral to clinical | | | genetics service | | + + + Encounter Details +--------+ + + + + | Date | Type | Department | Care Team | Description | +--------+ + + + + | 05/27/ | Documentati | Neuro Medical | Moon Martini MS | Referral to clinical | | 2020 | on | [facility] at Center | [address] | genetics service | | | | for Health and | [address] [place], | | | | | Healing [address] | [place] [address] | | | | | [facility] | | | | | | [facility] and [facility], | | | | | | [address] | | | | | | [place], [place] | | | | | | [address] | | | | | | [phone] | | | +--------+ + + + + Social History + +-------+ +--------+------+ | Tobacco Use | Types | Packs/Day | Years | Date | | | | | Used | | + +-------+ +--------+------+ | Never Assessed | | | | | + +-------+ +--------+------+ + + + | Sex Assigned at [...] Description | +--------+---------+ + + + | 12/02/ | Office | Medical Genetics | Bakari, | | | 2019 | Visit | | [address] Gutierrez MD [address] | | | | | [address] | | | | | | [place] | | | | | | [address] | | | | | | [phone] | | | | | | | | +--------+---------+ + + + documented as of this encounter Visit Diagnoses Not on filedocumented in this encounter"
--- OUTSIDE RECORDS SUMMARY | ~2019-09-17 | XMS | Encounter Summary ---
Demographics + + + | Address | [address] | | | [place] [address] | + + + | Home Phone | | + + + | Preferred Language | Unknown | + + + | Marital Status | Single | + + + | Uatsdin Affiliation | 1013 | + + + | Race | Unknown | + + + | Ethnic Group | Unknown | + + + Author + + + | Author | [facility] | | | and Markana | + + + | Organization | [facility] | | | and Markana | [...] Team Providers + +------+ + | Care Button Tacker Name | Role | Phone | + +------+ + | Ignacio Little DO | PCP | | + +------+ + Reason for Visit + + + | Reason | Comments | + + + | Transfer Orders | | + + + Encounter Details +--------+ + + + + | Date | Type | Department | Care Team | Description | +--------+ + + + + | 04/19/ | Telephone | [facility] | Ignacio Little | Transfer Orders | | 2020 | | [facility] | E, DO [address] | | | | | [facility] [address] | [place], [place] | | | | | [address] [place], | [address] | | | | | [place] [address] | [phone] | | | | | [phone] | | | +--------+ + + + [...] | | 2019 | Visit | | DO [place] [address] | | | | | | [place] | | | | | | [address] | | | | | | [phone] | | | | | | | | +--------+---------+ + + + | 11/01/ | Office | Neurology | Ignacio Little | | | 2020 | Visit | | E, DO [address] | | | | | | [place], [place] | | | | | | [address] | | | | | | [phone] | | | | | | | | | | | | Elsie Espinosa, | | | | | | MD [address] | | | | | | [address], [place] | | | | | | [place] [address] | | | | | | [phone] | | | | | | | | +--------+---------+ + + + documented as of this encounter Visit Diagnoses Not on filedocumented in this encounter"
--- OUTSIDE RECORDS SUMMARY | ~2019-09-17 | XMS | Encounter Summary ---
Demographics + + + | Address | [address] | | | [place] [address] | + + + | Home Phone | | + + + | Preferred Language | Unknown | + + + | Marital Status | Single | + + + | Sabianism Affiliation | 1013 | + + + | Race | Unknown | + + + | Ethnic Group | Unknown | + + + Author + + + | Author | [facility] | | | and Markana | + + + | Organization | [facility] | | | and Markana | [...] Team Providers + +------+ + | Care Powerhouse Laborer Name | Role | Phone | + +------+ + | Ignacio Little DO | PCP | | + +------+ + Reason for Visit + + + | Reason | Comments | + + + | Medication Refill | | + + + Encounter Details +--------+--------+ + + + | Date | Type | Department | Care Team | Description | +--------+--------+ + + + | 08/24/ | Refill | [facility] [facility] | Ignacio Little | Medication Refill | | 2020 | | [facility] | E, DO [address] | | | | | [facility] | [place], [place] | | | | | [address] [place], | [address] | | | | | [place] [address] | [phone] | | | | | [phone] | | | +--------+--------+ + + + Social History + +-------+ [...] 2019 | Visit | | DO [place] [facility] | | | | | | [place] | | | | | | [address] | | | | | | [phone] | | | | | | | | +--------+---------+ + + + | 11/01/ | Office | Neurology | Ignacio Little | | | 2020 | Visit | | E, DO [address] | | | | | | [place], [place] | | | | | | [address] | | | | | | [phone] | | | | | | | | | | | | Elsie Espinosa, | | | | | | MD [address] | [address] | | | [address], [place] | | | | | | [place] [address] | | | | | | [phone] | | | | | | | | +--------+---------+ + + + documented as of this encounter Visit Diagnoses Not on filedocumented in this encounter"
--- OUTSIDE RECORDS SUMMARY | ~2019-09-17 | XMS | Encounter Summary ---
Demographics + + + | Address | [address] | | | [place] [address] | + + + | Home Phone | | + + + | Preferred Language | Unknown | + + + | Marital Status | Single | + + + | Voodoo Affiliation | 1013 | + + + | Race | Unknown | + + + | Ethnic Group | Unknown | + + + Author + + + | Author | [facility] | | | and Markana | + + + | Organization | [facility] | | | and Markana | [...] Team Providers + +------+ + | Care Traffic Control Specialist Name | Role | Phone | + +------+ + | Ignacio Little DO | PCP | | + +------+ + Reason for Visit + + + | Reason | Comments | + + + | Referral | | + + + Encounter Details +--------+ + + + + | Date | Type | Department | Care Team | Description | +--------+ + + + + | 12/20/ | Telephone | [facility] | Janie Patel | Referral | | 2019 | | [address] | | | | | [place], [place] | | | | | | [address] | | | | | | [phone] | | | +--------+ + + + [...] | | | | | | [place], [place] | | | | | | [address] | | | | | | [phone] | | | | | | | | +--------+---------+ + + + | 11/01/ | Office | Neurology | Ignacio Little | | | 2019 | Visit | | E, DO [address] | | | | | | [place], [place] | | | | | | [address] | | | | | | [phone] | | | | | | | | | | | | Elsie Espinosa, | | | | | | [address] | | | | | | [place] | | | | | | [place] [address] | | | | | | [phone] | | | | | | | | +--------+---------+ + + + documented as of this encounter Visit Diagnoses Not on filedocumented in this encounter"
--- OUTSIDE RECORDS SUMMARY | ~2019-09-17 | XMS | Encounter Summary ---
Demographics + + + | Address | [address] | | | [place] [address] | + + + | Home Phone | | + + + | Preferred Language | Unknown | + + + | Marital Status | Single | + + + | Advent Affiliation | 1013 | + + + | Race | Unknown | + + + | Ethnic Group | Unknown | + + + Author + + + | Author | [facility] | | | and Markana | + + + | Organization | [facility] | | | and Markana | [...] Team Providers + +------+ + | Care Progress Clerk Name | Role | Phone | + +------+ + | Ignacio Little DO | PCP | | + +------+ + Reason for Visit + + + | Reason | Comments | + + + | Medication Related | Talk about trying a different medication | + + + Encounter Details +--------+ + + + + | Date | Type | Department | Care Team | Description | +--------+ + + + + | 04/13/ | Telephone | [place] [facility] | Ignacio Little | Medication Related | | 2018 | | [facility] | E, DO [address] | (Talk about trying a | | | | [facility] [address] | [place] [facility], [place] | different | | | | [place], | [address] | medication) | | | | [place] [address] | [phone] | | | | | [phone] | | | +--------+ + + + [...] Care | Ignacio Little | | | 2020 | Visit | | E, DO [address] | | | | | | [place] | | | | | | [address] | | | | | | [phone] | | | | | | | | +--------+---------+ + + + | 11/01/ | Office | Neurology | Ignacio Little | | | 2019 | Visit | | E, DO [address] | | | | | | [place], [place] | | | | | | [address] | | | | | | [phone] | | | | | | | | | | | | Elsie Espinosa, | | | | | | MD [address] | | | | | | [place] | | | | | | [place] [address] | | | | | | [phone] | | | | | | | | +--------+---------+ + + + documented as of this encounter Visit Diagnoses Not on filedocumented in this encounter"
--- OUTSIDE RECORDS SUMMARY | ~2019-09-17 | XMS | Encounter Summary ---
Demographics + + + | Address | [address] | | | [place] [address] | + + + | Home Phone | | + + + | Preferred Language | Unknown | + + + | Marital Status | Single | + + + | Muslim Affiliation | 1013 | + + + | Race | Unknown | + + + | Ethnic Group | Unknown | + + + Author + + + | Author | [facility] | | | and Markana | + + + | Organization | [facility] | | | and Markana [...] Team Providers + +------+ + | Care Dental Ceramist Name | Role | Phone | + +------+ + | Ignacio Little DO | PCP | | + +------+ + Reason for Referral Self-referral (Routine) +--------+ + + + + + | Status | Reason | Specialty | Diagnoses / | Referred By | Referred To | | | | | Procedures | Contact | Contact | +--------+ + + + + + | Closed | Specialty | Physical | Diagnoses | [facility]abel | [facility] | | Services | Therapy | | Ignacio Burris | HOSPITAL | | | Required | | Cerebrovascu | DO [address] | PHYSICAL | | | | | lar accident | [place] | THERAPY [address] | | | | | (CVA) due | [place], [place] | [place] | | | | | to embolism | [address] | [place], [place] | | | | | of middle | Phone: | [phone] | | | | | cerebral | [phone] | Phone: | | | | | artery, | Fax: | [phone] | | | | | unspecified | [phone] | Fax: | | | | | blood vessel | | [phone] | | | | | laterality | | | | | | | (HCC) | | | +--------+ + + + + + Self-referral (Routine) +--------+ + + + + + | Status | Reason | Specialty | Diagnoses / | Referred By | Referred To | | | | | Procedures | Contact | Contact | +--------+ + + + + + | Closed | Specialty | Occupational | Diagnoses | Anabel, | Provider | | | Services | Therapy | | Ignacio Burris, | Not, In | | | Required | | Cerebrovascu | DO [address] | System | | | | | lar accident | [place] | [place] | | | | | (CVA) due | [place], [place] | Health and | | | | | to embolism | [address] | Service | | | | | of middle | Phone: | | | | | | cerebral | [phone] | | | | | | artery, | Fax: | | | | | | unspecified | [phone] | | | | | | blood vessel | | | | | | | laterality | | | | | | | (HCC) | | | +--------+ + + + + + + + | Scheduling Instructions | + + | At [facility] in [place]. | + + Self-referral (Routine) +--------+ + + + + + | Status | Reason | Specialty | Diagnoses / | Referred By | Referred To | | | | | Procedures | Contact | Contact | +--------+ + + + + + | Closed | Specialty | Speech | Diagnoses | Anabel, | Provider | | | Services | Pathology | | Ignacio E, | Not, In | | | Required | | Cerebrovascu | DO [address] | System | | | | | lar accident | [place] | [place] | | | | | (CVA) due | [place], [place] | Health and | | | | | to embolism | [address] | Service | | | | | of middle | Phone: | | | | | | cerebral | [phone] | | | | | | artery, | Fax: | | | | | | unspecified | [phone] | | | | | | blood vessel | | | | | | | laterality | | | | | | | (HCC) | | | +--------+ + + + + + + + | Scheduling Instructions | + + | At [facility] in [place]. | + + Evaluate & Treat (Routine) +--------+ + + + + + | Status | Reason | Specialty | Diagnoses / | Referred By | Referred To | | | | | Procedures | Contact | Contact | +--------+ + + + + + | Closed | Specialty | Neurology | Diagnoses | Anabel, | Francisca, | | | Services | | Observed | Ignacio Burris, | Elsie Phillips, | | | Required | | sleep apnea | DO [address] | [address] | | | | | [place] | [address], | | | | | | [place], [place] | [place] | | | | | | [address] | [place], [place] | | | | | | Phone: | [phone] Phone: | | | | | | [phone] | [phone] | | | | | | Fax: | Fax: | | | | | | [phone] | [phone] | +--------+ + + + + + Self-referral (Routine) +--------+ + + + + + | Status | Reason | Specialty | Diagnoses / | Referred By | Referred To | | | | | Procedures | Contact | Contact | +--------+ + + + + + | Closed | Specialty | Neurology | Diagnoses | Anabel, | [facility] | | | Services | | | Ignacio Burris, | NEUROLOGY | | | Required | | Cerebrovascu | DO [address] | [address] | | | | | lar accident | [address] [place] | [facility] | | | | | (CVA) due | [place], [place] | [address] | | | | | to embolism | [address] | [place], [place] | | | | | of middle | Phone: | [phone] | | | | | cerebral | [phone] | Phone: | | | | | artery, | Fax: | [phone] | | | | | unspecified | [phone] | Fax: | | | | | blood vessel | | [phone] | | | | | laterality | | | | | | | (HCC) | | | +--------+ + + + + + Reason for Visit + + + | Reason | Comments | + + + | Establish Care | Discuss recent hospital visit, establish care for ongoing | | | treatment. | + + + | Anxiety | Girlfriend and step-mother report high anxiety, please refer to | | | PERLITA-7 | + + + Encounter Details +--------+---------+ + + + | Date | Type | Department | Care Team | Description | +--------+---------+ + + + | 04/12/ | Office | [place] [facility] | Ignacio Little | Cerebrovascular | | 2019 | Visit | [facility] | E, DO [address] | accident (CVA) due | | | | [facility] | [place] | to embolism of | | | | [address] [place], | [address] | middle cerebral | | | | [place] [address] | [phone] | artery, unspecified | | | | [phone] | | blood vessel | | | | | | laterality (HCC) | | | | | | (Primary Dx); | | | | | | CADASIL (cerebral AD | | | | | | arteriopathy w | | | | | | infarcts and | | | | | | leukoencephalopathy) | | | | | | ; Pituitary adenoma | | | | | | (HCC); Observed | | | | | | sleep apnea; Need | | | | | | for influenza | | | | | | vaccination | +--------+---------+ + + + Social History + +-------+ +--------+------+ | Tobacco Use | Types | Packs/Day | Years | Date | | | | | Used | | + +-------+ +--------+------+ | Never Smoker | | | | | + +-------+ +--------+------+ + +---+---+---+ | Smokeless Tobacco: | | | | | Never Used | | | | + +---+---+---+ + + | Tobacco Cessation: Counseling Given: No | + + + + +---------+ + | Alcohol Use [...] + + + | Blood Pressure | 122/80 | 04/12/2019 3:54 PM | | | | | PST | | + + + + + | Pulse | 84 | 04/12/2019 3:54 PM | | | | | PST | | + + + + + | Temperature | 36.5 C (97.7 F) | 04/12/2019 3:54 PM | | | | | PST | | + + + + + | Respiratory Rate | 17 | 04/12/2019 3:54 PM | | | | | PST | | + + + + + | Oxygen Saturation | 96% | 04/12/2019 3:54 PM | | | | | PST | | + + + + + | Inhaled Oxygen | - | - | | | Concentration | | | | + + + + + | Weight | 111.3 kg (245 lb 6.4 | 04/12/2019 3:54 PM | | | | oz) | PST | | + + + + + | Height | 190.5 cm (6' 3") | 04/12/2019 3:54 PM | | | | | PST | | + + + + + | Body Mass Index | 30.67 | 04/12/2019 3:54 PM | | | | | PST | | + + + + + documented in this encounter Progress Notes Alma Lugo CC CMA - 04/12/2019 4:00 PM PSTAfter obtaining consent, per orders of Dr. Ignacio Little, injection of FluZone given by SAMRA Ureña CMA. Site: LEFT Deltoid. Patient tolerated well and ambulated out of clinic with out assistance. SAMRA Ureña CMA Ignacio Hess DO - 04/12/2019 4:00 PM PST Patient ID: Cristino Hickman is a 34 y.o. year old male Chief Complaint: Chief Complaint Patient presents with Establish Care Discuss recent hospital visit, establish care for ongoing treatment. Anxiety Girlfriend and step-mother report high anxiety, please refer to PERLITA-7 Assessment 1. Cerebrovascular accident (CVA) due to embolism of middle cerebral artery, unspecified bl ood vessel laterality (HCC) - Neurology, External - AMB Referral - FLUoxetine (PROZAC) 20 mg capsule; Take 1 capsule by mouth Daily. Dispense: 90 capsule; Refill: 1 - Speech Therapy, External - AMB Referral - Occupational Therapy, External - AMB Referral - [facility] Physical Therapy, External - AMB Referral - atorvaSTATin (LIPITOR) 40 mg tablet; Take 1 tablet by mouth Daily. Dispense: 90 tablet; Refill: 3 - Comprehensive Metabolic Panel; Future - Lipid Panel; Future 2. 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 Pituitary adenoma (HCC) 4. Observed sleep apnea - * [facility] - AMB Referral 5. Need for influenza vaccination - Influenza *PF 3 yrs or >, Quadrivalent PSKT or Vial (Fluzone) [[id number]] Plan: -Referral provided to [facility] neurology today. -Informed patient and family about pituitary growth, and reassured them it will be worked u p in the near future. Reassured them it is common to have a pituitary growth. -Filled out paperwork today. See scanned documents. -Referral provided for Dr. Espinosa in sleep studies. -Referral provided for speech therapy, occupational therapy, and physical therapy at [facility] in [place]. -Initiated fluoxetine 20 mg QD. -Flu shot administered today. -FU PRN. Subjective: HPI: Patient presents to the clinic to establish care. He presents with his girlfriend Soledad diego, and his stepmother. The patient was recently admitted into the hospital on 03/30/19 for an acute encephalopathy . He had an episode of an extreme migraine in 01/2019 accompanied with vomiting. His stepmot her states he has no history of migraines. One month later, he had a head flu with cough, fe daphne, and chills. His girlfriend noticed immediately that he had some memory impairment for t hings that she states "he would never forget", and he also had some difficulty communicating , especially with his workplace. His family noticed that he had symptoms suggestive of aprax ia. His stepmother states he was "zoned out" for the next few days, with intermittent return s to [facility], and he had difficulty performing any normal tasks. He had a CT of his head and neck, which showed: IMPRESSION: 1. Decreased attenuation corresponds to areas of diffusion restriction seen on MRI consistent with subacute ischemia. No new areas identified. 2. No hemorrhagic transformation is demonstrated. 3. No intracranial aneurysm or occlusion. 4. No high-grade stenosis, aneurysm or dissection of the cervical arterial vasculature. After the MRI and the results, he was sent to [facility] for evaluation. They performed an echo cardiogram on 03/31/19 which was normal. They returned home after the results were processed . His girlfriend reports he has motion sickness any time he travels in the car since his CVA. Notes fatigue, observed sleep apnea, snoring and short term forgetfulness. His sleep apnea has never been diagnosed. His stepmother is concerned that the stress and anxiety from his medical condition may be d etrimental. The patient agrees that there is increased stress and anxiety because of the madelaine nts. His girlfriend notes that every 5th day or so he has mood swings between happiness and irritability. She states he has sometimes had outbursts of profanity in strange situations a nd has no filter. Today, he is slowed and inattentive. His father has a history of CADASIL and experienced his first stroke at the age of 28 years . Current Outpatient Medications Medication Sig Dispense Refill aspirin 325 MG EC tablet Take 1 tablet by mouth Daily. 0 atorvaSTATin (LIPITOR) 40 mg tablet Take 1 tablet by mouth Daily. 30 tablet 2 No current facility-administered medications for this visit. Patient Active Problem List Diagnosis embolic CVA History reviewed. No pertinent family history. History reviewed. No pertinent surgical history. Social History Socioeconomic History Marital status: Single Spouse name: Not on file Number of children: Not on file Years of education: Not on file Highest education level: Not on file Occupational History Not on file Social Needs Financial resource strain: Not on file Food insecurity: Worry: Not on file Inability: Not on file Transportation needs: Medical: Not on file Non-medical: Not on file Tobacco Use Smoking status: Never Smoker Smokeless tobacco: Never Used Substance and Sexual Activity Alcohol use: Yes Comment: rarely Drug use: Never Sexual activity: Not on file Lifestyle Physical activity: Days per week: Not on file Minutes per session: Not on file Stress: Not on file Relationships Social connections: Talks on phone: Not on file Gets together: Not on file Attends nondenominational service: Not on file Active member of club or organization: Not on file Attends meetings of clubs or organizations: Not on file Relationship status: Not on file Intimate partner violence: Fear of current or ex partner: Not on file Emotionally abused: Not on file Physically abused: Not on file Forced sexual activity: Not on file Other Topics Concern Not on file Social History Narrative Not on file No Known Allergies Review of Systems Constitutional: Positive for fatigue. Eyes: Negative for visual disturbance. Respiratory: Positive for apnea (at night). Negative for shortness of breath. Cardiovascular: Negative for chest pain and palpitations. Gastrointestinal: Positive for nausea (motion sickness). Neurological: Positive for headaches. Negative for syncope and speech difficulty. Psychiatric/Behavioral: Positive for agitation, behavioral problems (no filter), confusion and decreased concentration. The patient is nervous/anxious. Objective: Vitals: BP 122/80 | Pulse 84 | Temp 36.5 C (97.7 F) (Oral) | Resp 17 | Ht 1.905 m (6' 3") | Wt 111.3 kg (245 lb 6.4 oz) | SpO2 96% | BMI 30.67 kg/m Physical Exam Constitutional: He is oriented to person, place, and time. He appears well-developed and we ll-nourished. HENT: Head: Normocephalic and atraumatic. Right Ear: External ear normal. Left Ear: External ear normal. Nose: Nose normal. Mouth/Throat: Oropharynx is clear and moist. No oropharyngeal exudate. Eyes: Pupils are equal, round, and reactive to light. Conjunctivae and EOM are normal. Neck: Normal range of motion. Neck supple. No thyromegaly present. Cardiovascular: Normal rate, regular rhythm, normal heart sounds and intact distal pulses. Pulmonary/Chest: Effort normal and breath sounds normal. Abdominal: Soft. Bowel sounds are normal. Neurological: He is alert and oriented to person, place, and time. He has normal reflexes. Psychiatric: Judgment and thought content normal. His affect is blunt. His speech is delaye d. He is slowed. He exhibits abnormal recent memory. He is inattentive. This documentation prepared by Harriett Kitchen medical billing and coding instructor. All aspects of this chart review ed for accuracy and content by Ignacio Little DO at the date and time of service. Electronically signed by: Dr. Ignacio Little DO 04/12/2019 4:49 PM documented in this encounter Plan of Treatment +--------+---------+ + + + | Date | Type | Specialty | Care Team | Description | +--------+---------+ + + + | 09/27/ | Office | Primary Care | Ignacio Little | | | 2019 | Visit | | E, DO ST | | | | | | [place], [place] | | | | | | [address] | | | | | | [phone] | | | | | | | | +--------+---------+ + + + | 11/01/ | Office | Neurology | Ignacio Little | | | 2019 | Visit | | E, DO [address] | | | | | | [place], [place] | | | | | | [address] | | | | | | [phone] | | | | | | | | | | | | Elsie Espinosa, | | | | | | MD [address], [place] | | | | | | [place] [address] | | | | | | [phone] | | | | | | | | +--------+---------+ + + + + +------+--------+ + + | Name | Type | Priori | Associated Diagnoses | Order Schedule | | | | ty | | | + +------+--------+ + + | Comprehensive | Lab | Routin | Cerebrovascular | Expected: 06/12/2019 | | Metabolic Panel | | e | accident (CVA) due | (Approximate), | | | | | to embolism of | Expires: 04/12/2020 | | | | | middle cerebral | | | | | | artery, unspecified | | | | | | blood vessel | | | | | | laterality (HCC) | | + +------+--------+ + + | Lipid Panel | Lab | Routin | Cerebrovascular | Expected: 06/12/2019 | | | | e | accident (CVA) due | (Approximate), | | | | | to embolism of | Expires: 04/12/2020 | | | | | middle cerebral | | | | | | artery, unspecified | | | | | | blood vessel | | | | | | laterality (HCC) | | + +------+--------+ + + + + +--------+ + + | Name | Type | Priori | Associated Diagnoses | Order Schedule | | | | ty | | | + + +--------+ + + | Neurology, External | Outpatient | Routin | Cerebrovascular | Ordered: 04/12/2019 | | - AMB Referral | Referral | e | accident (CVA) due | | | | | | to embolism of | | | | | | middle cerebral | | | | | | artery, unspecified | | | | | | blood vessel | | | | | | laterality (HCC) | | + + +--------+ + + | * [facility] | Outpatient | Routin | Observed sleep | Ordered: 04/12/2019 | | [facility] Sleep Studies - | Referral | e | apnea | | | AMB Referral | | | | | + + +--------+ + + | Speech Therapy, | Outpatient | Routin | Cerebrovascular | Ordered: 04/12/2019 | | External - AMB | Referral | e | accident (CVA) due | | | Referral | | | to embolism of | | | | | | middle cerebral | | | | | | artery, unspecified | | | | | | blood vessel | | | | | | laterality (HCC) | | + + +--------+ + + | Occupational | Outpatient | Routin | Cerebrovascular | Ordered: 04/12/2019 | | Therapy, External - | Referral | e | accident (CVA) due | | | AMB Referral | | | to embolism of | | | | | | middle cerebral | | | | | | artery, unspecified | | | | | | blood vessel | | | | | | laterality (HCC) | | + + +--------+ + + | [facility] | Outpatient | Routin | Cerebrovascular | Ordered: 04/12/2019 | | Hospital Physical | Referral | e | accident (CVA) due | | | Therapy, External - | | | to embolism of | | | AMB Referral | | | middle cerebral | | | | | | artery, unspecified | | | | | | blood vessel | | | | | | laterality (HCC) | | + + +--------+ + + documented as of this encounter Visit Diagnoses + + | Diagnosis | + + | Cerebrovascular accident (CVA) due to embolism of middle cerebral artery, unspecified | | blood vessel laterality (HCC) - Primary | + + | 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
--- OUTSIDE RECORDS SUMMARY | ~2019-09-17 | XMS | Encounter Summary ---
Demographics + + + | Address | [address] | | | [place] [address] | + + + | Home Phone | | + + + | Preferred Language | Unknown | + + + | Marital Status | Single | + + + | Faith Affiliation | 1013 | + + + | Race | Unknown | + + + | Ethnic Group | Unknown | + + + Author + + + | Author | [facility] | | | and Markana | + + + | Organization | [facility] | | | and [...] Team Providers + +------+ + | Care Toy Maker Name | Role | Phone | + +------+ + | Ignacio Little DO | PCP | | + +------+ + Reason for Visit + + + | Reason | Comments | + + + | Paperwork | Disability paperwork | + + + Encounter Details +--------+---------+ + + + | Date | Type | Department | Care Team | Description | +--------+---------+ + + + | 05/25/ | Office | [place] [facility] | Ignacio Little | CADASIL (cerebral AD | | 2020 | Visit | [facility] | E, DO [address] | arteriopathy w | | | | [facility] [address] | [place], [place] | infarcts and | | | [address] [place] [facility], | [address] | leukoencephalopathy) | | | | [place] [address] | [phone] | (Primary Dx); | | | | [phone] | | Ischemic stroke | | | | | | (HCC) | +--------+---------+ + + + Social History [...] + + + | Blood Pressure | 120/76 | 05/25/2019 4:08 PM | RIGHT arm, large | | | | PST | cuff | + + + + + | Pulse | 79 | 05/25/2019 4:08 PM | | | | | PST | | + + + + + | Temperature | - | - | | + + + + + | Respiratory Rate | 19 | 05/25/2019 4:08 PM | | | | | PST | | + + + + + | Oxygen Saturation | 96% | 05/25/2019 4:08 PM | | | | | PST | | + + + + + | Inhaled Oxygen | - | - | | | Concentration | | | | + + + + + | Weight | 115.2 kg (254 lb) | 05/25/2019 4:08 PM | | | | | PST | | + + + + + | Height | 190.5 cm (6' 3") | 05/25/2019 4:08 PM | | | | | PST | | + + + + + | Body Mass Index | 31.75 | 05/25/2019 4:08 PM | | | | | PST | | + + + + + documented in this encounter Progress Notes Ignacio Little DO - 05/25/2019 4:00 PM PST Patient ID: Cristino Hickman is a 34 y.o. year old male Chief Complaint: Chief Complaint Patient presents with Paperwork Disability paperwork Assessment 1. 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 Ischemic stroke (HCC) Plan: -Filled out disability paperwork. See scanned documents. Subjective: HPI: Patient presents to the clinic for disability paperwork. He presents with raudel Hodge s girlfriend. The patient would like to fill out some disability paperwork today. He went to [facility] to eval uate his recent stroke-like symptoms. The report described high white matter infarcts seen o n his MRI. The specialist mentioned that she did not see typical changes on the MRI for CADA NANO and suspects that this event was a "CADASIL coma", which is an acute encephalopathy that can resolve after days to weeks, but can also result in . She has placed a referral to neurogenetics, as his father had a history of CADASIL. Ayesha states that the patient has improved a great deal from last visit, but notes that sometimes the patient mixes up words. The patient dismisses her concerns, stating that he ju st gets mixed up sometimes. Current Outpatient Medications Medication Sig Dispense Refill aspirin 325 MG EC tablet Take 1 tablet by mouth Daily. 0 atorvaSTATin (LIPITOR) 40 mg tablet Take 1 tablet by mouth Daily. 90 tablet 3 buPROPion (WELLBUTRIN XL) 150 mg 24 hr tablet Take 1 tablet by mouth every morning. 30 tablet 3 ibuprofen (ADVIL,MOTRIN) 800 MG tablet Take 800 mg by mouth as needed. No current facility-administered medications for this visit. Patient Active Problem List Diagnosis embolic CVA No family history on file. No past surgical history on file. Social History Socioeconomic History Marital status: Single [...] file Gets together: Not on file Attends episcopal service: Not on file Active member of [...] file No Known Allergies Review of Systems Psychiatric/Behavioral: Positive for confusion. Objective: Vitals: BP 120/76 Comment: RIGHT arm, large cuff | Pulse 79 | Resp 19 | Ht 1.905 m (6' 3") | Wt 115.2 kg (254 lb) | SpO2 96% | BMI 31.75 kg/m Physical Exam Constitutional: He is oriented [...] and time. He has normal reflexes. Psychiatric: He has a normal mood and affect. His behavior is normal. Judgment and thought content normal. He exhibits abnormal recent memory. This documentation prepared by Harriett Kitchen medical scientific officer. All aspects of this chart review ed for accuracy and content by Ignacio Little DO at the date and time of service. Electronically signed by: Dr. 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
--- OUTSIDE RECORDS SUMMARY | ~2019-09-17 | XMS | Encounter Summary ---
Demographics + + + | Address | [address] | | | [place] [address] | + + + | Home Phone | | + + + | Preferred Language | Unknown | + + + | Marital Status | Single | + + + | Presybeterian Affiliation | 1013 | + + + | Race | Unknown | + + + | Ethnic Group | Unknown | + + + Author + + + | Author | [facility] | | | and Markana | + + + | Organization | [facility]erg[facility] With [facility] | | | and Markana [...] Team Providers + +------+ + | Care Labor Service Representative Name | Role | Phone | + [...] Medication Refill | | 2020 | | [facility] | E, DO [address] | | | | | MEDICAL CLIN[facility] [address] | [place], [place] | | | | [address] [place], | [address] | | | | | [place] [address] | [phone] | | | | | [phone] | | | +--------+--------+ + + + [...] 2019 | Visit | | DO [place] [facility] | | | | | | [place] | | | | | | [address] | | | | | | [phone] | | | | | | | | +--------+---------+ + + + | 11/01/ | Office | Neurology | Ignacio Little | | | 2020 | Visit | | E, DO [address] | | | | | | [place], [place] | | | | | | [address] | | | | | | [phone] | | | | | | | | | | | | Elsie Espinosa, | | | | | | MD [address] | | | | | | [address], [place] | | | | | | [place] [address] | | | | | | [phone] | | | | | | | | +--------+---------+ + + + documented as of this encounter Visit Diagnoses Not on filedocumented in this encounter"
--- OUTSIDE RECORDS SUMMARY | ~2019-09-17 | XMS | Encounter Summary ---
Demographics + + + | Address | [address] | | | [place] [address] | + + + | Home Phone | | + + + | Preferred Language | Unknown | + + + | Marital Status | Single | + + + | Samaritan Affiliation | 1013 | + + + | Race | Unknown | + + + | Ethnic Group | Unknown | + + + Author + + + | Author | [facility] | | | and Markana | + + + | Organization | [facility] | | | and [...] Team Providers + +------+ + | Care Seed Analyst Name | Role | Phone | + +------+ + | Ignacio Little DO | PCP | | + +------+ + Reason for Visit + + + | Reason | Comments | + + + | Abnormal Lab | | + + + Encounter Details +--------+ + + + + | Date | Type | Department | Care Team | Description | +--------+ + + + + | 04/08/ | Telephone | [facility] | Janie Patel | Abnormal Lab | | 2019 | | [address] | [place] | | | | | [place], [place] | | | | | | [address] | | | | | | [phone] | | | +--------+ + + + [...] Visit | | DO [place] [address] | | | | | | [place] | | | | | | [address] | | | | | | [phone] | | | | | | | | +--------+---------+ + + + | 11/01/ | Office | Neurology | Ignacio Little | | | 2019 | Visit | | E, DO [address] | | | | | | [place] | | | | | | [address] | | | | | | [phone] | | | | | | | | | | | | Francisca, Elsie J, | | | | | | [address] | | | | | | [place] | | | | | | [place] [address] | | | | | | [phone] | | | | | | | | +--------+---------+ + + + documented as of this encounter Visit Diagnoses Not on filedocumented in this encounter"
--- OUTSIDE RECORDS SUMMARY | ~2019-09-17 | XMS | Encounter Summary ---
Demographics + + + | Address | [address] | | | [place] [address] | + + + | Home Phone | | + + + | Preferred Language | Unknown | + + + | Marital Status | Single | + + + | Rastafarian Affiliation | NON | + + + | Race | White | + + + | Ethnic Group | Not or | + + + Author + + + | Author | [facility] | + + + | Organization | [facility] | + + + | Address | Unknown | + + + | Phone | Unavailable | + + + Support + + +---------+ + | Name | Relationship | Address | Phone | + + +---------+ + | Ayesha Hankins | ECON | Unknown | | + + +---------+ + Care Team Providers + +------+ + | Care Lozenge Dough Mixer Name | Role | Phone | + +------+ + | Ignacio Little DO | PCP | | + +------+ + Reason for Referral Consultation (Routine) + +--------+ + + + + | Status | Reason | Specialty | Diagnoses / | Referred By | Referred To | | | | | Procedures | Contact | Contact | + +--------+ + + + + | New Request | | Medical | Diagnoses | Lutsep, | Mge | | | | Genetics | History of | MD Pablo | Genetics Sandra | | | | | stroke with | [address] | [address] | | | | residual | [address] | [address] | | | | | deficit | [place], [place] | [place] [facility] | | | | | Procedures | [address] | Health and | | | | | CONSULT TO | Phone: | Healing, | | | | | MEDICAL | [phone] | [address] | | | | | GENETICS | Fax: | [place], [place] | | | | | | [phone] | [address] | | | | | | | Phone: | | | | | | | [phone] | | | | | | | Fax: | | | | | | | [phone] | + +--------+ + + + + Reason for Visit Intake Referral (Routine) + +--------+ + + + + | Status | Reason | Specialty | Diagnoses / | Referred By | Referred To | | | | | Procedures | Contact | Contact | + +--------+ + + + + | Authorized | | Neurology | Diagnoses | Koko, | Sandra Stroke | | | | | Acute CVA | Jessica Bloom MD | [address] | | | | | (cerebrovasc | [address] | [address] | | | | | ular | [address] | [address] | | | | | accident) | [place] | [place] | | | | | ([facility]) see | [phone] | Research | | | | | page 2 | Phone: | | | | | | Procedures | [phone] | floor | | | | | [place] NEW | Fax: | [place], [place] | | | | | PATIENT | [phone] | [address] | | | | | LEVEL V [place] | | Phone: | | | | | EST PATIENT | | [phone] | | | | | LEVEL V | | Fax: | | | | | | | [phone] | + +--------+ + + + + Encounter Details +--------+---------+ + + + | Date | Type | Department | Care Team | Description | +--------+---------+ + + + | 05/14/ | Office | [facility] | Pbalo Noriega MD | History of stroke | | 2020 | Visit | [facility] [place] | [address] | with residual | | | | [facility] Center | [facility] [place] | deficit (Primary | | | | [address] | [address] | Dx); Migraine | | | | [facility] | [phone] | without aura and | | | | [facility] | | without status | | | | floor [place], [place] | | migrainosus, not | | | | [address] | | intractable; Anxiety | | | | [phone] | | | +--------+---------+ + + + Social History [...] + + + | Blood Pressure | 113/78 | 05/14/2019 9:14 AM | | | | | PST | | + + + + + | Pulse | 60 | 05/14/2019 9:14 AM | | | | | PST | | + + + + + | Temperature | - | - | | + + + + + | Respiratory Rate | - | - | | + + + + + | Oxygen Saturation | 98% | 05/14/2019 9:14 AM | | | | | PST | | + + + + + | Inhaled Oxygen | - | - | | | Concentration | | | | + + + + + | Weight | 117 kg (258 lb) | 05/14/2019 9:14 AM | | | | | PST | | + + + + + | Height | 188 cm (6' 2") | 05/14/2019 9:14 AM | | | | | PST | | + + + + + | Body Mass Index | 33.13 | 05/14/2019 9:14 AM | | | | | PST | | + + + + + documented in this encounter Patient Instructions Patient Instructions Pbalo Noriega MD - 05/14/2019 9:00 AM PSTYou can take aspirin, 81 mg per day, instead of the 325 mg per day. I am not certain that you have CADASIL and have placed the genetics consult. However, it i s possible that the event you had was due to something called "CADASIL coma". Electronicall y signed by Pablo Noriega MD at 05/14/2019 10:06 AM PST documented in this encounter Progress Notes Pablo Noriega MD - 05/14/2019 9:00 AM PST I had the pleasure of seeing Cristino Hickman, a 34 y.o. Not or White ma le at the [facility] on 05/14/2019. The patient was seen for strokes for which he was admitted on 2018 and a father diagnosed with CADASIL. Present and Past History Cristino says that he had a first headache three months ago. One day they were cleaning the ho use and that night he developed a very bad headache with vomiting. He wasn't sensitive to l ight but was lying down on a couch. The headache lasted a couple hours and went away after he vomited. In January he had been taking Test-300 steroids for about a month. He did this prior to getting back to exercising. He had symptoms of low libido. He was taking it abou t once a week and had stopped it about 1 1/2 months before his stroke event. The event happened in the second week of March. He had influenza B and was very sick. He was in [place] working at the [employer]. They had firearms training it was very cold. He was outside for eight hours. By the time he came home, his girlfriend says he looked bad w ith his flu and had a fever. He slept the entire weekend. He had oddly taken every pillowc ase off the pillows and said he just couldn't get up. Cristino has a memory of his parents look ing for him. He had slept through three days of work. Someone from work also called him an d he said he was getting up but then slept again. Seven days later, the following Friday, he started acting more confused. His girlfriend asked him about going to the movies and he co uldn't remember that he'd been asked. He left his dogs outside, which he usually didn't do. They got some food but he fed it to the dogs. They went to bed but the following morning his parents came over early. He was supposed to go to work but he was disoriented. They br ought him to the ED and he was given fluids. He was allowed to go home but he was brought b [facility] to the hospital in the evening and he had a CT and MRI. Because they saw strokes, he wa s transferred to [facility]. During the transfer he reported a headache. Cristino has vague memori es of this time and says it feels more like a dream. About a week later he had somewhat sim ilar symptoms but the doctors didn't have anything else to offer. They went home and he has slowly got better. After about 4-5 weeks he has gotten nearly back to normal. As he was h ealing he was doing inappropriate things like yelling curse words. He has memory gaps from March. He also mixes up words, saying hot when he means cold and saying the wrong dog's name. 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 His girl friend says that the job created a lot of anxiety to the point he has needed to lay down to calm down before going to work. Since his girlfriend has known him over the last four years his moods have gone up and down. His girlfriend goes to the bedroom to lie down with him a nd calms him down. Cristino has been attending OT and speech therapy, and playing different board games. He is cl eared not to work until September 12. He notes that he can get carsick now. He likes to play [employer] games. He has never had any facial droop, weakness, numbness, double vision or other f ocal symptoms. He does misspell words on occasion when he is texting now, which never used to happen. However, this is also improving. He is working on mental math, which he finds h emi to do in front of others. He was started on Welbutrin after his hospitalization and his anxiety is doing a bit better. Risk Factors: He does not have hypertension and his pressures ran low in the hospital, such as 95 systoli c. He does not have hyperlipidemia or diabetes. He has never been a smoker and only very r rocky drinks alcohol -- such as once every six months. He does not use recreational drugs. He takes the dogs on long walks every day now, although not right after the event. They ea t fish at least once a week and a lot of salad but think they could eat more vegetables. He has a sleep study scheduled for episodes of stopping breathing at night. Allergies: Patient has no known allergies. Current Outpatient Medications Medication Sig aspirin EC (ECOTRIN) 325 mg oral tablet,delayed release (DR/EC) Take 325 mg by mouth on ce daily. atorvastatin 40 mg oral tablet Take 40 mg by mouth once daily. buPROPion XL 150 mg oral tablet extended release 24 hr Take 150 mg by mouth once daily. No current facility-administered medications for this visit. No past medical history on file. Family History: Cristino says that his father was diagnosed with CADASIL about 20 years ago with a genetic test . He says that his father just turned 60 and is still doing OK. He has had about six strok es and is on disability. One led to double vision. His father's brother had hepatitis C an d at the age of 46. His father's mother in a car accident but had preceding issue s, although they don't know exactly what these were. His father's father was older when he and was also a smoker. Cristino has two older brothers and a younger half brother and a si ster. They have been healthy and haven't mentioned bad headaches. Cristino has a 2-year-old da ughter who is generally healthy. Physical Examination BP 113/78 | Pulse 60 | Ht 1.88 m (6' 2") | Wt 117 kg (258 lb) | SpO2 98% | BMI 33.13 k g/m | BSA 2.47 m The patient was alert and able to provide a clear, fluent history. He was oriented to 2/2 items. After an initial error learning the sequence, he could perform the Luria 3-hand test without difficulty. Extraocular muscle movements and visual blanton were full. Strength wa s intact in the face and there was no drift of the upper or lower extremities. Wjgfnr-bv-ij se testing was normal bilaterally. Double simultaneous stimulation was intact to touch. Ca sual gait was unremarkable. Scales: NIHSS = 0 mRS = 2 (not working) Diagnostic Tests: MRI 03-30-19, [facility] in [place]; I have reviewed the images -- there are deep, extensive high white matter changes bilaterally. There is a possible hyperintensity i n the right anterior temporal lobe but no external capsule changes. No GRE or SWI was done. CTA head and neck: Echo at [facility] -- performed on 03-31-19 and reportedly normal Tele -- normal sinus rhythm LDL 77, A1C 5.8, normal coags including: factor VIII, AT III, protein C and S, APC resistan ce, ACLA, betaglycoproteins, prothrombin gene mutation. Lupus inhibitor indeterminate. UDS was noted to be unremarkable at [place]. Assessment & Plan: Cristino is a pleasant man whose father has CADASIL. He had one headache in the fall that was associated with nausea (likely due to migraine) and then an event in which he was disoriente d, slept a lot and for which he has little memory that occurred in March. It has taken h im about four weeks to recover although isn't 100% at his baseline yet. He also has a histo ry of anxiety and mood swings. His MRI showed high white matter infarcts. Other than one possible spot in the right anter ior temporal lobe, I don't see typical changes on the MRI for CADASIL but he is also young y et. Strokes in CADASIL usually affect just a single territory of a penetrating artery. How ever, the event may represent a rare manifestation of CADASIL, a "CADASIL coma". This is an acute encephalopathy that can resolve after days to weeks but can also result in . Th e cause is not known. To better determine whether Cristino may have CADASIL, I have placed a re ferral to [facility] since they can also assist with pre-authorizations for the genetic t est. While the infarcts are in a somewhat watershed distribution, he does not have any larg e vessel stenosis or occlusion. They would be less likely to be due to cardiac emboli. He had a full hypercoagulation panel that was unremarkable. Recommendations: *Can change the aspirin dose to 81 mg daily. *It is reasonable to continue the atorvastatin and he was already at goal (LDL<100) *His blood pressure goal is <130 systolic and he is at goal *I have recommended that he exercise at least 30 minutes on most days; he can do this in in crements *They will try to add some vegetables to their diet *I have placed a neuro-genetics referral I will see Cristino in follow up in one year or sooner should new concerns arise (they live in [place] but have family in [place]). Stroke Type: Ischemic Stroke Location: Hemisperic Etiology: Undetermined I spent 60 minutes with the patient. Greater than 50% of the time was spent counseling the patient regarding stroke prevention. documented in this enco unter Plan of Treatment +--------+---------+ + + + | Date | Type | Specialty | Care Team | Description | +--------+---------+ + + + | 12/02/ | Office | Medical Genetics | Bakari, | | | 2019 | Visit | | Lane Gutierrez MD [address] | | | | | [address] [facility] | | | | | | [place], [place] | | | | | | [address] | | | | | | [phone] | | | | | | | | +--------+---------+ + + + documented as of this encounter Visit Diagnoses + + | Diagnosis | + + | History of stroke with residual deficit - Primary | + + | Migraine without aura and without status migrainosus, not intractable Migraine | | without aura, without mention of intractable migraine without mention of status | | migrainosus | + + | Anxiety Anxiety state, unspecified | + + documented in this encounter
--- OUTSIDE RECORDS SUMMARY | ~2019-09-17 | XMS | Encounter Summary ---
Demographics + + + | Address | [address] | | | [place] [address] | + + + | Home Phone | | + + + | Preferred Language | Unknown | + + + | Marital Status | Single | + + + | Oriental Orthodox Affiliation | 1013 | + + + | Race | Unknown | + + + | Ethnic Group | Unknown | + + + Author + + + | Author | [facility] | | | and Markana | + + + | Organization | [facility] | | | and Markana [...] Team Providers + +------+ + | Care Cna Gna Name | Role | Phone | + +------+ + | Ignacio Ltitle DO | PCP | | + +------+ [...] | | | | [address]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 He went to [facility] to eval uate his recent stroke-like symptoms. [...] file Gets together: Not on file Attends gnosticist service: Not on file Active member of [...] memory. This documentation prepared by Harriett Kitchen bacteriologist medical. All aspects of this chart review ed [...] [place] | | | | | | [address] | | | | | | [phone] | | | | | | | | +--------+---------+ + + + | 11/01/ | Office | Neurology | Ignacio Little | | | 2019 | Visit | | [facility] [address] | | | | | | [place], [place] | | | | | | [address] | | | | | | [phone] | | | | | | | | | | | | Elsie Espinosa, | | | | | | [address] | | | | | | [place] | | | | | | [place] [address] | | | | | | [phone] | | | | | | | [...]
--- OUTSIDE RECORDS SUMMARY | ~2019-09-17 | XMS | Encounter Summary ---
Demographics + + + | Address | [address] | | | [place] [address] | + + + | Home Phone | | + + + | Preferred Language | Unknown | + + + | Marital Status | Single | + + + | Orthodox Affiliation | 1013 | + + + | Race | Unknown | + + + | Ethnic Group | Unknown | + + + Author + + + | Author | [facility] | | | and Markana | + + + | Organization | [facility] | | | and Markana | [...] Team Providers + +------+ + | Care Field Consultant Name | Role | Phone | + [...] | Occupational | Diagnoses | Koko, | [facility] | | | Services | Therapy | | MD Jessica | [address] | | | Required | | Cerebrovascu | [address] | | | | | lar accident | [address]VD | [place] | | | | | (CVA) due | [place] | [address] | | | | | to embolism | [address] | Phone: | | | | | of middle | Phone: | [phone] | | | | | cerebral | [phone] | Fax: | | | | | artery, | Fax: | [phone] | | | | | unspecified | [phone] | | | | | | blood [...] | | | | (CVA) due | [facility] [place] | [address] | | | | | to embolism | [address] | Phone: | | | | | of middle | Phone: | [phone] | | | | | cerebral | [phone] | Fax: | | | | | artery, | Fax: | [phone] | | | | | unspecified | [phone] | | | | | | blood vessel | | | | | | | laterality | | | | | | | ([facility]) | | | +--------+ + + + [...] | | | | to embolism | [address] | | | | | | of [facility] | Phone: | | | | | | cerebral | [phone] | | | | | | artery, | Fax: | | | | | | unspecified | [phone] | | | | | | blood [...] | | | | to embolism | [address] | | | | | | of [facility] | Phone: | | | | | | cerebral | [phone] | | | | | | artery, | Fax: | | | | | | unspecified | [phone] | | | | | | blood [...] + + | 03/30/ | Hospital | [facility] | Adilia Powers MD | Cerebrovascular | | 2019 - | Encounter | [facility] | [address] | accident (CVA) due | | | | CARE FLOOR [address] | [place] [address] | to embolism of | | 04/01/ | [address] | [phone] | middle cerebral | | 2019 | | [place], [place] | | artery, unspecified | | | | [address] | Jessica Sutherland MD | blood vessel | | | | [phone] | [address] | laterality (HCC) | | | | | [place] [address] | (Primary Dx); Acute | | | | | [phone] | ischemic stroke | | | | [...] this note might be different from zenobia neumann original. Patient: Cristino Hickman : 1985 Date of [...] of 46 who was transferred here from [facility] for altered mental status. Patient was living with his girlfriend and parents in [facility] when they noted that he was altered. He had difficulty with com munication and memory impairment. He also had symptoms suggestive of apraxia he was seen i n the emergency department and was diagnosed with influenza B and was discharged home his sister checked up on him and since there was no improvement of his symptoms she decided to t parker him to [facility] yesterday. Patient denies any headache, blurry vision, [...] anything since the last 1 month. At [facility] his vitals were stable.Labs were unremarkable. UDS [...] for recs. Hypercoag w/u pending. referrral to [facility] done. Needs g enetic testing, notch3 gene testing,etc. Needs pcp, but family said they will get their own pcp setup. I offered CM to setup [facility] pcp, but they declined. [facility] neuro referral al so done. [place] [...] through Care Everywhere.Aspirin, ASA or al tablets (Kazakh)Atorvastatin tablets (Kazakh)documented in this encounter Medications at Time of [...] + + + +---------+ + + | ibuprofen | Take 800 mg by mouth | | 0 | 01/14/20 | | | (SCARLET MATHIAS) 800 | as needed. | | | 19 | | | MG tablet | | | | | | + + + +---------+ + + | atorvaSTATin | Take 1 tablet by | 30 | 2 | 04/02/20 | | | (LIPITOR) 40 mg | mouth Daily. | tablet | | 19 | 9 | | tablet | | | | | | + + + +---------+ + + documented as of this encounter Progress Notes Janie Garcia RN - 04/01/2019 1:58 PM PSTPt alert and oriented x4. VSS. Neuro checks done. 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 Patient was living with his girlfriend and parents in [facility] when they noted that he was altered. [...] symptoms she decided to take him to [facility] yesterday. Patient denies any headache, blurry visi [...] anything since the last 1 month. At [facility] his vitals were stable. Labs were unremarkable. [...] artery distribution. Patient has been transferred for [facility] neurological evaluation. SUBJECTIVE Feels fine. Denies any [...] cervical arterial vasculature. Signed by: John Paul Emanuel, Rufus Sign Date/ Time: 03/30/2019 4:24 PM PROBLEM [...] in this encou nter Plan of Treatment +--------+---------+ + + + | Date | Type | Specialty | Care Team | Description | +--------+---------+ + + + | 09/27/ | Office | Primary Care | Ignacio Little | | | 2019 | Visit | | E, DO [address] | | | | | | [place], [place] | | | | | | [address] | | | | | | [phone] | | | | | | | | +--------+---------+ + + + | 11/01/ | Office | Neurology | Ignacio Little | | | 2019 | Visit | | E, DO [address] | | | | | | [place], [place] | | | | | | [address] | | | | | | [phone] | | | | | | | | | | | | Elsie Espinosa, | | | | | | [address] | | | | | | [place] | | | | | | [place] [address] | | | | | | [phone] | | | | | | | | +--------+---------+ + + + + + +--------+ + + [...] | | | | | | laterality ([facility]) | | + + +--------+ + + | AMB REFERRAL TO | Outpatient | Routin | Cerebrovascular | Ordered: 04/01/2019 | | [facility] | Referral | e | accident (CVA) due | | | THERAPY | | | to embolism of | | | | | | middle cerebral | | | | | | artery, unspecified | | | | | | blood vessel | | | | | | laterality ([facility]) | | + + +--------+ + + | Ambulatory Referral | Outpatient | Routin | Cerebrovascular | Ordered: 04/01/2019 | | to [facility] Physical | Referral | e | [...] Cerebrovascular | Ordered: 04/01/2019 | | to [facility] | Referral | e | accident (CVA) [...] | + +--------+ + + + | LIPID PANEL | Routin | 03/31/2019 | | Results [...] | + +--------+ + + + | HYPERCOAG CONSULT, | Routin | 03/30/2019 | | Results for this | | EXTENDED PANEL | e | 2:21 PM | | procedure are in the [...] | | | + +---------+ + + Lipid Panel (03/31/2019 5:12 AM PST) + + + + + + | Component | Value | Ref Range | Performed | Pathologist | | | | | At | Signature | + + + + + + | Cholesterol | 152 | <200 mg/dL | [facility] | | | | | | LABORATORY | | + + + + + + | Triglycerid | 228 (H) | <150 mg/dL | [facility] | | | es | | | LABORATORY | | + + + + + + | HDL | 29 (L) | >40 mg/dL | [facility] | | | | | | LABORATORY | | + + + + + + | LDL, | 77Comment: Testing | <100 mg/dL | [facility] | | | Calculated | performed at [facility], [address] | | LABORATORY | | | | [address], | | | | | | [place] [address] | | | | + + + + + + + + | Specimen | + + | Blood | + + + + + + + | Performing | Address | City/State/Zipcode | Phone Number | | Organization | | | | + + + + + | [facility] | [address] | [place] [address] | [phone] | + + + + + Hemoglobin A1C (03/31/2019 5:12 AM PST) + + + + + + | Component | Value | Ref Range | Performed | Pathologist | | | | | At | Signature | + + + + + + | Hemoglobin | 5.8Comment: HbA1c method | 4.0 - 6.0 % | [facility] | | | A1c | is certified by NGSP | | LABORATORY | | | | [...] | 120Comment: Estimated | <154 mg/dL | [facility] | | | Average | Average Glucose | | LABORATORY | | | Glucose | calculated from | | | | | | hemoglobin A1c by use of | | | | | | the ADArecommended | | | | | | formula.Testing | | | | | | performed at [facility], [address] | | | | | | [address] [facility], | | | | | | [place] [address] | | | | + + + + + + + + | Specimen | + + | Blood | + + + + + + + | Performing | Address | City/State/Zipcode | Phone Number | | Organization | | | | + + + + + | [facility] | [address] | [place] [address] | [phone] | + + + + + Comprehensive [...] (H) | 10 - 65 U/L | [facility] | | | | | | LABORATORY | | + + + + + + | Estimated | >60Comment: GFR <60: | >60 | [facility] | | | GFR | CHRONIC KIDNEY [...] | | | | | performed at [facility], [address] | | | | | | [facility], | | | | | | [place] [address] | | | | + + + + + + + + | Specimen | + + | Blood | + + + + + + + | Performing | Address | City/State/Zipcode | Phone Number | | Organization | | | | + + + + + | [facility] | [address] | [place] [address] | [phone] | + + + + + CBC [...] | | | Absolute | performed at [facility], [address] | [address] | LABORATORY | | | | [address], | | | | | | [place] [address] | | | | + + + + + + + + | Specimen | + + | Blood | + + + + + + + | Performing | Address | City/State/Zipcode | Phone Number | | Organization | | | | + + + + + | [facility] | [address] | [place] [address] | [phone] | + + + + + CT [...] | | | + +---------+ + + Hypercoag Consult, Extended Panel (03/30/2019 2:21 PM PST) + + + + + + | Component | Value | Ref Range | Performed | Pathologist | | | | | At | Signature | + + + + + + | HOMOCYSTEIN | 9.1Comment: Homocysteine | umol/L | [facility] | | | E, TOTAL | levels in patients >60 | | LABORATORY | | | (REF) | years increase | | | | | | 1-2umol/L.Reference | | | | | | Range:5.0 - 15.0 | | | | | |5.0 - 15.0 | | | | | | | | | | + + + + + + | Factor VIII | 193 (H)Comment: FVIII | % | [facility] | | | activity | activity can increase in | | LABORATORY | | | | a variety of | | | | | | clinicalsituations | | | | | | including normal | | | | | | , in samples | | | | | | drawn frompatients | | | | | | (particularly children) | | | | | | who are visibly stressed | | | | | | atthe time of | | | | | | phlebotomy, as acute | | | | | | phase reactants, or | | | | | | inresponse to certain | | | | | | drug therapies such as | | | | | | DDAVP.Persistently | | | | | | elevated FVIII activity | | | | | | is a risk factor | | | | | | forvenous thrombosis as | | | | | | well as recurrence of | | | | | | venousthrombosis. Risk | | | | | | is graded and increases | | | | | | with the degree | | | | | | ofelevation. Although | | | | | | elevated FVIII activity | | | | | | has beenidentified to | | | | | | cluster within families, | | | | | | a genetic basis forthe | | | | | | elevation has not yet | | | | | | been elucidated (Gab J | | | | | | Haematol.2012; | | | | | | [phone]).Reference | | | | | | Range:57 - 163 | | | | + + + + + + | Antithrombi | 107Comment: Direct oral | % | [facility] | | | n III | anticoagulants such as | | LABORATORY | | | Activity | rivaroxaban, apixaban | | | | | | andedoxaban will lead to | | | | | | spuriously elevated | | | | | | antithrombinactivity | | | | | | levels possibly masking | | | | | | a deficiency.Reference | | | | | | Range:7 months and | | | | | | older: 75 - 135 | | | | + + + + + + | Protein C | 121Comment: Reference | % | [facility] | | | activity | Range:17 years and | | LABORATORY | | | | older: 73 - 180 | | | | | |17 years and older: 73 - 180 | | | | | | | | | | + + + + + + | Protein S | 101Comment: Reference | % | [facility] | | | Antigen, | Range:7 months and | | LABORATORY | | | Free | older: 57 - 157This test | | | | | | was developed and its | | | | | | performance | | | | | | characteristicsdetermine | | | | | | d by [employer]. It has not | | | | | | been cleared or | | | | | | approvedby the Food and | | | | | | Drug Administration. | | | | + + + + + + | aPTT, | 25.4Comment: This test | SEC | [facility] | | | Patient | has not been validated | | LABORATORY | | | | for | | | | | | monitoringunfractionated | | | | | | heparin therapy. | | | | | | aPTT-based | | | | | | therapeuticranges for | | | | | | unfractionated heparin | | | | | | therapy have not | | | | | | beenestablished. | | | | | | Consider ordering | | | | | | Heparin | | | | | | anti-Xa(unfractionated). | | | | | | Reference Range:18 years | | | | | | and older: 22.9 - 30.2 | | | | + + + + + + | aPTT, | NIY | sec | [facility] | | | Patient/Con | Comment: | | LABORATORY | | | trol Mix | Testing Not Indicated | | | | | | Not indicated | | | | | | | | | | + + + + + + | APTT 1:1 | NIY | sec | [facility] | | | Saline | Comment: | | LABORATORY | | | | Testing Not Indicated | | | | | | Not indicated | | | | | | | | | | + + + + + + | LUPUS | (See Below)Comment: | | [facility] | | | ANTICOAG | Results are interpreted | | LABORATORY | | | INTERP | as indeterminate for the | | | | | | presenceof a lupus | | | | | | anticoagulant (LA). Only | | | | | | one | | | | | | phospholipiddependent | | | | | | assay showed evidence of | | | | | | confirmation, with | | | | | | theDRVVT ratio falling | | | | | | just above the reference | | | | | | interval. Thistest may | | | | | | be falsely positive if | | | | | | the sample is | | | | | | collectedwhile the | | | | | | patient is on warfarin, | | | | | | direct Xa inhibitor, | | | | | | ordirect thrombin | | | | | | inhibitor therapy. Only | | | | | | persistent LA | | | | | | meetlaboratory | | | | | | diagnostic criteria for | | | | | | antiphospholipidsyndrome | | | | | | . To confirm or refute | | | | | | the presence of an LA | | | | | | and todetermine | | | | | | persistence, repeat | | | | | | testing in 12 or more | | | | | | weeksis recommended. | | | | | | Ideally, repeat testing | | | | | | should be performedin | | | | | | the absence of | | | | | | anticoagulant | | | | | | therapy.All HAO-based | | | | | | antiphospholipid | | | | | | antibodies evaluated | | | | | | arenormal. Please | | | | | | contact [facility] | | | | | | Coagulation if | | | | | | furtherclarification is | | | | | | needed. | | | | + + + + + + | Activated | 2.8Comment: The APCR | ratio | [facility] | | | Protein C | result may be falsely | | LABORATORY | | | Resistance | increased (masking | | | | | | anabnormal, low APCR | | | | | | result) in patients on | | | | | | direct Xainhibitor | | | | | | (e.g., rivaroxaban, | | | | | | apixaban, edoxaban) or | | | | | | adirect thrombin | | | | | | inhibitor (e.g., | | | | | | dabigatran) | | | | | | anticoagulanttherapy due | | | | | | to assay interference | | | | | | by these drugs.Reference | | | | | | Range:2.2 - 3.5 | | | | + + + + + + | dRVVT | 48.6 (H) | sec | [facility] | | | | Comment: | | LABORATORY | | | | Reference Range: | | | | | | <= 47.0 | | | | | | | | | | + + + + + + | Dilute | 31.9 | sec | [facility] | | | Jordan | | | LABORATORY | | | Viper Venom | | | | | | Time | | | | | | Confirmatio | | | | | | n | | | | | + + + + + + | dRVVT, Mix | 1.4 (H)Comment: Testing | ratio | [facility] | | | ratio | while the patient is on | | LABORATORY | | | | anticoagulant | | | | | | therapy,including | | | | | | warfarin, dabigatran, or | | | | | | a direct Xa inhibitor | | | | | | maycause a false | | | | | | positive | | | | | | result.Reference | | | | | | Range:0.8 - 1.2 | | | | + + + + + + | Hex Phosph | 0Comment: This value is | sec | [facility] | | | Test | NEGATIVE.This is a | | LABORATORY | | | | qualitative assay and is | | | | | | therefore reported | | | | | | aspositive for lupus | | | | | | anticoagulant or | | | | | | negative. | | | | | | Thequantitative value | | | | | | is provided as an aid in | | | | | | diagnosis.Reference | | | | | | Range:0 - 11 | | | | + + + + + + | Cardiolipin | <10Comment: Reference | GPL | [facility] | | | AB IgG | Range:Negative: | | LABORATORY | | | | <15Indeterminate: 15 - | | | | | | 20Low to medium | | | | | | positive: >20 - 80High | | | | | | positive: >80 | | | | | |High positive: >80 | | | | | | | | | | + + + + + + | Cardiolipin | 11Comment: Reference | MPL | [facility] | | | AB IgM | Range:Negative: | | LABORATORY | | | | <13Indeterminate: 13 - | | | | | | 20Low to medium | | | | | | positive: >20 - 80High | | | | | | positive: >80 | | | | | |High positive: >80 | | | | | | | | | | + + + + + + | BETA 2 | <10Comment: The | SGU | [facility] | | | GLYCO 1 IGG | reference interval | | LABORATORY | | | | reflects a 3SD or 99th | | | | | | percentileinterval, | | | | | | which is thought to | | | | | | represent a | | | | | | potentiallyclinically | | | | | | significant result in | | | | | | accordance with | | | | | | theInternational | | | | | | Consensus Statement on | | | | | | the | | | | | | classificationcriteria | | | | | | for definitive | | | | | | antiphospholipid | | | | | | syndrome (APS). JThromb | | | | | | [id number]:[id number].Refer | | | | | | ence Range:Negative: <21 | | | | | | | | | | + + + + + + | BETA 2 | <10Comment: The | SMU | [facility] | | | GLYCO 1 IGM | reference interval | | LABORATORY | | | | reflects a 3SD or 99th | | | | | | percentileinterval, | | | | | | which is thought to | | | | | | represent a | | | | | | potentiallyclinically | | | | | | significant result in | | | | | | accordance with | | | | | | theInternational | | | | | | Consensus Statement on | | | | | | the | | | | | | classificationcriteria | | | | | | for definitive | | | | | | antiphospholipid | | | | | | syndrome (APS). JThromb | | | | | | [id number]:295-306.Refer | | | | | | ence Range:Negative: <33 | | | | | | | | | | + + + + + + | Beta-2 | <10Comment: The | RODRIGO | [facility] | | | Glyco 1 IgA | reference interval | | LABORATORY | | | | reflects a 3SD or 99th | | | | | | percentileinterval.Refer | | | | | | ence Range:Negative: <26 | | | | | | | | | | | | | | | | + + + + + + | Factor II, | (See Below)Comment: G-G | | [facility] | | | DNA | (Normal-Normal)No | | LABORATORY | | | Analysis | prothrombin [id number] | | | | | | mutation present. | | | | | | | | | | + + + + + + | Interpretat | (See Below)Comment: | | [facility] | | | ion | While the patient does | | LABORATORY | | | | not possess this risk | | | | | | factor, otherthrombotic | | | | | | risk factors may be | | | | | | detected through | | | | | | systematicclinical | | | | | | laboratory analysis. | | | | + + + + + + | Methodology | (See Below)Comment: | | [facility] | | | : | Patient DNA was | | LABORATORY | | | | evaluated for the factor | | | | | | II gene mutationat | | | | | | nucleotide [id number] using | | | | | | PCR amplification | | | | | | followed byrestriction | | | | | | analysis and gel | | | | | | electrophoresis. | | | | + + + + + + | Comments: | (See Below)Comment: | | [facility] | | | | Simultaneous Risks: If a | | LABORATORY | | | | patient possesses two | | | | | | or morecongenital or | | | | | | acquired thrombophilic | | | | | | risk factors, the riskof | | | | | | thrombosis may rise to | | | | | | more than the sum of the | | | | | | riskratios for the | | | | | | individual risk factors. | | | | | | For instance, | | | | | | acombination of the | | | | | | prothrombin [id number] | | | | | | mutation and thefactor V | | | | | | Leiden mutation may | | | | | | confer an increase | | | | | | inthrombotic risk in the | | | | | | range of 20-30 | | | | | | fold.Recommendations for | | | | | | Genetic Counseling: The | | | | | | prothrombingene | | | | | | mutation is an inherited | | | | | | characteristic. If | | | | | | themutation is present, | | | | | | we recommend that the | | | | | | patient andtheir family | | | | | | consider genetic | | | | | | counseling to | | | | | | obtainadditional | | | | | | information on | | | | | | inheritance and to | | | | | | identify otherfamily | | | | | | members at risk.Testing | | | | | | Characteristics: Genetic | | | | | | testing | | | | | | providesexceptionally | | | | | | high sensitivity and | | | | | | specificity. | | | | | | Inaccurateresults are | | | | | | limited to rare | | | | | | polymorphisms in primer | | | | | | bindingsites and to | | | | | | misidentification of | | | | | | specimens by | | | | | | collectorsor laboratory | | | | | | personnel. This assay | | | | | | detects only | | | | | | theprothrombin [id number] | | | | | | mutation and does not | | | | | | detect othergenetic | | | | | | abnormalities.This test | | | | | | was developed and its | | | | | | performance | | | | | | characteristicsdetermine | | | | | | d by [facility]. It has not | | | | | | been cleared or | | | | | | approvedby the Food and | | | | | | Drug | | | | | | Administration.Reference | | | | | | s: Berry K, et al. Br J | | | | | | of Haem. | | | | | | 1996;98:907.Kori HOGUE, | | | | | | et al. Br J of Haem. | | | | | | 1996;98:353. | | | | | | Hansel-LaFreniere and | | | | | | McGlennen Mol.Diagn. | | | | | | 2000;6(3):201.Emmerich | | | | | | J, et al. Thromb | | | | | | Haemost. | | | | | | 2000;86:809-16.Margaglio | | | | | | ne M, et al. Thromb | | | | | | Haemost. | | | | | | 1998;82:1583.Testing | | | | | | performed by [facility] | | | | | | [facility],[address] | | | | [address] | | | | | | [address],[place] | | | | | | [phone] | | | | + + + + + + + + | Specimen | + + | Blood | + + + + + + + | Performing | Address | City/State/Zipcode | Phone Number | | Organization | | | | + + + + + | [facility] | [address] | [place] [address] | [phone] | + + + + + documented in this encounter Visit [...] | | | | | dose on Fri03/30/19 at 1345 | | AM PST | [...] ONCE | | | PRN, Other, Starting 03/30/19 | | | at 1654, For 1 [...] PST | | | | | Starting 03/30/19 at 1533, | | | | | | | For 1 dose, Cat Scanner | | | | | | + +-------+ +---------+---+---+ +---+---+ | | | +---+---+ documented in this encounter
--- OUTSIDE RECORDS SUMMARY | ~2019-09-17 | XMS | Clinical Summary ---
Demographics + + + | Address | [address] | | | [place] [address] | + + + | Home Phone | | + + + | Preferred Language | Unknown | + + + | Marital Status | Single | + + + | Latter Day Affiliation | NON | + + + | Race | White | + + + | Ethnic Group | Not or | + + + Author + + + | Author | [facility] | + + + | Organization | [facility] | + + + | Address | Unknown | + + + | Phone | Unavailable | + + + Support + + +---------+ + | Name | Relationship | Address | Phone | + + +---------+ + | Ayesha Hankins | ECON | Unknown | | + + +---------+ + Care Team Providers + +------+ + | Care Cheese Packer Name | Role | Phone | + +------+ + | Ignacio Little DO | PCP | | + +------+ + Source Comments [facility] fully live on both [facility] and [facility] Allergies No Known Allergies Medications + + + +---------+------+------+-------+ | Medication | Sig | Dispensed | Refills | Star | End | Statu | | | | | | t | Date | s | | | | | | Date | | | + + + +---------+------+------+-------+ | aspirin EC | Take 325 mg by mouth | | 0 | 12/2 | | Activ | | (ECOTRIN) 325 mg | once daily. | | | 0/20 | | e | | oral tablet,delayed | | | | 19 | | | | release (DR/EC) | | | | | | | + + + +---------+------+------+-------+ | atorvastatin 40 mg | Take 40 mg by mouth | | 0 | 12/3 | | Activ | | oral tablet | once daily. | | | 020 | | e | | | | | | 19 | | | + + + +---------+------+------+-------+ | buPROPion XL 150 | Take 150 mg by mouth | | 0 | 12/3 | | Activ | | mg oral tablet | once daily. | | | 05/03 | | e | | extended release 24 | | | | 19 | | | | hr | | | | | | | + + + +---------+------+------+-------+ Active Problems Not on file Encounters +--------+ + + + + | Date | Type | Specialty | Care Team | Description | +--------+ + + + + | 07/26/ | Telephone | Medical Genetics | Charlene Gomez MS | | | 2020 | | | CGC | | +--------+ + + + + from Last 3 Months Social History + +-------+ +--------+------+ | Tobacco [...] | + + Last Filed Vital Signs + + + [...] | | + + + + + Plan of Treatment +--------+---------+ + + + | Date | Type | Specialty | Care Team | Description | +--------+---------+ + + + | 12/02/ | Office | Medical Genetics | Bakari, | | | 2019 | Visit | | [address] Gut[address]rez MD [address] | | | | | | [address] | | | | | | [place], [place] | | | | | | [address] | | | | | | [phone] | | | | | | | | +--------+---------+ + + + + + + + + | Health Maintenance | Due Date | Last Done | Comments | + + + + + | Influenza (Flu) | Completed | 04/12/2019, 01/18/2011 | | | vaccination | | | | + + + + + | Pneumococcal | Aged Out | | No longer eligible | | vaccination | | | based on patient's | | | | | age to complete this | | | | | topic | + + + + + Results Not on filefrom Last 3 Months Insurance +-------+--------+ +--------+ + +------+ | Payer | Benefi | Subscriber | Effect | Phone | Address | Type | | | t Plan | ID | jesus manuel | | | | | | / | | Dates | | | | | | Group | | | | | | +-------+--------+ +--------+ + +------+ | MODA | MODA | [phone] | Effect | [phone] | [address] | HMO | | | [place] | | jesus manuel | [phone] | [phone] | | | | Y | | for | | [place], | | | | [place] | | all | | [place] [address] | | | | | | dates | | | | +-------+--------+ +--------+ + +------+ + +--------+ +--------+ + + | Guarantor Name | Accoun | Relation to | Date | Phone | Billing Address | | | t Type | Patient | of | | | | | | | | | | + +--------+ +--------+ + + | Cristino Hickman | Person | Self | [birth year] | [address] | | | derrick/Dorian | | 1985 | [phone] | [place] [address] | | | jed | | | 1 (Home) | | + +--------+ +--------+ + +
--- OUTSIDE RECORDS SUMMARY | ~2019-09-17 | XMS | Encounter Summary ---
Demographics + + + | Address | [address] | | | [place] [address] | + + + | Home Phone | | + + + | Preferred Language | Unknown | + + + | Marital Status | Single | + + + | Taoist Affiliation | 1013 | + + + | Race | Unknown | + + + | Ethnic Group | Unknown | + + + Author + + + | Author | [facility] | | | and Markana | + + + | Organization | [facility] | | | and Markana [...] Team Providers + +------+ + | Care Specialty Person Name | Role | Phone | + [...] | | [facility] [address] | [place] [facility], [place] | different | | | | [place], | [address] | medication) | | | | [place] [address] | [phone] | | | | | [phone] | | | +--------+ + + + [...] | Visit | | E, DO [address] | | | | | | [place] | | | | | | [address] | | | | | | [phone] | | | | | | | | +--------+---------+ + + + | 11/01/ | Office | Neurology | Ignacio Little | | | 2019 | Visit | | E, DO [address] | | | | | | [place], [place] | | | | | | [address] | | | | | | [phone] | | | | | | | | | | | | Elsie Espinosa, | | | | | | MD [address] | | | | | | [place] | | | | | | [place] [address] | | | | | | [phone] | | | | | | | | +--------+---------+ + + + documented as of this encounter Visit Diagnoses Not on filedocumented in this encounter"
--- OUTSIDE RECORDS SUMMARY | ~2019-09-17 | XMS | Encounter Summary ---
Demographics + + + | Address | [address] | | | [place] [address] | + + + | Home Phone | | + + + | Preferred Language | Unknown | + + + | Marital Status | Single | + + + | Samaritan Affiliation | NON | + + + | Race | White | + + + | Ethnic Group | Not or | + + + Author + + + | Organization | Unknown | + + + | Address | Unknown | + + + | Phone | Unavailable | + + + Support + + +---------+ + | Name | Relationship | Address | Phone | + + +---------+ + | Ayesha Hankins | ECON | Unknown | | + + +---------+ + Care Team Providers + +------+ + | Care Collection Manager Name | Role | Phone | + +------+ + | Ignacio Little DO | PCP | | + +------+ + Encounter Details +--------+--------+ + + + | Date | Type | Department | Care Team | Description | +--------+--------+ + + + | 05/14/ | Travel | | | | | 2020 | | | | | +--------+--------+ + + + [...] | Visit | | [address] Gut[address]rez MD [address] | | | | | | [address] | | | | | | [place], [place] | | | | | | [address] | | | | | | [phone] | | | | | | | | +--------+---------+ + + + documented as of this encounter Visit Diagnoses Not on filedocumented in this encounter"
--- OUTSIDE RECORDS SUMMARY | ~2019-09-17 | XMS | Encounter Summary ---
Demographics + + + | Address | [address] | | | [place] [address] | + + + | Home Phone | | + + + | Preferred Language | Unknown | + + + | Marital Status | Single | + + + | Samaritan Affiliation | 1013 | + + + | Race | Unknown | + + + | Ethnic Group | Unknown | + + + Author + + + | Author | [facility] | | | and Markana | + + + | Organization | [facility] | | | and Markana | [...] Team Providers + +------+ + | Care Physician Relations Representative Name | Role | Phone | + +------+ + | No, Physician | PCP | Unavailable | + +------+ + Reason for Visit + + + | Reason | Comments | + + + | Paperwork | FMLA | + + + Encounter Details +--------+ + + + + | Date | Type | Department | Care Team | Description | +--------+ + + + + | 04/01/ | Telephone | [facility] | Pratik Garvin, RN | Paperwork (FMLA) | | 2019 | | [address] | | | | | | [place], [place] | | | | | | [address] | | | | | | [phone] | | | +--------+ + + + [...] | | 2019 | Visit | | [place], DO [address] | | | | | | [place], [place] | | | | | | [address] | | | | | | [phone] | | | | | | | | +--------+---------+ + + + | 11/01/ | Office | Neurology | Ignacio Little | | | 2019 | Visit | | E, DO [address] | | | | | | [place], [place] | | | | | | [address] | | | | | | [phone] | | | | | | | | | | | | Elsie Espinosa, | | | | | | MD [address] | | | | | | [address], [place] | | | | | | [place], [place] [address] | | | | | | [phone] | | | | | | | | +--------+---------+ + + + documented as of this encounter Visit Diagnoses Not on filedocumented in this encounter"
--- OUTSIDE RECORDS SUMMARY | ~2019-09-17 | XMS | Encounter Summary ---
Demographics + + + | Address | [address] | | | [place] [address] | + + + | Home Phone | | + + + | Preferred Language | Unknown | + + + | Marital Status | Single | + + + | Shinto Affiliation | 1013 | + + + | Race | Unknown | + + + | Ethnic Group | Unknown | + + + Author + + + | Author | [facility] | | | and Markana | + + + | Organization | [facility] | | | and [...] Team Providers + +------+ + | Care Heel Shaper Name | Role | Phone | + +------+ + | Ignacio Little DO | PCP | | + +------+ + Reason for Visit + + + | Reason | Comments | + + + | Paperwork | | + + + Encounter Details +--------+ + + + + | Date | Type | Department | Care Team | Description | +--------+ + + + + | 05/24/ | Telephone | [place] [facility] | AnabelIgnacio | Paperwork | | 2020 | | [facility] | E, DO [address] | | | | | [facility] [address] | [place], [place] | | | | | [address] [place], | [address] | | | | | [place] [address] | [phone] | | | | | [phone] | | | +--------+ + + + [...] 09/27/ | Office | Primary Care | Ingacio Little | | | 2019 | Visit | | DO Dayton [address] | | | | | | [place] | | | | | | [address] | | | | | | [phone] | | | | | | | | +--------+---------+ + + + | 11/01/ | Office | Neurology | Ignacio Little | | | 2019 | Visit | | E, DO [address] | | | | | | [place] | | | | | | [address] | | | | | | [phone] | | | | | | | | | | | | Elsie Espinosa, | | | | | | [address] | | | | | | [place], [place] | | | | | | [place] [address] | | | | | | [phone] | | | | | | | | +--------+---------+ + + + documented as of this encounter Visit Diagnoses Not on filedocumented in this encounter"
--- OUTSIDE RECORDS SUMMARY | ~2019-09-17 | XMS | Encounter Summary ---
Demographics + + + | Address | [address] | | | [place] [address] | + + + | Home Phone [...] Author + + + | Author | [facility] | + + + | Organization | [facility] | + + + | Address | Unknown | + + + | Phone | Unavailable | + + + Support + + +---------+ + | Name | Relationship | Address | Phone | + + +---------+ + | Ayesha Hankins | ECON | Unknown | | + + +---------+ + Care Team Providers + +------+ + | Care Portable Irrigation Operator Name | Role | Phone | + +------+ + | Ignacio Little DO | PCP | | + +------+ + Encounter Details +--------+ + + + + | Date | Type | Department | Care Team | Description | +--------+ + + + + | 07/26/ | Telephone | General Adult | Charlene Gomez, | | | 2019 | | [facility]etics at [facility] | [facility] [address] | | | | | [place] [address] | [facility] | | | | | [address] | [facility] [place] | | | | | Physicians [place], | [address] | | | | | 3rd floor | [phone] | | | | | [place], [place] | | | | | | [address] | | | | | | [phone] | | | +--------+ + + + [...] | Visit | | Lane Gutierrez MD [address] | | | | | | [address] [facility] | | | | | | [address] [place], [place] | | | | | | [address] | | | | | | [phone] | | | | | | | | +--------+---------+ + + + documented as of this encounter Visit Diagnoses Not on filedocumented in this encounter"
--- OUTSIDE RECORDS SUMMARY | ~2019-09-17 | XMS | Encounter Summary ---
Demographics + + + | Address | [address] | | | [place] [address] | + + + | Home Phone | | + + + | Preferred Language | Unknown | + + + | Marital Status | Single | + + + | Anabaptism Affiliation | 1013 | + + + | Race | Unknown | + + + | Ethnic Group | Unknown | + + + Author + + + | Author | [facility] | | | and Markana | + + + | Organization | [facility] | | | and Markana [...] Team Providers + +------+ + | Care Ground Water Pump Installer Name | Role | Phone | + +------+ + | Ignacio Little DO | PCP | | + +------+ + Reason for Visit + + + | Reason | Comments | + + + | Ear Problem | | + + + Encounter Details +--------+ + + + + | Date | Type | Department | Care Team | Description | +--------+ + + + + | 05/06/ | Telephone | [place] [facility] | Ignacio Little | Ear Problem | | 2019 | | [facility] | E, DO [address] | | | | | [facility] [address] | [place], [place] | | | | | [address] [place], | [address] | | | | | [place] [address] | [phone] | | | | | [phone] | | | +--------+ + + + [...] [place] | | | | | | [address] | | | | | | [phone] | | | | | | | | +--------+---------+ + + + | 11/01/ | Office | Neurology | Ignacio Little | | | 2019 | Visit | | E, DO [address] | | | | | | [place] | | | | | | [address] | | | | | | [phone] | | | | | | | | | | | | Elsie Espinosa, | | | | | | [address] | | | | | | [place] | | | | | | [place] [address] | | | | | | [phone] | | | | | | | | +--------+---------+ + + + documented as of this encounter Visit Diagnoses Not on filedocumented in this encounter"
--- OUTSIDE RECORDS SUMMARY | ~2019-09-17 | XMS | Encounter Summary ---
Demographics + + + | Address | [address] | | | [place] [address] | + + + | Home Phone [...] + | Author | [facility] | | | and Markana | + + + | Organization | [facility] | | | and Markana [...] Team Providers + +------+ + | Care Furniture Servicer Name | Role | Phone | + +------+ + | No, Physician | PCP | Unavailable | + +------+ + Reason for Visit + + + | Reason | Comments | + + + | Letter for | FMLA STD | | School/Work | | + + + Encounter Details +--------+ + + + + | Date | Type | Department | Care Team | Description | +--------+ + + + + | 03/31/ | Telephone | [facility] | Юлия Yeh | Letter for | | 2019 | | [address] | School/Work ([place] | | | | [place], [place] | | STD) | | | | [address] | | | | | | [phone] | | | +--------+ + + + [...] [place] | | | | | | [address] | | | | | | [phone] | | | | | | | | +--------+---------+ + + + | 11/01/ | Office | Neurology | Ignacio Little | | | 2019 | Visit | | E, DO [address] | | | | | | [place] | | | | | | [address] | | | | | | [phone] | | | | | | | | | | | | Elsie Espinosa, | | | | | | [address] | | | | | | [place] | | | | | | [place] [address] | | | | | | [phone] | | | | | | | | +--------+---------+ + + + documented as of this encounter Visit Diagnoses Not on filedocumented in this encounter"
--- OUTSIDE RECORDS SUMMARY | ~2019-09-17 | XMS | Encounter Summary ---
Demographics + + + | Address | [address] | | | [place] [address] | + + + | Home Phone | | + + + | Preferred Language | Unknown | + + + | Marital Status | Single | + + + | Quaker Affiliation | NON | + + + [...] Team Providers + +------+ + | Care Bottle Label Inspector Name | Role | Phone | + [...] | for Health and | [address] [place], | | | | | Healing [address] | [place] [address] | | | | | [facility] | | | | | | [facility], | | | | | | [address] | | | | | | [place], [place] | | | | | | [address] | | | | | | [phone] | | | +--------+ + + + [...] | Visit | | Lane Gutierrez MD [address] | | | | | | [address] | | | | | | [place] | | | | | | [address] | | | | | | [phone] | | | | | | | | +--------+---------+ + + + documented as of this encounter Visit Diagnoses Not on filedocumented in this encounter"
--- OUTSIDE RECORDS SUMMARY | ~2019-09-17 | XMS | Clinical Summary ---
Demographics + + + | Address | [address] | | | [place] [address] | + + + | Home Phone | | + + + | Preferred Language | Unknown | + + + | Marital Status | Single | + + + | Bahai Affiliation | 1013 | + + + | Race | Unknown | + + + | Ethnic Group | Unknown | + + + Author + + + | Author | [facility] | | | and Markana | + + + | Organization | [facility] | | | and Markana | [...] Team Providers + +------+ + | Care Hot Mill Shearer Name | Role | Phone | + +------+ + | Ignacio Little DO | PCP | | + +------+ + Allergies No Known Allergies Medications + + + +---------+------+------+-------+ | Medication | Sig | Dispensed | Refills | Star | End | Statu | | | | | | t | Date | s | | | | | | Date | | | + + + +---------+------+------+-------+ | aspirin 325 MG EC | Take 1 tablet by | | 0 | 12/2 | | Activ | | tablet | mouth Daily. | | | 0/20 | | e | | | | | | 19 | | | + + + +---------+------+------+-------+ | atorvaSTATin | Take 1 tablet by | 90 | 3 | 12/3 | | Activ | | (LIPITOR) 40 mg | mouth Daily. 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 | | | 2/20 | | e | | MG tablet | | | | 19 | | | + + + +---------+------+------+-------+ | buPROPion | TAKE ONE TABLET BY | 90 | 3 | 05/1 | | Activ | | (WELLBUTRIN XL) 150 | MOUTH EVERY MORNING | tablet | | 3/20 | | e | | mg 24 hr tablet | | | | 20 | | | + + + +---------+------+------+-------+ | buPROPion | Take 1 tablet by | 30 | 3 | 12 | 05 | Disco | | (WELLBUTRIN XL) 150 | mouth every morning. 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) | | | | | | (Primary Dx) | +--------+ + + + + | 07/13/ | Telephone | Primary Care | Ignacio Little | Letter | | 2019 | | | E, DO | | +--------+ + + + + | 07/05/ | Telephone | Primary Care | Ignacio Little | Other | | 2019 | | | E, DO | | +--------+ + + + + from Last 3 Months Immunizations + + + + | Name | Administration Dates | Next Due | + + + + | DTAP, UNSPECIFIED | 11/26/1988, 11/28/1987, 07/28/1984, | | | FORMULATION | 1983 | | + + + + | INFLUENZA PF | 04/12/2019 | | | QUAD(PED/ADOL/ADULT) | | | | ,PSKT or VIAL | | | + + + + | INFLUENZA TRIV | 01/18/2011 | | | W/PRES(PED/ADOL/ADUL | | | | T),MULTIDOSE | | | + + + + | MMR, 2 DOSE | 06/30/1984 | | | (PED/ADULT) | | | + + + + | POLIO, UNSPECIFIED | 11/26/1988, 11/28/1987, 06/30/1984, | | | FORMULATION | 1983 | | + + + + Family History + + +------+ + | Medical History | Relation | Name | Comments | + + +------+ + | Diabetes | Father | | | + + +------+ + | Stroke | Father | | | + + +------+ + | Diabetes | Mother | | | + + +------+ + + +------+--------+ + | Relation | Name | Status | Comments | + +------+--------+ + | Father | | | | + +------+--------+ + | Mother | | | | + +------+--------+ + Social History + +-------+ +--------+------+ | [...] + + + | Blood Pressure | 128/80 | 07/22/2019 9:40 AM | Left arm large cuff | | | | PDT | | + + + + + | Pulse | 76 | 07/22/2019 9:40 AM | | | | | PDT | | + + + + + | Temperature | 36.8 C (98.2 F) | 07/22/2019 9:40 AM | | | | | PDT | | + + + + + | Respiratory Rate | 24 | 07/22/2019 9:40 AM | | | | | PDT | | + + + + + | Oxygen Saturation | 96% | 07/22/2019 9:40 AM | | | | | PDT | | + + + + + | Inhaled Oxygen | - | - | | | Concentration | | | | + + + + + | Weight | 112.9 kg (249 lb) | 07/22/2019 9:40 AM | | | | | PDT | | + + + + + | Height | 191 cm (6' 3.2") | 07/22/2019 9:40 AM | | | | | PDT | | + + + + + | Body Mass Index | 30.96 | 07/22/2019 9:40 AM | | | | | PDT | | + + + + + [...] [place] | | | | | | [address] | | | | | | [phone] | | | | | | | | +--------+---------+ + + + | 11/01/ | Office | Neurology | Ignacio Little | | | 2019 | Visit | | E, [address] | | | | | | [place], [place] | | | | | | [address] | | | | | | [phone] | | | | | | | | | | | | Elsie Espinosa, | | | | | | MD [address] | | | | | | [place] | | | | | | [place] [address] | | | | | | [phone] | | | | | | | | +--------+---------+ + + + + + + + + | Health Maintenance | Due Date | Last Done | Comments | + + + + + | Vaccine: | | 11/26/1988, 11/28/1987, | | | Dtap/Tdap/Td (5 - | 4 | 07/28/1984, Additional history | | | Tdap) | | exists | | + + + + + | Vaccine: Influenza | Completed | 04/12/2019, 01/18/2011 | | + + + + + [...] + +------+ | MODA | MODA | [id number] | 04/14/19 | [phone] | [address] | PPO | | | ENDEAV | | 19-Pre | 9 | [id number] | | | | [place] | | sent | | [place], | | | | [place] | | | | [place] [address] | | | | PPO | | | | | | +-------+--------+ +--------+ + +------+ | MODA | MODA | [id number] | 04/14/19 | [phone] | [address] | PPO | | | PEBB | | 19-Pre | 9 | [id number] | | | | [place] | | sent | | [place], | | | | [place] PPO | | | | [place] [address] | | +-------+--------+ +--------+ + +------+ + +--------+ +--------+ + + | Guarantor Name | Accoun | Relation to | Date | Phone | Billing Address | | | t Type | Patient | of | | | | | | | | | | + +--------+ +--------+ + + | Cristino Hickman | Person | Self | [birth year] | | [address] | | | al/Fam | | 1984 | [phone] | [place] [address] | | | jed | | | 1 (Home) | | + +--------+ +--------+ + + | Cristino Hickman | Person | Self [birth year] | | [address] | | | al/Fam | | 1984 | [phone] | [place] [address] | | | jed | | | 1 (Home) | | + +--------+ +--------+ + + Advance Directives + + + + + | Type | Date Recorded | Patient | Explanation | | | | Train Attendant | | + + + + + | Power of | | | | | Linen Worker | | | | + + + + + | Advance | 03/30/2019 | | | | Directive | 3:09 PM | | | + + + + + + + + + + | Code Status | Date | Date | Comments | | | Activated | Inactivated | | + + + + + | Full Code | 03/30/2019 | 04/01/2019 | | | | 1:16 PM | 4:20 PM | | + + + + +
--- OUTSIDE RECORDS SUMMARY | ~2019-09-17 | XMS | Encounter Summary ---
Demographics + + + | Address | [address] | | | [place] [address] | + + + | Home Phone | | + + + | Preferred Language | Unknown | + + + | Marital Status | Single | + + + | Sabianism Affiliation | 1013 | + + + | Race | Unknown | + + + | Ethnic Group | Unknown | + + + Author + + + | Author | [facility] | | | and Markana | + + + | Organization | [facility] | | | and Markana [...] Team Providers + +------+ + | Care Architectural Engineering Teacher Name | Role | Phone | + +------+ + PCP | Unavailable | + +------+ + Encounter Details +--------+ + + + + | Date | Type | Department | Care Team | Description | +--------+ + + + + | 08/11/ | Hospital | [facility] | | | | 1996 | Encounter | MED CTR GENERIC OP | | | | | | CONV DEPT [address] | | | | | | [place], | | | | | | [place] [address] | | | | | | [phone] | | | +--------+ + + + [...] [place] | | | | | | [address] | | | | | | [phone] | | | | | | | | +--------+---------+ + + + | 11/01/ | Office | Neurology | Ignacio Little | | | 2019 | Visit | | E, DO [address] | | | | | | [place], [place] | | | | | | [address] | | | | | | [phone] | | | | | | | | | | | | Elsie Espinosa, | | | | | | [address] | | | | | | [address], [place] | | | | | | [place] [address] | | | | | | [phone] | | | | | | | | +--------+---------+ + + + documented as of this encounter Visit Diagnoses Not on filedocumented in this encounter"
--- OUTSIDE RECORDS SUMMARY | ~2019-09-17 | XMS | Encounter Summary ---
Demographics + + + | Address | [address] | | | [place] [address] | + + + | Home Phone | | + + + | Preferred Language | Unknown | + + + | Marital Status | Single | + + + | Mormonism Affiliation | 1013 | + + + | Race | Unknown | + + + | Ethnic Group | Unknown | + + + Author + + + | Author | [facility] | | | and Markana | + + + | Organization | [facility] | | | and Markana [...] Team Providers + +------+ + | Care Supervisor Fleshing Name | Role | Phone | + [...] + + | 04/02/ | Telephone | [facility] | Janie Patel | Disability Form | | 2019 | | [address] | T, RN | | | | | [place] | | | | | | [address] | | | | | | [phone] | | | +--------+ + + + [...] [place] | | | | | | [address] | | | | | | [phone] | | | | | | | | +--------+---------+ + + + | 11/01/ | Office | Neurology | Ignacio Little | | | 2019 | Visit | | E, DO [address] | | | | | | [place] | | | | | | [address] | | | | | | [phone] | | | | | | | | | | | | Elsie Espinosa, | | | | | | [address] | | | | | | [place] | | | | | | [place] [address] | | | | | | [phone] | | | | | | | | +--------+---------+ + + + documented as of this encounter Visit Diagnoses Not on filedocumented in this encounter"
--- OUTSIDE RECORDS SUMMARY | ~2019-09-17 | XMS | Encounter Summary ---
Demographics + + + | Address | [address] | | | [place] [address] | + + + | Home Phone | | + + + | Preferred Language | Unknown | + + + | Marital Status | Single | + + + | Presybeterian Affiliation | 1013 | + + + | Race | Unknown | + + + | Ethnic Group | Unknown | + + + Author + + + | Author | [facility] | | | and Markana | + + + | Organization | [facility] | | | and Markana | [...] Team Providers + +------+ + | Care Rayon Coner Name | Role | Phone | + [...] | | [address] [place], | [address] | | | | | [place] [address] | [phone] | | | | | [phone] | | | +--------+ + + + [...] [place] | | | | | | [address] | | | | | | [phone] | | | | | | | | +--------+---------+ + + + | 11/01/ | Office | Neurology | Ignacio Little | | | 2019 | Visit | | E, DO [address] | | | | | | [place] | | | | | | [address] | | | | | | [phone] | | | | | | | | | | | | Elsie Espinosa, | | | | | | [address] | | | | | | [place] | | | | | | [place] [address] | | | | | | [phone] | | | | | | | | +--------+---------+ + + + documented as of this encounter Visit Diagnoses Not on filedocumented in this encounter"
--- OUTSIDE RECORDS SUMMARY | ~2019-09-17 | XMS | Encounter Summary ---
Demographics + + + | Address | [address] | | | [place] [address] | + + + | Home Phone | | + + + | Preferred Language | Unknown | + + + | Marital Status | Single | + + + | Alevism Affiliation | 1013 | + + + | Race | Unknown | + + + | Ethnic Group | Unknown | + + + Author + + + | Author | [facility] | | | and Markana | + + + | Organization | [facility] | | | and Markana [...] Team Providers + +------+ + | Care Chain Saw Mechanic Name | Role | Phone | [...] | Paperwork | | 2020 | | [facility] | E, DO [address] | | | | | [facility] [address] | [place], [place] | | | | | [address] [place], | [address] | | | | | [place] [address] | [phone] | | | | | [phone] | | | +--------+ + + + [...] [place] | | | | | | [address] | | | | | | [phone] | | | | | | | | +--------+---------+ + + + | 11/01/ | Office | Neurology | Ignacio Little | | | 2019 | Visit | | E, DO [address] | | | | | | [place] | | | | | | [address] | | | | | | [phone] | | | | | | | | | | | | Elsie Espinosa, | | | | | | [address] | | | | | | [place], [place] | | | | | | [place] [address] | | | | | | [phone] | | | | | | | | +--------+---------+ + + + documented as of this encounter Visit Diagnoses Not on filedocumented in this encounter"
--- OUTSIDE RECORDS SUMMARY | ~2019-09-17 | XMS | Encounter Summary ---
Demographics + + + | Address | [address] | | | [place] [address] | + + + | Home Phone | | + + + | Preferred Language | Unknown | + + + | Marital Status | Single | + + + | Buddhism Affiliation | 1013 | + + + | Race | Unknown | + + + | Ethnic Group | Unknown | + + + Author + + + | Author | [facility] | | | and Markana | + + + | Organization | [facility] | | | and [...] Team Providers + +------+ + | Care Saw Feeder Name | Role | Phone | + +------+ + | Ignacio Little DO | PCP | | + +------+ + Reason for Referral Evaluate & Treat (Routine) + + + + + + + | Status | Reason | Specialty | Diagnoses / | Referred By | Referred To | | | | | Procedures | Contact | Contact | + + + + + + + | Authorized | Specialty | Neurology | Diagnoses | Anabel, | Tera, | | | Services | | CADASIL | Ignacio Burris, | Jassi Simmons MD | | | Required | | (cerebral AD | DO [address] | [address] | | | | | | [address] [place] | [place] | | | | | arteriopathy | [place], [place] | [place] | | | | | w infarcts | [address] | [address] Phone: | | | | | and | Phone: | [phone] | | | | | leukoencepha | [phone] | Fax: | | | | | lopathy) | Fax: | [phone] | | | | | | [phone] | | + + + + + + + Reason for Visit +--------+ + | Reason | Comments | +--------+ + | Other | Disability PPW | +--------+ + Encounter Details +--------+---------+ + + + | Date | Type | Department | Care Team | Description | +--------+---------+ + + + | 07/21/ | Office | [place] [facility] | Ignacio Little | CADASIL (cerebral AD | | 2020 | Visit | [facility] | E, DO [address] | arteriopathy w | | | | [facility] [address] | [place], [place] | infarcts and | | | | [address] [place], | [address] | leukoencephalopathy) | | | | [place] [address] | [phone] | (Primary Dx) | | | | [phone] | | | +--------+---------+ + + + [...] encounter Progress Notes Ignacio Little DO - 07/22/2019 9:20 AM PDT Patient ID: Cristino Hickman is a 34 y.o. year old male Chief Complaint: Chief Complaint Patient presents with Other Disability PPW Assessment 1. 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 Please see scanned notes. -FU PRN. Subjective: HPI: Patient presents to the clinic for disability paperwork. The patient states he is feeling good these days. He is able to sit, stand, walk and drive. He has good ROM of his muscles. His normal work shifts are 8-12 hours. He is right-handed. He has glasses, but he did not bring them today. He is being treated for depression with Charlee hansen after his CVA. The patient is concerned about his headaches. He had his first migraine back in 01/2019 whi ch was so bad that he vomited. He states his headaches have increased in frequency. Current Outpatient Medications Medication Sig Dispense Refill [...] Patient Active Problem List Diagnosis embolic CVA Family History Problem Relation Age of Onset Diabetes Mother Stroke Father Diabetes Father History reviewed. No pertinent surgical history. Social [...] Comment: rarely Drug use: Never Sexual activity: Yes Partners: Female Lifestyle Physical activity: Days per week: Not on file Minutes per session: Not on file Stress: Not on file Relationships Social connections: Talks on phone: Not on file Gets together: Not on file Attends hoahaoism service: Not on file Active member of [...] file No Known Allergies Review of Systems Neurological: Positive for headaches. Objective: Vitals: BP 128/80 Comment: Left arm large cuff | Pulse 76 | Temp 36.8 C (98.2 F) (Oral) | Res p 24 | Ht 1.91 m (6' 3.2") | Wt 112.9 kg (249 lb) | SpO2 96% | BMI 30.96 kg/m Physical Exam Constitutional: He is oriented [...] is normal. Judgment and thought content normal. This documentation prepared by [facility]. All aspects of this chart review ed for accuracy and content by Ignacio Little DO at the date and time of service. Electronically signed by: Dr. Ignacio Little DO 07/22/2019 10:19 AM documented in this encounter Plan of Treatment [...] [place] | | | | | | [address] | | | | | | [phone] | | | | | | | | +--------+---------+ + + + | 11/01/ | Office | Neurology | Ignacio Little | | | 2019 | Visit | | E, DO [address] | | | | | | [place], [place] | | | | | | [address] | | | | | | [phone] | | | | | | | | | | | | Elsie Espinosa, | | | | | | [address] | | | | | | [place] | | | | | | [place] [address] | | | | | | [phone] | | | | | | | | +--------+---------+ + + + + + +--------+ + + | Name | Type | Priori | Associated Diagnoses | Order Schedule | | | | ty | | | + + +--------+ + + | Neurology, External | Outpatient | Routin | CADASIL (cerebral | Ordered: 07/22/2019 | | - AMB Referral | Referral | e | AD arteriopathy w | | | | | | infarcts and | | | | | | leukoencephalopathy) | | + + +--------+ + + documented as of this encounter Visit Diagnoses + + | Diagnosis | + + | 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
--- OUTSIDE RECORDS SUMMARY | ~2019-09-17 | XMS | Encounter Summary ---
Demographics + + + | Address | [address] | | | [place] [address] | + + + | Home Phone | | + + + | Preferred Language | Unknown | + + + | Marital Status | Single | + + + | Advent Affiliation | 1013 | + + + | Race | Unknown | + + + | Ethnic Group | Unknown | + + + Author + + + | Author | [facility] | | | and Markana | + + + | Organization | [facility] | | | and Markana [...] Team Providers + +------+ + | Care Certified Green Building Engineer Name | Role | Phone | + [...] + + | 04/08/ | Telephone | [facility] | Janie Patel | Abnormal Lab | | 2019 | | [address] | [place] | | | | | [place], [place] | | | | | | [address] | | | | | | [phone] | | | +--------+ + + + [...] [place] | | | | | | [address] | | | | | | [phone] | | | | | | | | +--------+---------+ + + + | 11/01/ | Office | Neurology | Ignacio Little | | | 2019 | Visit | | E, DO [address] | | | | | | [place] | | | | | | [address] | | | | | | [phone] | | | | | | | | | | | | [place], [place], | | | | | | [address] | | | | | | [place] | | | | | | [place] [address] | | | | | | [phone] | | | | | | | | +--------+---------+ + + + documented as of this encounter Visit Diagnoses Not on filedocumented in this encounter"
--- OUTSIDE RECORDS SUMMARY | ~2019-09-17 | XMS | Encounter Summary ---
Demographics + + + | Address | [address] | | | [place] [address] | + + + | Home Phone [...] Author | [facility] | | | and Markana | + + + | Organization | [facility] | | | and [...] Providers + +------+ + | Care Hand Roller Engraver Name | Role | Phone | + [...] | | [address] [place], | [address] | | | | | [place] [address] | [phone] | | | | | [phone] | | | +--------+ + + + [...] [place] | | | | | | [address] | | | | | | [phone] | | | | | | | | +--------+---------+ + + + | 11/01/ | Office | Neurology | Ignacio Little | | | 2019 | Visit | | E, DO [address] | | | | | | [place] | | | | | | [address] | | | | | | [phone] | | | | | | | | | | | | Elsie Espinosa, | | | | | | [address] | | | | | | [place] | | | | | | [place] [address] | | | | | | [phone] | | | | | | | | +--------+---------+ + + + documented as of this encounter Visit Diagnoses Not on filedocumented in this encounter"
--- OUTSIDE RECORDS SUMMARY | ~2019-09-17 | XMS | Encounter Summary ---
Demographics + + + | Address | [address] | | | [place] [address] | + + + | Home Phone | | + + + | Preferred Language | Unknown | + + + | Marital Status | Single | + + + | Hinduism Affiliation | 1013 | + + + | Race | Unknown | + + + | Ethnic Group | Unknown | + + + Author + + + | Author | [facility] | | | and Markana | + + + | Organization | [facility] | | | and [...] Team Providers + +------+ + | Care Doll Surgeon Name | Role | Phone | + +------+ + PCP | Unavailable | + +------+ + Encounter Details +--------+ + + + + | Date | Type | Department | Care Team | Description | +--------+ + + + + | 08/11/ | Hospital | [facility] | | | | [facility] | Encounter | MED CTR GENERIC OP | | | | | | CONV DEPT [address] | | | | | | [place], | | | | | | [place] [address] | | | | | | [phone] | | | +--------+ + + + [...] [place] | | | | | | [address] | | | | | | [phone] | | | | | | | | +--------+---------+ + + + | 11/01/ | Office | Neurology | Ignacio Little | | | 2019 | Visit | | E, DO [address] | | | | | | [place], [place] | | | | | | [address] | | | | | | [phone] | | | | | | | | | | | | Elsie Espinosa, | | | | | | [address] | | [address] | | | [address], [place] | | | | | | [place] [address] | | | | | | [phone] | | | | | | | | +--------+---------+ + + + documented as of this encounter Visit Diagnoses Not on filedocumented in this encounter"
--- OUTSIDE RECORDS SUMMARY | ~2019-09-17 | XMS | Encounter Summary ---
Demographics + + + | Address | [address] | | | [place] [address] | + + + | Home Phone | | + + + | Preferred Language | Unknown | + + + | Marital Status | Single | + + + | Islam Affiliation | 1013 | + + + | Race | Unknown | + + + | Ethnic Group | Unknown | + + + Author + + + | Author | [facility] | | | and Markana | + + + | Organization | [facility] | | | and [...] Team Providers + +------+ + | Care Console Manager Name | Role | Phone | [...] + + | 12/20/ | Telephone | [facility] | Janie Patel | Referral | | 2019 | | [address] | | | | | [place], [place] | | | | | | [address] | | | | | | [phone] | | | +--------+ + + + [...] [place] | | | | | | [address] | | | | | | [phone] | | | | | | | | +--------+---------+ + + + | 11/01/ | Office | Neurology | Ignacio Little | | | 2019 | Visit | | E, DO [address] | | | | | | [place], [place] | | | | | | [address] | | | | | | [phone] | | | | | | | | | | | | Elsie Espinosa, | | | | | | [address] | | | | | | [place] | | | | | | [place] [address] | | | | | | [phone] | | | | | | | | +--------+---------+ + + + documented as of this encounter Visit Diagnoses Not on filedocumented in this encounter"
--- OUTSIDE RECORDS SUMMARY | ~2019-09-17 | XMS | Encounter Summary ---
Demographics + + + | Address | [address] | | | [place] [address] | + + + | Home Phone | | + + + | Preferred Language | Unknown | + + + | Marital Status | Single | + + + | Buddhist Affiliation | NON | + + + [...] Team Providers + +------+ + | Care Landscaper Name | Role | Phone | + [...] | Visit | | [address] | | | | | | [place] [address] | | | | | | [place], [place] | | | | | | [address] | | | | | | [phone] | | | | | | | | +--------+---------+ + + + documented as of this encounter Visit Diagnoses Not on filedocumented in this encounter"
--- OUTSIDE RECORDS SUMMARY | ~2019-09-17 | XMS | Encounter Summary ---
Demographics + + + | Address | [address] | | | [place] [address] | + + + | Home Phone | | + + + | Preferred Language | Unknown | + + + | Marital Status | Single | + + + | Zoroastrianism Affiliation | 1013 | + + + | Race | Unknown | + + + | Ethnic Group | Unknown | + + + Author + + + | Author | [facility] | | | and Markana | + + + | Organization | [facility] [...] Team Providers + +------+ + | Care Recruitment Internship Name | Role | Phone | + [...] | (CVA) due | [place] | [address] | | | | | to embolism | [address] | Phone: | | | | | of middle | Phone: | [phone] | | | | | cerebral | [phone] | Fax: | | | | | artery, | Fax: | [phone] | | | | | unspecified | [phone] | | | | | | blood [...] | | | | (CVA) due | [facility] [place] | [address] | | | | | to embolism | [address] | Phone: | | | | | of middle | Phone: | [phone] | | | | | cerebral | [phone] | Fax: | | | | | artery, | Fax: | [phone] | | | | | unspecified | [phone] | | | | | | blood vessel | | | | | | | laterality | | | | | | | ([facility]) | | | +--------+ + + [...] | | | | to embolism | [address] | | | | | | of [facility] | Phone: | | | | | | cerebral | [phone] | | | | | | artery, | Fax: | | | | | | unspecified | [phone] | | | | | | blood [...] | | | | to embolism | [address] | | | | | | of [facility] | Phone: | | | | | | cerebral | [phone] | | | | | | artery, | Fax: | | | | | | unspecified | [phone] | | | | | | blood [...] + + | 03/30/ | Hospital | [facility] | Adilia Powers MD | Cerebrovascular | | 2019 - | Encounter | [facility] | [address] | accident (CVA) due | | | | CARE FLOOR [address] | [place] [address] | to embolism of | | 04/01/ | | [address] | [phone] | middle cerebral | | 2019 | | [place], [place] | | artery, unspecified | | | | [address] | Jessica Sutherland MD | blood vessel | | | | [phone] | [address] | laterality (HCC) | | | | | [place] [address] | (Primary Dx); Acute | | | | | [phone] | ischemic stroke | | | | [...] of 46 who was transferred here from [facility] for altered mental status. Patient was living with his girlfriend and parents in [place] [place] [facility] when they noted that he was altered. [...] for recs. Hypercoag w/u pending. referrral to [facility] neuro done. Needs g enetic testing, notch3 gene testing,etc. Needs pcp, but family said they will get their own pcp setup. I offered CM to setup [facility] pcp, but they declined. [facility] neuro referral al so done. 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 Patient was living with his girlfriend and parents in [place] [place] [facility] when they noted that he was altered. [...] artery distribution. Patient has been transferred for [facility] neurological evaluation. SUBJECTIVE Feels fine. Denies any [...] [place] | | | | | | [address] | | | | | | [phone] | | | | | | | | +--------+---------+ + + + | 11/01/ | Office | Neurology | Ignacio Little | | | 2019 | Visit | | E, DO [address] | | | | | | [place], [place] | | | | | | [address] | | | | | | [phone] | | | | | | | | | | | | Elsie Espinosa, | | | | | | [address] | | | | | | [place] | | | | | | [place] [address] | | | | | | [phone] | | | | | | | [...] | | | | | | laterality ([facility]) | | + + +--------+ + + | AMB REFERRAL TO | Outpatient | Routin | Cerebrovascular | Ordered: 04/01/2019 | | [facility] | Referral | e | accident (CVA) due | | | THERAPY | | | to embolism of | | | | | | middle cerebral | | | | | | artery, unspecified | | | | | | blood vessel | | | | | | laterality ([facility]) | | + + +--------+ + + | Ambulatory Referral | Outpatient | Routin | Cerebrovascular | Ordered: 04/01/2019 | | to [facility] Physical | Referral | e [...] Cerebrovascular | Ordered: 04/01/2019 | | to [facility] | Referral | e | [...] | 77Comment: Testing | <100 mg/dL | [facility] | | | Calculated | performed at [facility], [address] | | LABORATORY | | | | [address], | | | | | | [place] [address] | | | | + + + + + + + + | Specimen | + + | Blood | + + + + + + + | Performing | Address | City/State/Zipcode | Phone Number | | Organization | | | | + + + + + | [facility] | [address] | [place] [address] | [phone] | + + + + + Hemoglobin A1C (03/31/2019 5:12 AM PST) + + + + + + | Component | Value | Ref Range | Performed | Pathologist | | | | | At | Signature | + + + + + + | Hemoglobin | 5.8Comment: HbA1c method | 4.0 - 6.0 % | [facility] | | | A1c | is certified [...] | 120Comment: Estimated | <154 mg/dL | [facility] | | | Average | Average Glucose | | LABORATORY | | | Glucose | calculated from | | | | | | hemoglobin A1c by use of | | | | | | the ADArecommended | | | | | | formula.Testing | | | | | | performed at [facility], [address] | | | | | | [address] [facility], | | | | | | [place] [address] | | | | + + + + + + + + | Specimen | + + | Blood | + + + + + + + | Performing | Address | City/State/Zipcode | Phone Number | | Organization | | | | + + + + + | [facility] | [address] | [place] [address] | [phone] | + + + + + Comprehensive [...] | | | | | performed at [facility], [address] | | | | | | [facility], | | | | | | [place] [address] | | | | + + + + + + + + | Specimen | + + | Blood | + + + + + + + | Performing | Address | City/State/Zipcode | Phone Number | | Organization | | | | + + + + + | [facility] | [address] | [place] [address] | [phone] | + + + + + CBC [...] | | | | | [place] [address] | | | | + + + + + + + + | Specimen | + + | Blood | + + + + + + + | Performing | Address | City/State/Zipcode | Phone Number | | Organization | | | | + + + + + | [facility] | [address] | [place] [address] | [phone] | + + + + + CT [...] | | | | | d by [employer]. 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 | | | | | | [address],[place] | | | | | | [id number] | | | | + + + + + + + + | Specimen | + + | Blood | + + + + + + + | Performing | Address | City/State/Zipcode | Phone Number | | Organization | | | | + + + + + | [facility] | [address] | [place] [address] | [phone] | + + + + + documented [...]
--- OUTSIDE RECORDS SUMMARY | ~2019-09-17 | XMS | Encounter Summary ---
Demographics + + + | Address | [address] | | | [place] [address] | + + + | Home Phone [...] | [facility] | | | and Markana | + + + | Organization | [facility] | | | and Markana | [...] Team Providers + +------+ + | Care Senior Process Engineer Name | Role | Phone | [...] | | [address] [place], | [address] | | | | | [place] [address] | [phone] | | | | | [phone] | | | +--------+ + + + [...] [place] | | | | | | [address] | | | | | | [phone] | | | | | | | | +--------+---------+ + + + | 11/01/ | Office | Neurology | Ignacio Little | | | 2020 | Visit | | E, DO [address] | | | | | | [place], [place] | | | | | | [address] | | | | | | [phone] | | | | | | | | | | | | Elsie Espinosa, | | | | | | MD [address] | | | | | | [address], [place] | | | | | | [place] [address] | | | | | | [phone] | | | | | | | | +--------+---------+ + + + documented as of this encounter Visit Diagnoses Not on filedocumented in this encounter"
--- OUTSIDE RECORDS SUMMARY | ~2019-09-17 | XMS | Encounter Summary ---
Demographics + + + | Address | [address] | | | [place] [address] | + + + | Home Phone | | + + + | Preferred Language | Unknown | + + + | Marital Status | Single | + + + | Yazdanism Affiliation | NON | + + + [...] Team Providers + +------+ + | Care Nursing Service Administrator Name | Role | Phone | + [...] | | stroke with | [address] | [address] | | | | | residual | [address] | [address] | | | | | deficit | [place], [place] | [facility] for | | | | | Procedures | [address] | Health and | | | | | CONSULT TO | Phone: | Healing, | | | | | MEDICAL | [phone] | [address] | | | | | GENETICS | Fax: | [place], [place] | | | | | | [phone] | [address] | | | | | | | Phone: | | | | | | | [phone] | | | | | | | Fax: | | | | | | | [phone] | + +--------+ + + + + [...] CVA | Jessica Bloom MD | [address] | | | | | (cerebrovasc | [address] | [address] | | | | | ular | [address] | [address] | | | | | accident) | [place] | [place] | | | | | [facility] see | [phone] | Research | | | | | page 2 | Phone: | | | | | | Procedures | [phone] | floor | | | | | [place] NEW | Fax: | [place], [place] | | | | | PATIENT | [phone] | [address] | | | | | LEVEL [place] | | Phone: | | | | | EST PATIENT | | [phone] | | | | | LEVEL V | | Fax: | | | | | | | [phone] | + +--------+ + + + + Encounter Details +--------+---------+ + + + | Date | Type | Department | Care Team | Description | +--------+---------+ + + + | 05/14/ | Office | [facility] | Pablo Noriega MD | History of stroke | | 2020 | Visit | [facility] [place] | [address] | with residual | | | | Research Center | [facility] [place] | deficit (Primary | | | | [address] | [address] | Dx); Migraine | | | | [facility] | [phone] | without aura and | | | | [facility] | | without status | | | | floor [place], [place] | | migrainosus, not | | | | [address] | | intractable; Anxiety | | | | [phone] | | | +--------+---------+ + + + [...] in this encounter Patient Instructions Patient Instructions Pablo Noriega MD - 05/14/2019 9:00 AM PSTYou [...] Not or White ma le at the [facility] on 05/14/2019. The patient was [...] and was very sick. He was in [place] working at the [employer]. They had firearms training it was very [...] go home but he was [facility] to the hospital in the evening and he had a CT and MRI. Because they saw strokes, he wa s transferred to [facility]. During the transfer he reported a [...] get carsick now. He likes to play Wikirin games. He has never had any facial [...] drift of the upper or lower extremities. Yarqta-gq-yf se testing was normal bilaterally. Double simultaneous stimulation was intact to touch. Ca sual gait was unremarkable. Scales: NIHSS = 0 mRS = 2 (not working) Diagnostic Tests: MRI 03-30-19, [facility] in [place]; I have reviewed the images -- there are deep, extensive high white matter changes bilaterally. There is a possible hyperintensity i n the right anterior temporal lobe but no external capsule changes. No GRE or SWI was done. CTA head and neck: Echo at [facility] -- performed on 03-31-19 and reportedly normal Tele -- normal sinus rhythm LDL 77, A1C 5.8, normal coags including: factor VIII, AT III, protein C and S, APC resistan ce, ACLA, betaglycoproteins, prothrombin gene mutation. Lupus inhibitor indeterminate. UDS was noted to be unremarkable at [place]. Assessment & Plan: Cristino is a pleasant [...] [facility] can also assist with pre-authorizations [...] should new concerns arise (they live in [place] but have family in [place]). Stroke Type: Ischemic Stroke Location: Hemisperic Etiology: [...] | | | | | [address] [facility] | | | | | | [place], [place] | | | | | | [address] | | | | | | [phone] | | | | | | | [...]
--- OUTSIDE RECORDS SUMMARY | ~2019-09-17 | XMS | Encounter Summary ---
Demographics + + + | Address | [address] | | | [place] [address] | + + + | Home Phone | | + + + | Preferred Language | Unknown | + + + | Marital Status | Single | + + + | Mormon Affiliation | 1013 | + + + | Race | Unknown | + + + | Ethnic Group | Unknown | + + + Author + + + | Author | [facility] | | | and Markana | + + + | Organization | [facility] | | | and Markana [...] Team Providers + +------+ + | Care Generator Mechanic Name | Role | Phone | [...] + + | 03/31/ | Telephone | [facility] | Юлия Yeh | Letter for | | 2019 | | [address] | School/[place] ([place] | | | | [place], [place] | | STD) | | | | [address] | | | | | | [phone] | | | +--------+ + + + [...] [place] | | | | | | [address] | | | | | | [phone] | | | | | | | | +--------+---------+ + + + | 11/01/ | Office | Neurology | Ignacio Little | | | 2019 | Visit | | E, DO [address] | | | | | | [place] | | | | | | [address] | | | | | | [phone] | | | | | | | | | | | | Elsie Espinosa, | | | | | | [address] | | | | | | [place] | | | | | | [place] [address] | | | | | | [phone] | | | | | | | | +--------+---------+ + + + documented as of this encounter Visit Diagnoses Not on filedocumented in this encounter"
--- OUTSIDE RECORDS SUMMARY | ~2019-09-17 | XMS | Clinical Summary ---
Demographics + + + | Address | [address] | | | [place] [address] | + + + | Home Phone | | + + + | Preferred Language | Unknown | + + + | Marital Status | Single | + + + | Synagogue Affiliation | NON | + + + [...] Team Providers + +------+ + | Care Registration Coordinator Name | Role | Phone | + +------+ + | Ignacio Little DO | PCP | | + +------+ + Source Comments SARWAT is fully live on both [facility] Ambulatory and [facility] InPatient.[facility] Allergies No Known Allergies Medications + [...] | Visit | | Lane Gutierrez MD [address] | | | | | | [address] | | | | | | [place], [place] | | | | | | [address] | | | | | | [phone] | | | | | | | [...] | | jesus manuel | 4 | [address] | | | | Y | | for | | [place], | | | | [place] | | all | | [place] [address] | | | | | | dates [...] | | derrick/Dorian | | 1985 | [phone] | [place] [address] | | | jed | | | 1 (Home) | | + +--------+ +--------+ + +
--- OUTSIDE RECORDS SUMMARY | ~2019-09-17 | XMS | Encounter Summary ---
Demographics + + + | Address | [address] | | | [place] [address] | + + + | Home Phone | | + + + | Preferred Language | Unknown | + + + | Marital Status | Single | + + + | Spiritism Affiliation | 1013 | + + + | Race | Unknown | + + + | Ethnic Group | Unknown | + + + Author + + + | Author | [facility] | | | and Markana | + + + | Organization | [facility] | [...] Team Providers + +------+ + | Care Hire Car Driver Name | Role | Phone | + +------+ + | Ignacio Little DO | PCP | | + +------+ + Reason for Visit + + + | Reason | Comments | + + + | Hospitalization | | + + + Encounter Details +--------+ + + + + | Date | Type | Department | Care Team | Description | +--------+ + + + + | 04/05/ | Telephone | [place] [facility] | Ignacio Little | Hospitalization | | 2019 | | [facility] | E, DO [address] | | | | | MEDICAL CL[facility] | [place], [place] | | | | | [address] [place], | [address] | | | | | [place] [address] | [phone] | | | | | [phone] | | | +--------+ + + + [...] [place] | | | | | | [address] | | | | | | [phone] | | | | | | | | +--------+---------+ + + + | 11/01/ | Office | Neurology | Ignacio Little | | | 2019 | Visit | | E, DO [address] | | | | | | [place], [place] | | | | | | [address] | | | | | | [phone] | | | | | | | | | | | | Elsie Espinosa, | | | | | | MD [address] | [address] | | | [address], [place] | | | | | | [place] [address] | | | | | | [phone] | | | | | | | | +--------+---------+ + + + documented as of this encounter Visit Diagnoses Not on filedocumented in this encounter"
--- OUTSIDE RECORDS SUMMARY | ~2019-09-17 | XMS | Encounter Summary ---
Demographics + + + | Address | [address] | | | [place] [address] | + + + | Home Phone | | + + + | Preferred Language | Unknown | + + + | Marital Status | Single | + + + | Anabaptist Affiliation | 1013 | + + + | Race | Unknown | + + + | Ethnic Group | Unknown | + + + Author + + + | Author | [facility] | | | and Markana | + + + | Organization | [facility] | | | and Markana [...] Team Providers + +------+ + | Care Exhaust Tender Name | Role | Phone | + +------+ + | Ignacio Little DO | PCP | | + +------+ + Reason for Visit +--------+ + | Reason | Comments | +--------+ + | Letter | | +--------+ + Encounter Details +--------+ + + + + | Date | Type | Department | Care Team | Description | +--------+ + + + + | 07/13/ | Telephone | [place] [facility] | Ignacio Little | Letter | | 2020 | | [facility] | E, DO [address] | | | | | MEDICAL CLIN[address] | [place], [place] | | | | | [address] [place], | [address] | | | | | [place] [address] | [phone] | | | | | [phone] | | | +--------+ + + + [...] [place] | | | | | | [address] | | | | | | [phone] | | | | | | | | +--------+---------+ + + + | 11/01/ | Office | Neurology | Ignacio Little | | | 2019 | Visit | | E, DO [address] | | | | | | [place] | | | | | | [address] | | | | | | [phone] | | | | | | | | | | | | Elsie Espinosa, | | | | | | [address] | | | | | | [place] | | | | | | [place] [address] | | | | | | [phone] | | | | | | | | +--------+---------+ + + + documented as of this encounter Visit Diagnoses Not on filedocumented in this encounter"
--- OUTSIDE RECORDS SUMMARY | ~2019-09-17 | XMS | Encounter Summary ---
Demographics + + + | Address | [address] | | | [place] [address] | + + + | Home Phone [...] Author | [facility] | | | and Markana | + + + | Organization | [facility] | | | and Markana [...] Team Providers + +------+ + | Care Payroll And Benefits Manager Name | Role | Phone | [...] | | | | to embolism | [address] | [place], [place] | | | | | of middle | Phone: | [address] | | | | | cerebral | [phone] | Phone: | | | | | artery, | Fax: | [phone] | | | | | unspecified | [phone] | Fax: | | | | | blood vessel | | [phone] | | | | | laterality | [...] | lar accident | [address] [place] | [place] | | | | | (CVA) due | [place], [place] | Health and | | | | | to embolism | [address] | Service | | | | | of middle | Phone: | | | | | | cerebral | [phone] | | | | | | artery, | Fax: | | | | | | unspecified | [phone] | | | | | | blood vessel | | | | | | | laterality | | | | | | | (HCC) | | | +--------+ + + + + + + + | Scheduling Instructions | + + | At [facility] in [place]. | + + Self-referral (Routine) +--------+ + [...] | lar accident | [address] [place] | [place] | | | | | (CVA) due | [place], [place] | Health and | | | | | to embolism | [address] | Service | | | | | of middle | Phone: | | | | | | cerebral | [phone] | | | | | | artery, | Fax: | | | | | | unspecified | [phone] | | | | | | blood vessel | | | | | | | laterality | | | | | | | (HCC) | | | +--------+ + + + + + + + | Scheduling Instructions | + + | At [facility] in [place]. | + + Evaluate & Treat (Routine) [...] | | | | | [place] | [address], | | | | | | [place], [place] | [place] | | | | | | [address] | [place], [place] | | | | | | Phone: | [address] Phone: | | | | | | [phone] | [phone] | | | | | | Fax: | Fax: | | | | | | [phone] | [phone] | +--------+ + + + + + [...] | lar accident | [address] [place] | [facility] | | | | | (CVA) due | [place], [place] | [address] | | | | | to embolism | [address] | [place], [place] | | | | | of middle | Phone: | [address] | | | | | cerebral | [phone] | Phone: | | | | | artery, | Fax: | [phone] | | | | | unspecified | [phone] | Fax: | | | | | blood vessel | | [phone] | | | | | laterality | [...] Cerebrovascular | | 2019 | Visit | [facility] | E, DO [address] | accident (CVA) due | | | | MEDICAL CLIN[facility] [address] | [place] | to embolism of | | | | [address] [place], | [address] | middle cerebral | | | | [place] [address] | [phone] | artery, unspecified | | | | [phone] | | blood vessel | | | [...] Occupational Therapy, External - AMB Referral - [facility] Physical Therapy, External - AMB [...] or >, Quadrivalent PSKT or Vial (Fluzone) [[id number]] Plan: -Referral provided to [facility] neurology today. -Informed patient and family about pituitary growth, and reassured them it will be worked u p in the near future. Reassured them it is common to have a pituitary growth. -Filled out paperwork today. See scanned documents. -Referral provided for Dr. Espinosa in sleep studies. -Referral provided for speech therapy, occupational therapy, and physical therapy at [facility] in [place]. -Initiated fluoxetine 20 mg QD. -Flu shot [...] few days, with intermittent return s to [facility], and he had difficulty performing any [...] and the results, he was sent to [facility] for evaluation. They performed an echo cardiogram [...] file Gets together: Not on file Attends sikhism service: Not on file Active member of [...] This documentation prepared by Harriett Kitchen medical field representative. All aspects of this chart review ed [...] [place] | | | | | | [address] | | | | | | [phone] | | | | | | | | +--------+---------+ + + + | 11/01/ | Office | Neurology | Ignacio Little | | | 2019 | Visit | | E, DO [address] | | | | | | [place], [place] | | | | | | [address] | | | | | | [phone] | | | | | | | | | | | | Elsie Espinosa, | | | | | | MD [address] | | | [address], [place] | | | | | | [place] [address] | | | | | | [phone] | | | | | | | [...]
--- OUTSIDE RECORDS SUMMARY | ~2019-09-17 | XMS | Encounter Summary ---
Demographics + + + | Address | [address] | | | [place] [address] | + + + | Home Phone | | + + + | Preferred Language | Unknown | + + + | Marital Status | Single | + + + | Adventist Affiliation | 1013 | + + + | Race | Unknown | + + + | Ethnic Group | Unknown | + + + Author + + + | Author | [facility] | | | and Markana | + + + | Organization | [facility] | | | and [...] Team Providers + +------+ + | Care Head Of Science Name | Role | Phone | + [...] + + | 04/02/ | Telephone | [facility] | Janie Patel | Disability Form | | 2019 | | [address] | T, RN | | | | | [place] | | | | | | [address] | | | | | | [phone] | | | +--------+ + + + [...] [place] | | | | | | [address] | | | | | | [phone] | | | | | | | | +--------+---------+ + + + | 11/01/ | Office | Neurology | Ignacio Little | | | 2019 | Visit | | E, DO [address] | | | | | | [place] | | | | | | [address] | | | | | | [phone] | | | | | | | | | | | | Elsie Espinosa, | | | | | | [address] | | | | | | [place] | | | | | | [place] [address] | | | | | | [phone] | | | | | | | | +--------+---------+ + + + documented as of this encounter Visit Diagnoses Not on filedocumented in this encounter"
--- OUTSIDE RECORDS SUMMARY | ~2019-09-17 | XMS | Clinical Summary ---
Demographics + + + | Address | [address] | | | [place] [address] | + + + | Home Phone | | + + + | Preferred Language | Unknown | + + + | Marital Status | Single | + + + | Voodoo Affiliation | 1013 | + + + | Race | Unknown | + + + | Ethnic Group | Unknown | + + + Author + + + | Author | [facility] | | | and Markana | + + + | Organization | [facility] | | | and Markana | [...] Team Providers + +------+ + | Care Setter Induction Heating Equipment Name | Role | Phone | + [...] [place] | | | | | | [address] | | | | | | [phone] | | | | | | | | +--------+---------+ + + + | 11/01/ | Office | Neurology | Ignacio Little | | | 2019 | Visit | | E, [address] | | | | | | [place], [place] | | | | | | [address] | | | | | | [phone] | | | | | | | | | | | | Elsie Espinosa, | | | | | | MD [address] | | | | | | [place] | | | | | | [place] [address] | | | | | | [phone] | | | | | | | [...] + +------+ | MODA | MODA | [id number] | 04/14/19 | [id number] | [address] | PPO | | | [place] | | 19-Pre | 9 | [id number] | | | | [place] | | sent | | [place], | | | | [place] | | | | [place] [address] | | | | PPO | | | | | | +-------+--------+ +--------+ + +------+ | MODA | MODA | [id number] | 04/14/19 | [id number] | [address] | PPO | | | PEBB | | 19-Pre | 9 | [id number] | | | | [place] | | sent | | [place], | | | | [place] PPO | | | | [place] [address] | | +-------+--------+ +--------+ + +------+ + [...] | 1984 | [phone] | [place] [address] | | | jed | | | 1 (Home) | | + +--------+ +--------+ + + | Cristino Hickman | Person | Self | [birth year] | [address] | | | al/Fam | | 1984 | [phone] | [place] [address] | | | jed | | | 1 (Home) | | + +--------+ +--------+ + + Advance Directives + + + + + | Type | Date Recorded | Patient | Explanation | | | | Welfare Investigator | | + + + + + | Power of | | | | | Backshoe Person | | | | + + + [...]
--- OUTSIDE RECORDS SUMMARY | ~2019-09-17 | XMS | Encounter Summary ---
Demographics + + + | Address | [address] | | | [place] [address] | + + + | Home Phone | | + + + | Preferred Language | Unknown | + + + | Marital Status | Single | + + + | Caodaism Affiliation | 1013 | + + + | Race | Unknown | + + + | Ethnic Group | Unknown | + + + Author + + + | Author | [facility] | | | and Markana | + + + | Organization | [facility] | | | and [...] Team Providers + +------+ + | Care Trapper Animal Name | Role | Phone | + [...] | | [address] [place], | [address] | | | | | [place] [address] | [phone] | | | | | [phone] | | | +--------+ + + + [...] [place] | | | | | | [address] | | | | | | [phone] | | | | | | | | +--------+---------+ + + + | 11/01/ | Office | Neurology | Ignacoi Little | | | 2019 | Visit | | E, DO [address] | | | | | | [place], [place] | | | | | | [address] | | | | | | [phone] | | | | | | | | | | | | Elsie Espinosa, | | | | | | MD [address] | | | | | | [address], [place] | | | | | | [place] [address] | | | | | | [phone] | | | | | | | | +--------+---------+ + + + documented as of this encounter Visit Diagnoses Not on filedocumented in this encounter"
--- OUTSIDE RECORDS SUMMARY | ~2019-09-17 | XMS | Encounter Summary ---
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 This documentation prepared by Harriett Kitchen electromedical equipment repairer. All aspects of this chart review ed [...] [place] | | | | | | [address] | | | | | | [phone] | | | | | | | | +--------+---------+ + + + | 11/01/ | Office | Neurology | Ignacio Little | | | 2019 | Visit | | E, DO [address] | | | | | | [place], [place] | | | | | | [address] | | | | | | [phone] | | | | | | | | | | | | Elsie Espinosa, | | | | | | [address] | | | | | | [place] | | | | | | [place] [address] | | | | | | [phone] | | | | | | | [...]
--- OUTSIDE RECORDS SUMMARY | ~2019-09-17 | XMS | Encounter Summary ---
Demographics + + + | Address | [address] | | | [place] [address] | + + + | Home Phone | | + + + | Preferred Language | Unknown | + + + | Marital Status | Single | + + + | Presybeterian Affiliation | 1013 | + + + | Race | Unknown | + + + | Ethnic Group | Unknown | + + + Author + + + | Author | [facility] | | | and Markana | + + + | Organization | [facility] | | | and Markana | [...] Team Providers + +------+ + | Care Outreach Associate Name | Role | Phone | + [...] | | [address] [place], | [address] | | | | | [place] [address] | [phone] | | | | | [phone] | | | +--------+ + + + [...] [place] | | | | | | [address] | | | | | | [phone] | | | | | | | | +--------+---------+ + + + | 11/01/ | Office | Neurology | Ignacio Little | | | 2019 | Visit | | E, DO [address] | | | | | | [place] | | | | | | [address] | | | | | | [phone] | | | | | | | | | | | | Elsie Espinosa, | | | | | | [address] | | | | | | [place] | | | | | | [place] [address] | | | | | | [phone] | | | | | | | | +--------+---------+ + + + documented as of this encounter Visit Diagnoses Not on filedocumented in this encounter"
--- OUTSIDE RECORDS SUMMARY | ~2019-09-17 | XMS | Encounter Summary ---
Demographics + + + | Address | [address] | | | [place] [address] | + + + | Home Phone | | + + + | Preferred Language | Unknown | + + + | Marital Status | Single | + + + | Taoism Affiliation | NON | + + + | Race | White | + + + | Ethnic Group | Not or | + + + Author + + + | Author | [facility] | + + + | Organization | [facility] | + + + | Address | Unknown | + + + | Phone | Unavailable | + + + Support + + +---------+ + | Name | Relationship | Address | Phone | + + +---------+ + | Ayesha Hankins | ECON | Unknown | | + + +---------+ + Care Team Providers + +------+ + | Care Staffing Coordinator Name | Role | Phone | + +------+ + | Ignacio Little DO | PCP | | + +------+ + Encounter Details +--------+ + + + + | Date | Type | Department | Care Team | Description | +--------+ + + + + | 07/26/ | Telephone | General Adult | Charlene Gomez, | | | 2019 | | [facility] | [facility] [address] | | | | | [place] [address] | [facility] | | | | | [address] | [facility] [place] | | | | | Physicians [place], | [address] | | | | | 3rd floor | [phone] | | | | | [place], [place] | | | | | | [address] | | | | | | [phone] | | | +--------+ + + + [...] | Visit | | Lane Gutierrez MD [address] | | | | | [address] [facility] | | | | | | [address] [place], [place] | | | | | | [address] | | | | | | [phone] | | | | | | | | +--------+---------+ + + + documented as of this encounter Visit Diagnoses Not on filedocumented in this encounter"
--- OUTSIDE RECORDS SUMMARY | ~2019-09-17 | XMS | Encounter Summary ---
Demographics + + + | Address | [address] | | | [place] [address] | + + + | Home Phone | | + + + | Preferred Language | Unknown | + + + | Marital Status | Single | + + + | Latter-Day Affiliation | 1013 | + + + | Race | Unknown | + + + | Ethnic Group | Unknown | + + + Author + + + | Author | [facility] | | | and Markana | + + + | Organization | [facility] | [...] Team Providers + +------+ + | Care Case Resolution Specialist Name | Role | Phone | [...] [place] | | | | | | [place], [place] | | | | | | [address] | | | | | | [phone] | | | +--------+ + + + [...] [place] | | | | | | [address] | | | | | | [phone] | | | | | | | | +--------+---------+ + + + | 11/01/ | Office | Neurology | Ignacio Little | | | 2019 | Visit | | E, DO [address] | | | | | | [place], [place] | | | | | | [address] | | | | | | [phone] | | | | | | | | | | | | Elsie Espinosa, | | | | | | MD [address], [place] | | | | | | [place], [place] [address] | | | | | | [phone] | | | | | | | | +--------+---------+ + + + documented as of this encounter Visit Diagnoses Not on filedocumented in this encounter"
[~2019-09-17 21:38] MED LIST changes: +ASPIRIN325 MG PO; +LIPITOR40 MG PO
--- OUTSIDE RECORDS SUMMARY | 2019-09-17 21:44 | XMS ---
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 Eugenio has no Care Guidelines for this patient. Care History Medical/Surgical 04/08/2019 [facility] - PATIENT DOES NOT HAVE A PCP LISTED- [facility] TRIED TO CONTACT PATIENT VIA PHONE- - PHONE NUMBER GOES TO STRAIGHT DIAL TONE - UNABLE TO CONTACT PATIENT. E.D. VISIT COUNT (12 MO.) 4 [facility] TOTAL 4 NOTE: Visits indicate total known visits. ED/C VISIT TRACKING (12 MO.) 09/17/2019 21:[address] [facility] [place] TYPE: Emergency COMPLAINT: - SEIZURE SYMPTOMS 04/03/2019 16:02 [facility] [place] TYPE: Emergency COMPLAINT: - CONFUSION DIAGNOSES: - Other custodial (current) drug therapy - Cereb autosom dom artopath w subcort infarcts \T\ leukoenceph - intermediate designer (current) use of aspirin 03/29/2019 18:[address] [facility] [place] TYPE: Emergency COMPLAINT: - ENCEPHALOPATHY 03/28/2019 10:[address] 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 TYPE: Observation COMPLAINT: - ENCEPHALOPATHY DIAGNOSES: - Hypokalemia - Altered mental status, unspecified - Abnormal findings on diagnostic imaging of skull and head, no - Family history of ischemic heart disease and other diseases o - Cerebral infarction, unspecified [email or web address]
[2019-09-17] MEDS ORDERED: WELLBUTRIN SR100 MG PO (22:06)
== END 2019-09-17 23:48 | disposition home or self-care (01) ==
LOC: ED 21:38
DX: R29.90 Unspecified symptoms and signs involving the nervous system (principal); Z79.899 Other long term (current) drug therapy; Z79.82 Long term (current) use of aspirin
CPT/HCPCS: 70450; 80053; 84484; 85025; 99284-25